=== PATIENT | male | born 1965 | race African-American/Black ===

== ENCOUNTER 2016-09-09 12:56 | Emergency (ER) | payer MEDICARE, MEDICAID ==
[~2016-09-09] VITALS: Ht 180.3 cm; Wt 82.0 kg
[2016-09-09 14:46] LABS: BASOPHILS % 0.5 % (0.0-2.0); EOSINOPHILS % 2.5 % (0.0-5.0); HEMATOCRIT. 27.9 % (42.0-52.0); LYMPHOCYTES % 29.6 % (20.0-50.0); MEAN CORPUSCULAR HEMOGLOBIN 29.5 pg (28.0-32.0); MEAN CORPUSCULAR HGB CONC 32.4 g/dL (31.0-37.0); MEAN CORPUSCULAR VOLUME 91.1 fL (80.0-94.0); MEAN PLATELET VOLUME 8.4 fl (7.4-10.4); MONOCYTES % 13.2 % (2.0-8.0); NEUTROPHILS % 54.2 % (40.0-76.0); PLATELET 292 x1000/uL (130-400); RED BLOOD CELL COUNT 3.06 mill/uL (4.7-6.1); RED CELL DISTRIBUTION WIDTH 17.6 % (11.6-14.6); WHITE BLOOD COUNT 5.7 x1000/uL (4.5-11.0)
[2016-09-09 14:51] LABS: INR 1.2; PROTHROMBIN TIME 12.3 sec
[2016-09-09 14:55] LABS: CALCIUM 7.6 mg/dL (8.5-10.1)
[2016-09-09 19:25] VITALS: BP 122/64
== END 2016-09-09 21:24 | disposition home or self-care (01) ==
LOC: ER 13:03
DX: D68.9 Coagulation defect, unspecified (principal); M96.830 Postprocedural hemorrhage of a musculoskeletal structure following a musculoskeletal system procedure; E11.9 Type 2 diabetes mellitus without complications; Z99.2 Dependence on renal dialysis
CPT/HCPCS: 36415; 80048; 85025; 85610; 99284

== ENCOUNTER 2016-09-27 10:13 | Inpatient (IN) | payer MEDICARE, MEDICAID ==
[~2016-09-27] VITALS: Ht 172.7 cm; Wt 79.4 kg
[2016-09-27 11:12] LABS: BASOPHILS % 0.6 % (0.0-2.0); EOSINOPHILS % 0.1 % (0.0-5.0); HEMATOCRIT. 31.5 % (42.0-52.0); HEMOGLOBIN. 10.1 g/dL (14.0-18.0); MEAN CORPUSCULAR HEMOGLOBIN 28.9 pg (28.0-32.0); MEAN CORPUSCULAR VOLUME 90.5 fL (80.0-94.0); MEAN PLATELET VOLUME 8.3 fl (7.4-10.4); NEUTROPHILS % 77.3 % (40.0-76.0); PLATELET 313 x1000/uL (130-400); RED BLOOD CELL COUNT 3.48 mill/uL (4.7-6.1); RED CELL DISTRIBUTION WIDTH 17.3 % (11.6-14.6)
[2016-09-27 11:20] LABS: INR 1.3
[2016-09-27 11:29] LABS: CARBON DIOXIDE 23 mEq/L (21-32); CHLORIDE 98 mEq/L (98-107); TROPONIN I 0.02 ng/mL (0.00-0.04)
[2016-09-27] MEDS ORDERED: AZITHROMYCIN 500 MG in DEXT 5% WATER 250 ML IV ONE (11:45)
[2016-09-27] MEDS ORDERED: CEFTRIAXONE 1 G PREMIX 50 ML IV ONE (11:45)
[2016-09-27] MEDS ORDERED: IPRATROPIUM/ALBUTEROL 0.5-3(2.5)MG/3ML NEB INH PRN (12:15)
[2016-09-27] MEDS ORDERED: ONDANSETRON HCL 4MG/2ML VIAL IV PRN (12:15)
[2016-09-27] MEDS ORDERED: DIPHENHYDRAMINE 50MG/ML VIAL IV PRN (12:15)
[2016-09-27] MEDS ORDERED: CLONIDINE 0.1MG TABLET PO PRN (12:15)
[2016-09-27] MEDS ORDERED: DOCUSATE SODIUM 100MG CAPSULE PO PRN (12:15)
[2016-09-27] MEDS ORDERED: LORAZEPAM 2MG/ML CPJ IV PRN (12:15)
[2016-09-27] MEDS ORDERED: MAGNESIUM/ALUMINUM HYDROXIDE/SIMETHICONE 30ML UDC PO PRN (12:15)
[2016-09-27] MEDS ORDERED: ACETAMINOPHEN 325MG TABLET PO PRN (12:15)
[2016-09-27] MEDS ORDERED: GUAIFENESIN 200MG/10ML SUGAR FREE UDC PO PRN (12:15)
[2016-09-27] MEDS ORDERED: ENOXAPARIN 40MG/0.4ML SYR SUBCUT SCH (12:15)
[2016-09-27] MEDS ORDERED: DEXTROSE 50% WATER 50ML SYRINGE IV ONE (14:00)
[2016-09-27] MEDS ORDERED: INSULIN REGULAR (HUMULIN R) 300UNITS/3ML IV ONE (14:00)
[2016-09-27] MEDS ORDERED: ALBUTEROL (0.083%) 2.5MG/3ML NEB HHN SCH (14:00)
[2016-09-27] MEDS ORDERED: HYDROMORPHONE HCL/PF 2MG/ML CPJ IV PRN (16:30)
[2016-09-27] MEDS ORDERED: NA PHOS,M-B/NA PHOS,DI-BA ENEMA 118ML PR PRN (16:30)
[2016-09-27 16:50] VITALS: BP 128/80
[2016-09-27] MEDS: BLOOD SUGAR DIAGNOSTIC STRIP TEST SCH ×2 (17:40→21:23)
[2016-09-27] MEDS ORDERED: DEXTROSE 50% WATER 50ML SYRINGE IV PRN (17:45)
[2016-09-27] MEDS: ENOXAPARIN 30MG/0.3ML SYR SUBCUT SCH (18:00)
[2016-09-27] MEDS ORDERED: LEVOFLOXACIN 500MG PREMIX 100 ML IV SCH (18:00)
[2016-09-27] MEDS: INSULIN LISPRO 100 UNITS/ML SUBCUT SCH ×2 (18:19→21:32)
[2016-09-27 20:00] VITALS: BP 119/72
[2016-09-27 20:37] VITALS: BP 119/72
[2016-09-27] MEDS: HYDROCODONE/ACETAMINOPHEN 10/325MG TABLET PO PRN (21:33)
[2016-09-28] VITALS: BP 117/74
[2016-09-28] MEDS: IPRATROPIUM/ALBUTEROL 0.5-3(2.5)MG/3ML NEB HHN SCH ×4 (00:12→20:50)
[2016-09-28] MEDS ORDERED: NEPVIT PO (01:47)
[2016-09-28] MEDS ORDERED: FAMO20TA8 PO (01:47)
[2016-09-28] MEDS ORDERED: GABA-529 PO (01:47)
[2016-09-28] MEDS ORDERED: SEVE800T8 PO (01:47)
[2016-09-28] MEDS ORDERED: LOPE2TAB26 PO (01:47)
[2016-09-28] MEDS ORDERED: DOCU-150 PO (01:47)
[2016-09-28] MEDS ORDERED: ACET-2178 PO (01:47)
[2016-09-28] MEDS ORDERED: ASPI-1035 PO (01:47)
[2016-09-28 04:00] VITALS: BP 105/69
[2016-09-28 06:29] LABS: BASOPHILS % 0.4 % (0.0-2.0); EOSINOPHILS % 0.3 % (0.0-5.0); HEMATOCRIT. 31.9 % (42.0-52.0); HEMOGLOBIN. 10.1 g/dL (14.0-18.0); LYMPHOCYTES % 13.3 % (20.0-50.0); MEAN CORPUSCULAR HEMOGLOBIN 28.6 pg (28.0-32.0); MEAN CORPUSCULAR VOLUME 90.7 fL (80.0-94.0); MEAN PLATELET VOLUME 8.7 fl (7.4-10.4); MONOCYTES % 12.6 % (2.0-8.0); NEUTROPHILS % 73.4 % (40.0-76.0); PLATELET 339 x1000/uL (130-400); RED BLOOD CELL COUNT 3.52 mill/uL (4.7-6.1); RED CELL DISTRIBUTION WIDTH 17.1 % (11.6-14.6)
[2016-09-28 07:07] LABS: CARBON DIOXIDE 26 mEq/L (21-32); CHLORIDE 96 mEq/L (98-107); HDL CHOLESTEROL 51 mg/dL (40-59); LDL CHOLESTEROL 38 mg/dL (5-100)
[2016-09-28 07:12] LABS: TROPONIN I < 0.02 ng/mL (0.00-0.04)
[2016-09-28] MEDS: INSULIN LISPRO 100 UNITS/ML SUBCUT SCH ×4 (07:42→21:37)
[2016-09-28] MEDS: BLOOD SUGAR DIAGNOSTIC STRIP TEST SCH ×4 (07:42→21:29)
[2016-09-28 08:00] VITALS: BP 107/69
[2016-09-28] MEDS: SEVELAMER CARBONATE 800 MG TABLET PO SCH ×3 (09:08→18:37)
[2016-09-28] MEDS: FAMOTIDINE 20MG TABLET PO SCH (09:08)
[2016-09-28] MEDS: ASPIRIN 81MG EC TABLET PO SCH (09:08)
[2016-09-28] MEDS: FOLIC ACID/VITAMIN B COMP W-C TABLET PO SCH (09:08)
[2016-09-28] MEDS: HYDROCODONE/ACETAMINOPHEN 10/325MG TABLET PO PRN ×2 (09:09→13:36)
[2016-09-28 12:00] VITALS: BP 106/70
[2016-09-28 16:00] VITALS: BP 110/68
[2016-09-28] MEDS: ENOXAPARIN 30MG/0.3ML SYR SUBCUT SCH (17:20)
[2016-09-28] MEDS: GABAPENTIN 100MG CAPSULE PO SCH (17:20)
[2016-09-28 20:00] VITALS: BP 113/78
[2016-09-28] MEDS: INSULIN DETEMIR UD 100 UNITS/ML SYR SUBCUT SCH (21:36)
[2016-09-29] VITALS: BP 133/75
[2016-09-29] MEDS: HYDROCODONE/ACETAMINOPHEN 10/325MG TABLET PO PRN ×4 (01:17→22:00)
[2016-09-29] MEDS: IPRATROPIUM/ALBUTEROL 0.5-3(2.5)MG/3ML NEB HHN SCH ×4 (03:05→20:26)
[2016-09-29 03:19] LABS: HEMATOCRIT. 29.6 % (42.0-52.0); HEMOGLOBIN. 9.7 g/dL (14.0-18.0); MEAN CORPUSCULAR HEMOGLOBIN 29.6 pg (28.0-32.0); MEAN CORPUSCULAR VOLUME 90.5 fL (80.0-94.0); MEAN PLATELET VOLUME 8.1 fl (7.4-10.4); PLATELET 304 x1000/uL (130-400); RED BLOOD CELL COUNT 3.27 mill/uL (4.7-6.1)
[2016-09-29 04:00] VITALS: BP 104/65
[2016-09-29] MEDS: BLOOD SUGAR DIAGNOSTIC STRIP TEST SCH ×4 (06:09→22:04)
[2016-09-29 08:30] VITALS: BP 126/85
[2016-09-29 09:50] LABS: PLATELET ESTIMATE NORMAL
[2016-09-29] MEDS: FOLIC ACID/VITAMIN B COMP W-C TABLET PO SCH (10:34)
[2016-09-29] MEDS: FAMOTIDINE 20MG TABLET PO SCH (10:34)
[2016-09-29] MEDS: SEVELAMER CARBONATE 800 MG TABLET PO SCH ×3 (10:34→17:30)
[2016-09-29] MEDS: ASPIRIN 81MG EC TABLET PO SCH (10:35)
[2016-09-29] MEDS: INSULIN LISPRO 100 UNITS/ML SUBCUT SCH ×4 (10:39→22:03)
[2016-09-29 12:00] VITALS: BP 122/81
[2016-09-29 16:51] VITALS: BP 115/74
[2016-09-29] MEDS: GABAPENTIN 100MG CAPSULE PO SCH (17:30)
[2016-09-29] MEDS ORDERED: LEVOFLOXACIN 250MG PREMIX 50 ML IV SCH (18:00)
[2016-09-29] MEDS: ENOXAPARIN 30MG/0.3ML SYR SUBCUT SCH (18:39)
[2016-09-29 20:00] VITALS: BP 121/74
[2016-09-29] MEDS: INSULIN DETEMIR UD 100 UNITS/ML SYR SUBCUT SCH (22:03)
[2016-09-30] VITALS: BP 121/84
[2016-09-30] MEDS: IPRATROPIUM/ALBUTEROL 0.5-3(2.5)MG/3ML NEB HHN SCH ×3 (01:06→14:29)
[2016-09-30] MEDS: HYDROCODONE/ACETAMINOPHEN 10/325MG TABLET PO PRN ×3 (01:50→14:10)
[2016-09-30 04:00] VITALS: BP 122/95
[2016-09-30 06:04] LABS: HEMATOCRIT. 28.8 % (42.0-52.0); HEMOGLOBIN. 9.3 g/dL (14.0-18.0); MEAN CORPUSCULAR HEMOGLOBIN 29.4 pg (28.0-32.0); MEAN CORPUSCULAR VOLUME 90.5 fL (80.0-94.0); MEAN PLATELET VOLUME 8.6 fl (7.4-10.4); PLATELET 285 x1000/uL (130-400); RED BLOOD CELL COUNT 3.18 mill/uL (4.7-6.1); RED CELL DISTRIBUTION WIDTH 17.1 % (11.6-14.6)
[2016-09-30] MEDS: BLOOD SUGAR DIAGNOSTIC STRIP TEST SCH ×2 (07:40→12:29)
[2016-09-30 08:00] VITALS: BP 136/84
[2016-09-30 08:36] LABS: PLATELET ESTIMATE NORMAL
[2016-09-30] MEDS: FOLIC ACID/VITAMIN B COMP W-C TABLET PO SCH (08:49)
[2016-09-30] MEDS: ASPIRIN 81MG EC TABLET PO SCH (08:49)
[2016-09-30] MEDS: SEVELAMER CARBONATE 800 MG TABLET PO SCH ×2 (08:49→14:08)
[2016-09-30] MEDS: INSULIN LISPRO 100 UNITS/ML SUBCUT SCH ×2 (08:50→14:07)
[2016-09-30 12:00] VITALS: BP 124/74
[2016-09-30] MEDS: FAMOTIDINE 20MG TABLET PO SCH (14:07)
[2016-09-30 16:00] VITALS: BP 126/76
[2016-09-30 16:24] VITALS: BP 124/74
[2016-10-01] MEDS ORDERED: LEVOFLOXACIN 250MG TABLET PO SCH (18:00)
== END 2016-09-30 17:25 | DRG 871 ==
LOC: ER 10:37 → 7WST 12:24
PROVIDERS: ADMIT Internal Medicine; ATTEND Internal Medicine
PROC: 5A1D60Z (ICD-10-PCS; principal; 2016-09-30)
DX: A41.9 Sepsis, unspecified organism (principal); J18.9 Pneumonia, unspecified organism; N18.6 End stage renal disease; E46 Unspecified protein-calorie malnutrition; E11.52 Type 2 diabetes mellitus with diabetic peripheral angiopathy with gangrene; I12.0 Hypertensive chronic kidney disease with stage 5 chronic kidney disease or end stage renal disease; I31.3 Pericardial effusion (noninflammatory); E11.69 Type 2 diabetes mellitus with other specified complication; E78.5 Hyperlipidemia, unspecified; E87.70 Fluid overload, unspecified; B19.20 Unspecified viral hepatitis C without hepatic coma; D64.9 Anemia, unspecified; E11.22 Type 2 diabetes mellitus with diabetic chronic kidney disease; E87.5 Hyperkalemia; Z99.2 Dependence on renal dialysis; Z82.49 Family history of ischemic heart disease and other diseases of the circulatory system; Z83.3 Family history of diabetes mellitus; Z89.429 Acquired absence of other toe(s), unspecified side; Z89.512 Acquired absence of left leg below knee; Z68.26 Body mass index [BMI] 26.0-26.9, adult
CPT/HCPCS: 36415; 71010; 80048; 80053; 80061; 82962; 83880; 84484; 85025; 85610; 87040; 93005; 93306; 93970; 94640; 96365; 96375; 97116; 97162; 99291; C1893; J0456; J0696; J1650; J1815; J1956; J7030; J7050; J7060; J7620

== ENCOUNTER 2017-04-14 14:28 | Inpatient (IN) | payer MEDICARE, MEDICAID ==
[~2017-04-14] VITALS: Ht 172.7 cm; Wt 69.9 kg
[~2017-04-14 14:28] MED LIST: ACET-2178 PO; ASPI-1159 PO; DOCU-150 PO; FAMO20TA8 PO; GABA-529 PO; LOPE2TAB26 PO; NEPVIT PO; SEVE800T8 PO
[2017-04-14 15:29] LABS: BASOPHILS % 0.6 % (0.0-2.0); EOSINOPHILS % 1.5 % (0.0-5.0); HEMATOCRIT. 23.1 % (42.0-52.0); HEMOGLOBIN. 7.8 g/dL (14.0-18.0); LYMPHOCYTES % 18.8 % (20.0-50.0); MEAN CORPUSCULAR HEMOGLOBIN 31.8 pg (28.0-32.0); MEAN CORPUSCULAR VOLUME 93.5 fL (80.0-94.0); MEAN PLATELET VOLUME 9.3 fl (7.4-10.4); MONOCYTES % 13.5 % (2.0-8.0); NEUTROPHILS % 65.6 % (40.0-76.0); PLATELET 245 x1000/uL (130-400); RED BLOOD CELL COUNT 2.47 mill/uL (4.7-6.1)
[2017-04-14 15:34] LABS: CHLORIDE 98 mEq/L (98-107)
[2017-04-14 15:35] LABS: INR 1.1; PARTIAL THROMBOPLASTIN TIME 26.9 sec (23.4-31.0); PROTHROMBIN TIME 11.8 sec (9.4-11.6)
[2017-04-14 15:39] LABS: CARBON DIOXIDE 23 mEq/L (21-32)
[2017-04-14 15:44] LABS: TROPONIN I 0.07 ng/mL (0.00-0.04)
[2017-04-14 17:46] LABS: AMMONIA < 25 uMol/L (<32)
[2017-04-14] MEDS ORDERED: POTASSIUM CHLORIDE 20MEQ TABLET SR PO ONE (18:00)
[2017-04-14] MEDS ORDERED: CLONIDINE 0.1MG TABLET PO PRN (18:00)
[2017-04-14] MEDS ORDERED: ONDANSETRON HCL 4MG/2ML VIAL IV PRN (18:00)
[2017-04-14] MEDS ORDERED: IPRATROPIUM/ALBUTEROL 0.5-3(2.5)MG/3ML NEB INH PRN (18:00)
[2017-04-14] MEDS ORDERED: DIPHENHYDRAMINE 50MG/ML VIAL IV PRN (18:00)
[2017-04-14] MEDS ORDERED: ACETAMINOPHEN 325MG TABLET PO PRN (18:00)
[2017-04-14 21:45] VITALS: BP 127/78
[2017-04-14] MEDS ORDERED: AMLO10TA80 PO (23:41)
[2017-04-14] MEDS ORDERED: HYDR-4001 PO (23:41)
[2017-04-14] MEDS ORDERED: CALC667T5 PO (23:41)
[2017-04-15] VITALS (10 sets, daily range): BP systolic 119–145; BP diastolic 71–84
[2017-04-15] MEDS: HYDROCODONE/ACETAMINOPHEN 5/325MG TABLET PO PRN ×3 (00:51→21:53)
[2017-04-15] MEDS ORDERED: DEXTROSE 50% WATER 50ML SYRINGE IV PRN (06:15)
[2017-04-15 06:29] LABS: BASOPHILS % 0.5 % (0.0-2.0); EOSINOPHILS % 1.6 % (0.0-5.0); HEMATOCRIT. 21.2 % (42.0-52.0); LYMPHOCYTES % 21.8 % (20.0-50.0); MEAN CORPUSCULAR HEMOGLOBIN 31.1 pg (28.0-32.0); MEAN PLATELET VOLUME 9.4 fl (7.4-10.4); MONOCYTES % 14.5 % (2.0-8.0); NEUTROPHILS % 61.6 % (40.0-76.0); PLATELET 262 x1000/uL (130-400); RED BLOOD CELL COUNT 2.26 mill/uL (4.7-6.1); RED CELL DISTRIBUTION WIDTH 13.5 % (11.6-14.6)
[2017-04-15] MEDS: BLOOD SUGAR DIAGNOSTIC STRIP TEST SCH ×4 (06:42→21:42)
[2017-04-15 07:12] LABS: CHLORIDE 100 mEq/L (98-107)
[2017-04-15 07:18] LABS: HEMOGLOBIN. 7.1 g/dL (14.0-18.0)
[2017-04-15] MEDS: INSULIN LISPRO 100 UNITS/ML SUBCUT SCH ×4 (07:29→21:54)
[2017-04-15 07:48] LABS: CARBON DIOXIDE 19 mEq/L (21-32); HDL CHOLESTEROL 39 mg/dL (40-59); LDL CHOLESTEROL 33 mg/dL (5-100); PHOSPHORUS 7.1 mg/dL (2.5-4.9); TROPONIN I 0.06 ng/mL (0.00-0.04)
[2017-04-15 10:30] LABS: HEPATITIS B SURFACE ANTIGEN NEGATIVE
[2017-04-15] MEDS ORDERED: LOPERAMIDE HCL 2MG CAPSULE PO PRN (12:45)
[2017-04-15] MEDS: SEVELAMER CARBONATE 800 MG TABLET PO SCH ×3 (13:57→21:43)
[2017-04-15] MEDS: GABAPENTIN 100MG CAPSULE PO SCH ×2 (13:57→21:43)
[2017-04-15] MEDS: CALCIUM ACETATE 667MG CAPSULE PO SCH ×2 (13:57→17:41)
[2017-04-15] MEDS: FAMOTIDINE 20MG TABLET PO SCH (14:01)
[2017-04-15 21:36] LABS: HEMATOCRIT 25.6 % (42.0-52.0); HEMOGLOBIN 8.7 g/dL (14.0-18.0)
[2017-04-16] VITALS: BP 150/84
[2017-04-16 04:00] VITALS: BP 133/75
[2017-04-16] MEDS: BLOOD SUGAR DIAGNOSTIC STRIP TEST SCH ×2 (05:28→11:44)
[2017-04-16] MEDS: GABAPENTIN 100MG CAPSULE PO SCH ×2 (05:30→13:29)
[2017-04-16] MEDS: HYDROCODONE/ACETAMINOPHEN 5/325MG TABLET PO PRN (05:36)
[2017-04-16 07:17] LABS: BASOPHILS % 0.5 % (0.0-2.0); EOSINOPHILS % 1.4 % (0.0-5.0); HEMATOCRIT. 23.8 % (42.0-52.0); HEMOGLOBIN. 7.9 g/dL (14.0-18.0); LYMPHOCYTES % 19.7 % (20.0-50.0); MEAN CORPUSCULAR HEMOGLOBIN 30.9 pg (28.0-32.0); MEAN PLATELET VOLUME 9.4 fl (7.4-10.4); MONOCYTES % 14.5 % (2.0-8.0); NEUTROPHILS % 63.9 % (40.0-76.0); PLATELET 270 x1000/uL (130-400); RED BLOOD CELL COUNT 2.56 mill/uL (4.7-6.1); RED CELL DISTRIBUTION WIDTH 14.3 % (11.6-14.6)
[2017-04-16 07:34] VITALS: BP 124/73
[2017-04-16] MEDS: INSULIN LISPRO 100 UNITS/ML SUBCUT SCH ×2 (08:10→12:54)
[2017-04-16] MEDS: CALCIUM ACETATE 667MG CAPSULE PO SCH ×2 (08:40→12:53)
[2017-04-16] MEDS: SEVELAMER CARBONATE 800 MG TABLET PO SCH ×2 (08:40→12:53)
[2017-04-16] MEDS: FAMOTIDINE 20MG TABLET PO SCH (08:45)
[2017-04-16] MEDS ORDERED: DOCUSATE SODIUM 100MG CAPSULE PO SCH (09:00)
[2017-04-16] MEDS ORDERED: ASPIRIN 81MG EC TABLET PO SCH (09:00)
[2017-04-16] MEDS ORDERED: AMLODIPINE 10MG TABLET PO SCH (09:00)
[2017-04-16] MEDS ORDERED: FOLIC ACID/VITAMIN B COMP W-C TABLET PO SCH (09:00)
[2017-04-16] MEDS ORDERED: POTASSIUM CHLORIDE 10MEQ TABLET SR PO NR (09:20)
[2017-04-16 10:05] LABS: PHOSPHORUS 4.5 mg/dL (2.5-4.9)
[2017-04-16 12:00] VITALS: BP 132/79
[2017-04-16 12:58] LABS: INR 1.1; PROTHROMBIN TIME 11.8 sec (9.4-11.6)
[2017-04-16 16:00] VITALS: BP 117/68
[2017-04-16 16:05] VITALS: BP 117/68
[2017-04-18] MEDS ORDERED: EPOETIN ALFA 10000UNITS/ML VIAL SUBCUT SCH (21:00)
== END 2017-04-16 16:32 | disposition home or self-care (01) | DRG 811 ==
LOC: ER 14:54 → 7WST 15:01 → EDBEDREQ 15:02 → ENRESERV 19:00
PROVIDERS: ADMIT Internal Medicine; ATTEND Internal Medicine
PROC: 30233N1 Transfusion of Nonautologous Red Blood Cells into Peripheral Vein, Percutaneous Approach (ICD-10-PCS; principal; 2017-04-15)
PROC: 5A1D70Z Performance of Urinary Filtration, Intermittent, Less than 6 Hours Per Day (ICD-10-PCS; 2017-04-16)
DX: D64.9 Anemia, unspecified (principal); N18.6 End stage renal disease; E46 Unspecified protein-calorie malnutrition; E72.3 Disorders of lysine and hydroxylysine metabolism; E11.22 Type 2 diabetes mellitus with diabetic chronic kidney disease; E11.51 Type 2 diabetes mellitus with diabetic peripheral angiopathy without gangrene; I12.0 Hypertensive chronic kidney disease with stage 5 chronic kidney disease or end stage renal disease; B19.20 Unspecified viral hepatitis C without hepatic coma; E78.5 Hyperlipidemia, unspecified; E87.6 Hypokalemia; Z79.82 Long term (current) use of aspirin; Z79.899 Other long term (current) drug therapy; Z89.512 Acquired absence of left leg below knee; Z99.2 Dependence on renal dialysis; Z68.23 Body mass index [BMI] 23.0-23.9, adult
CPT/HCPCS: 36415; 71010; 80048; 80053; 80061; 82140; 82270; 82962; 83690; 83735; 84100; 84484; 85014; 85018; 85025; 85044; 85384; 85610; 85730; 86803; 86850; 86900; 86920; 87340; 87493; 93005; 99285; J1815; J7030; J7040; P9016

== ENCOUNTER 2017-08-18 17:25 | Inpatient (IN) | payer MEDICARE, MEDICAID ==
[~2017-08-18] VITALS: Ht 172 cm; Wt 72.6 kg
[~2017-08-18 17:25] MED LIST changes: +AMLO10TA80 PO; +CALC667T5 PO; +HYDR-4001 PO
[2017-08-18 18:25] VITALS: BP 125/72
[2017-08-18] MEDS ORDERED: ONDANSETRON HCL 4MG/2ML VIAL IV PRN (19:00)
[2017-08-18] MEDS ORDERED: PARICALCITOL 5 MCG/ML 1ML IV PRN (19:00)
[2017-08-18] MEDS ORDERED: DEXTROSE 50% WATER 50ML SYRINGE IV PRN (19:00)
[2017-08-18 20:00] VITALS: BP 124/75
[2017-08-18] MEDS ORDERED: CLONIDINE 0.1MG TABLET PO PRN (20:00)
[2017-08-18] MEDS: BLOOD SUGAR DIAGNOSTIC STRIP TEST SCH (21:00)
[2017-08-18] MEDS: METRONIDAZOLE 500 MG PREMIX 100 ML IV SCH (22:33)
[2017-08-18] MEDS: ACETAMINOPHEN 325MG TABLET PO PRN (22:33)
[2017-08-18] MEDS: INSULIN GLARGINE UD 100 UNITS/ML SYR SUBCUT SCH (22:54)
[2017-08-19] MEDS: VANCOMYCIN HCL 1000 MG/20 ML ORAL PO SCH ×4 (01:36→17:26)
[2017-08-19] MEDS: BLOOD SUGAR DIAGNOSTIC STRIP TEST SCH ×4 (06:20→22:59)
[2017-08-19] MEDS: INSULIN LISPRO 100 UNITS/ML SUBCUT SCH ×3 (06:36→17:31)
[2017-08-19 06:52] LABS: BASOPHILS % 1.2 % (0.0-2.0); EOSINOPHILS % 4.2 % (0.0-5.0); HEMATOCRIT. 27.7 % (42.0-52.0); LYMPHOCYTES % 25.3 % (20.0-50.0); MEAN CORPUSCULAR HEMOGLOBIN 29.7 pg (28.0-32.0); MEAN CORPUSCULAR VOLUME 92.4 fL (80.0-94.0); MEAN PLATELET VOLUME 10.7 fl (7.4-10.4); MONOCYTES % 14.3 % (2.0-8.0); PLATELET 320 x1000/uL (130-400); RED CELL DISTRIBUTION WIDTH 16.2 % (11.6-14.6)
[2017-08-19 07:00] LABS: HEMOGLOBIN. 8.9 g/dL (14.0-18.0)
[2017-08-19 08:00] VITALS: BP 115/75
[2017-08-19] MEDS ORDERED: INSULIN LISPRO 100 UNITS/ML SUBCUT SCH (09:00)
[2017-08-19] MEDS: POTASSIUM CHLORIDE 20MEQ TABLET SR PO SCH ×2 (09:27→17:16)
[2017-08-19] MEDS: MIDODRINE HCL 5MG TABLET PO SCH ×3 (09:28→17:00)
[2017-08-19] MEDS: FLUDROCORTISONE ACETATE 0.1MG TABLET PO SCH (09:28)
[2017-08-19] MEDS: LACTOBACILLUS GG CAPSULE PO SCH (09:28)
[2017-08-19] MEDS: ENOXAPARIN 30MG/0.3ML SYR SUBCUT SCH (09:30)
[2017-08-19] MEDS: PSYLLIUM SEED PACKET PO SCH ×2 (09:40→17:00)
[2017-08-19] MEDS: METRONIDAZOLE 500 MG PREMIX 100 ML IV SCH ×2 (10:53→23:05)
[2017-08-19] MEDS ORDERED: BISACODYL 5MG TABLET PO PRN (19:00)
[2017-08-19 20:00] VITALS: BP 118/71
[2017-08-19] MEDS ORDERED: PARICALCITOL 5 MCG/ML 1ML IV SCH (21:00)
[2017-08-19] MEDS: INSULIN GLARGINE UD 100 UNITS/ML SYR SUBCUT SCH (22:00)
[2017-08-19] MEDS: EPOETIN ALFA 4000UNITS/ML VIAL SUBCUT SCH (23:05)
[2017-08-19] MEDS: ACETAMINOPHEN 325MG TABLET PO PRN (23:05)
[2017-08-20] MEDS: VANCOMYCIN HCL 1000 MG/20 ML ORAL PO SCH ×3 (00:01→13:11)
[2017-08-20] MEDS: BLOOD SUGAR DIAGNOSTIC STRIP TEST SCH ×4 (06:31→21:08)
[2017-08-20] MEDS: INSULIN LISPRO 100 UNITS/ML SUBCUT SCH ×3 (06:37→17:46)
[2017-08-20 08:08] VITALS: BP 113/69
[2017-08-20] MEDS ORDERED: DOCUSATE SODIUM 100MG CAPSULE PO SCH (09:00)
[2017-08-20 09:09] LABS: HEMATOCRIT. 29.8 % (42.0-52.0); HEMOGLOBIN. 9.4 g/dL (14.0-18.0); MEAN CORPUSCULAR HEMOGLOBIN 29.2 pg (28.0-32.0); MEAN CORPUSCULAR VOLUME 92.3 fL (80.0-94.0); MEAN PLATELET VOLUME 10.4 fl (7.4-10.4); PLATELET 338 x1000/uL (130-400); RED BLOOD CELL COUNT 3.23 mill/uL (4.7-6.1); RED CELL DISTRIBUTION WIDTH 16.2 % (11.6-14.6)
[2017-08-20] MEDS: LACTOBACILLUS GG CAPSULE PO SCH (09:12)
[2017-08-20] MEDS: POTASSIUM CHLORIDE 20MEQ TABLET SR PO SCH ×2 (09:12→17:42)
[2017-08-20] MEDS: PSYLLIUM SEED PACKET PO SCH ×2 (09:12→17:42)
[2017-08-20] MEDS: FLUDROCORTISONE ACETATE 0.1MG TABLET PO SCH (09:12)
[2017-08-20] MEDS: MIDODRINE HCL 5MG TABLET PO SCH ×3 (09:12→17:42)
[2017-08-20] MEDS: ENOXAPARIN 30MG/0.3ML SYR SUBCUT SCH (09:12)
[2017-08-20 14:19] LABS: PLATELET ESTIMATE NORMAL
[2017-08-20 20:00] VITALS: BP 128/80
[2017-08-20] MEDS: INSULIN GLARGINE UD 100 UNITS/ML SYR SUBCUT SCH (21:15)
[2017-08-21] MEDS: BLOOD SUGAR DIAGNOSTIC STRIP TEST SCH ×4 (06:18→21:26)
[2017-08-21] MEDS: INSULIN LISPRO 100 UNITS/ML SUBCUT SCH ×3 (06:43→17:44)
[2017-08-21 07:16] LABS: HEMATOCRIT. 29.7 % (42.0-52.0); HEMOGLOBIN. 9.5 g/dL (14.0-18.0); MEAN CORPUSCULAR HEMOGLOBIN 29.6 pg (28.0-32.0); MEAN CORPUSCULAR VOLUME 92.5 fL (80.0-94.0); MEAN PLATELET VOLUME 10.2 fl (7.4-10.4); PLATELET 371 x1000/uL (130-400); RED BLOOD CELL COUNT 3.21 mill/uL (4.7-6.1); RED CELL DISTRIBUTION WIDTH 16.1 % (11.6-14.6)
[2017-08-21 07:34] LABS: PHOSPHORUS 5.8 mg/dL (2.5-4.9)
[2017-08-21 07:59] VITALS: BP 97/61
[2017-08-21] MEDS: POTASSIUM CHLORIDE 20MEQ TABLET SR PO SCH ×2 (08:38→17:36)
[2017-08-21] MEDS: FLUDROCORTISONE ACETATE 0.1MG TABLET PO SCH (08:38)
[2017-08-21] MEDS: MIDODRINE HCL 5MG TABLET PO SCH ×3 (08:39→17:36)
[2017-08-21] MEDS: LACTOBACILLUS GG CAPSULE PO SCH (08:39)
[2017-08-21] MEDS: ENOXAPARIN 30MG/0.3ML SYR SUBCUT SCH (08:39)
[2017-08-21] MEDS: PSYLLIUM SEED PACKET PO SCH (08:40)
[2017-08-21] MEDS: ACETAMINOPHEN 325MG TABLET PO PRN (15:23)
[2017-08-21] MEDS ORDERED: PARICALCITOL 2 MCG/ML VIAL IV PRN (17:41)
[2017-08-21 20:00] VITALS: BP 118/74
[2017-08-21] MEDS: INSULIN GLARGINE UD 100 UNITS/ML SYR SUBCUT SCH (21:32)
[2017-08-21 23:28] LABS: PLATELET ESTIMATE NORMAL
[2017-08-21] MEDS ORDERED: HEPARIN SODIUM 1,000 UNIT/1ML VIAL IV SCH (23:45)
[2017-08-22] MEDS: POTASSIUM CHLORIDE 20MEQ TABLET SR PO SCH ×3 (03:21→17:17)
[2017-08-22] MEDS: EPOETIN ALFA 4000UNITS/ML VIAL SUBCUT SCH (03:21)
[2017-08-22] MEDS: BLOOD SUGAR DIAGNOSTIC STRIP TEST SCH ×4 (05:43→21:59)
[2017-08-22] MEDS: INSULIN LISPRO 100 UNITS/ML SUBCUT SCH ×3 (05:58→17:22)
[2017-08-22 08:00] VITALS: BP 110/73
[2017-08-22] MEDS: MIDODRINE HCL 5MG TABLET PO SCH ×3 (08:35→17:18)
[2017-08-22] MEDS: FLUDROCORTISONE ACETATE 0.1MG TABLET PO SCH (08:35)
[2017-08-22] MEDS: LACTOBACILLUS GG CAPSULE PO SCH (08:35)
[2017-08-22] MEDS: ENOXAPARIN 30MG/0.3ML SYR SUBCUT SCH (08:36)
[2017-08-22 12:18] VITALS: BP 109/70
[2017-08-22 16:50] VITALS: BP 116/78
[2017-08-22 20:00] VITALS: BP 119/75
[2017-08-22] MEDS: INSULIN GLARGINE UD 100 UNITS/ML SYR SUBCUT SCH (22:04)
[2017-08-23] MEDS: POTASSIUM CHLORIDE 20MEQ TABLET SR PO SCH ×3 (02:34→17:08)
[2017-08-23] MEDS: BLOOD SUGAR DIAGNOSTIC STRIP TEST SCH ×4 (06:11→21:24)
[2017-08-23] MEDS: INSULIN LISPRO 100 UNITS/ML SUBCUT SCH ×3 (06:12→17:13)
[2017-08-23 08:13] VITALS: BP 129/71
[2017-08-23] MEDS: LACTOBACILLUS GG CAPSULE PO SCH (08:23)
[2017-08-23] MEDS: FLUDROCORTISONE ACETATE 0.1MG TABLET PO SCH (08:23)
[2017-08-23] MEDS: ENOXAPARIN 30MG/0.3ML SYR SUBCUT SCH (08:23)
[2017-08-23] MEDS: MIDODRINE HCL 5MG TABLET PO SCH ×3 (08:24→17:08)
[2017-08-23 20:00] VITALS: BP 134/80
[2017-08-23] MEDS: INSULIN GLARGINE UD 100 UNITS/ML SYR SUBCUT SCH (21:48)
[2017-08-24] MEDS: POTASSIUM CHLORIDE 20MEQ TABLET SR PO SCH ×3 (02:17→17:09)
[2017-08-24] MEDS: BLOOD SUGAR DIAGNOSTIC STRIP TEST SCH ×4 (06:57→21:51)
[2017-08-24] MEDS: INSULIN LISPRO 100 UNITS/ML SUBCUT SCH ×4 (07:02→17:00)
[2017-08-24 08:00] VITALS: BP 125/79
[2017-08-24] MEDS: LACTOBACILLUS GG CAPSULE PO SCH (10:01)
[2017-08-24] MEDS: FLUDROCORTISONE ACETATE 0.1MG TABLET PO SCH (10:02)
[2017-08-24] MEDS: MIDODRINE HCL 5MG TABLET PO SCH ×3 (10:03→17:07)
[2017-08-24] MEDS: ENOXAPARIN 30MG/0.3ML SYR SUBCUT SCH (10:04)
[2017-08-24 17:00] VITALS: BP 129/80
[2017-08-24 20:00] VITALS: BP 130/75
[2017-08-24] MEDS: INSULIN GLARGINE UD 100 UNITS/ML SYR SUBCUT SCH (21:52)
[2017-08-24] MEDS: EPOETIN ALFA 4000UNITS/ML VIAL SUBCUT SCH (22:12)
[2017-08-25] MEDS: POTASSIUM CHLORIDE 20MEQ TABLET SR PO SCH ×2 (02:07→09:32)
[2017-08-25] MEDS: BLOOD SUGAR DIAGNOSTIC STRIP TEST SCH ×2 (06:57→11:41)
[2017-08-25] MEDS: INSULIN LISPRO 100 UNITS/ML SUBCUT SCH ×2 (07:05→12:39)
[2017-08-25 08:04] VITALS: BP 117/74
[2017-08-25] MEDS: ENOXAPARIN 30MG/0.3ML SYR SUBCUT SCH (09:31)
[2017-08-25] MEDS: LACTOBACILLUS GG CAPSULE PO SCH (09:32)
[2017-08-25] MEDS: MIDODRINE HCL 5MG TABLET PO SCH ×2 (09:32→12:40)
[2017-08-25] MEDS: FLUDROCORTISONE ACETATE 0.1MG TABLET PO SCH (09:33)
[2017-08-25 09:52] VITALS: BP 117/74
== END 2017-08-25 14:25 | disposition home health service (06) | DRG 91 ==
PROVIDERS: ADMIT Psychiatry & Neurology Neurology; ATTEND Internal Medicine Geriatric Medicine
PROC: 5A1D70Z Performance of Urinary Filtration, Intermittent, Less than 6 Hours Per Day (ICD-10-PCS; principal; 2017-08-19)
PROC: 5A1D70Z Performance of Urinary Filtration, Intermittent, Less than 6 Hours Per Day (ICD-10-PCS; 2017-08-21)
PROC: 5A1D70Z Performance of Urinary Filtration, Intermittent, Less than 6 Hours Per Day (ICD-10-PCS; 2017-08-23)
PROC: 5A1D70Z Performance of Urinary Filtration, Intermittent, Less than 6 Hours Per Day (ICD-10-PCS; 2017-08-24)
DX: G92 Toxic encephalopathy (principal); A41.9 Sepsis, unspecified organism; E43 Unspecified severe protein-calorie malnutrition; J18.9 Pneumonia, unspecified organism; E11.22 Type 2 diabetes mellitus with diabetic chronic kidney disease; A04.72 Enterocolitis due to Clostridium difficile, not specified as recurrent; E11.42 Type 2 diabetes mellitus with diabetic polyneuropathy; E87.2 Acidosis; M86.8X8 Other osteomyelitis, other site; N18.6 End stage renal disease; I12.0 Hypertensive chronic kidney disease with stage 5 chronic kidney disease or end stage renal disease; I13.11 Hypertensive heart and chronic kidney disease without heart failure, with stage 5 chronic kidney disease, or end stage renal disease; J44.0 Chronic obstructive pulmonary disease with (acute) lower respiratory infection; I48.91 Unspecified atrial fibrillation; E87.5 Hyperkalemia; E11.51 Type 2 diabetes mellitus with diabetic peripheral angiopathy without gangrene; E11.69 Type 2 diabetes mellitus with other specified complication; D72.829 Elevated white blood cell count, unspecified; B19.20 Unspecified viral hepatitis C without hepatic coma; E78.5 Hyperlipidemia, unspecified; D64.9 Anemia, unspecified; E87.6 Hypokalemia; Z68.24 Body mass index [BMI] 24.0-24.9, adult; F06.31 Mood disorder due to known physiological condition with depressive features; K59.00 Constipation, unspecified; D72.825 Bandemia; G62.9 Polyneuropathy, unspecified; R41.0 Disorientation, unspecified; Z89.512 Acquired absence of left leg below knee; Z99.2 Dependence on renal dialysis; Z22.322 Carrier or suspected carrier of Methicillin resistant Staphylococcus aureus; Z82.49 Family history of ischemic heart disease and other diseases of the circulatory system
CPT/HCPCS: 36415; 80048; 82962; 83735; 84100; 85025; 92523; 97110; 97116; 97162; 97166; 97530; 97535; G0515; J0885; J1644; J1650; J1815; J3370; J3490; J7030; J7050

== ENCOUNTER 2018-07-09 12:43 | Inpatient (IN) | payer MEDICARE, MEDICAID ==
[~2018-07-09] VITALS: Ht 172.7 cm; Wt 69.9 kg
[2018-07-09 14:19] LABS: CHLORIDE 94 mEq/L (98-107); INR 1.1; PROTHROMBIN TIME 11.1 sec (9.1-11.1)
[2018-07-09] MEDS ORDERED: SODIUM CHLORIDE 0.9% 500 ML IV ONE (14:24)
[2018-07-09 14:36] LABS: HEMATOCRIT. 39.2 % (42.0-52.0); HEMOGLOBIN. 12.9 g/dL (14.0-18.0); MEAN CORPUSCULAR HEMOGLOBIN 32.3 pg (28.0-32.0); MEAN PLATELET VOLUME 9.6 fl (7.4-10.4); PLATELET 236 x1000/uL (130-400); RED BLOOD CELL COUNT 3.99 mill/uL (4.7-6.1); RED CELL DISTRIBUTION WIDTH 13.8 % (11.6-14.6)
[2018-07-09] MEDS ORDERED: DEXTROSE 50% WATER 50ML SYRINGE IV ONE (14:45)
[2018-07-09] MEDS ORDERED: TRAMADOL 50MG TABLET PO PRN (15:15)
[2018-07-09] MEDS ORDERED: NITROGLYCERIN 0.4MG TABLET SL SL PRN (15:15)
[2018-07-09] MEDS ORDERED: IPRATROPIUM/ALBUTEROL 0.5-3(2.5)MG/3ML NEB INH PRN (15:30)
[2018-07-09] MEDS ORDERED: DEXTROSE 50% WATER 50ML SYRINGE IV PRN (15:30)
[2018-07-09] MEDS ORDERED: GUAIFENESIN 200MG/10ML SUGAR FREE UDC PO PRN (15:30)
[2018-07-09] MEDS ORDERED: MAGNESIUM/ALUMINUM HYDROXIDE/SIMETHICONE 30ML UDC PO PRN (15:30)
[2018-07-09] MEDS ORDERED: ONDANSETRON HCL 4MG/2ML INJ IV PRN (15:30)
[2018-07-09] MEDS ORDERED: ENOXAPARIN 40MG/0.4ML SYR SUBCUT SCH (15:30)
[2018-07-09] MEDS ORDERED: DOCUSATE SODIUM 100MG CAPSULE PO PRN (15:30)
[2018-07-09] MEDS ORDERED: DIPHENHYDRAMINE 50MG/ML VIAL IV PRN (15:30)
[2018-07-09] MEDS ORDERED: ACETAMINOPHEN 325MG TABLET PO PRN (15:30)
[2018-07-09] MEDS ORDERED: CLONIDINE 0.1MG TABLET PO PRN (15:30)
[2018-07-09] MEDS ORDERED: PIPERACILLIN/TAZ 3.375G PREMIX 50 ML IV SCH (15:45)
[2018-07-09 16:01] LABS: PLATELET ESTIMATE NORMAL
[2018-07-09] MEDS ORDERED: FAMOTIDINE 20MG TABLET PO SCH (21:00)
[2018-07-10 04:37] VITALS: BP 106/55
[2018-07-10] MEDS ORDERED: ZOLPIDEM TARTRATE 5MG TABLET PO PRN (04:54)
[2018-07-10] MEDS ORDERED: VANCOMYCIN 1 G PREMIX 200 ML IV SCH (06:00)
[2018-07-10] MEDS ORDERED: INSU3INS8 SUBCUT (06:05)
[2018-07-10] MEDS ORDERED: INSU100I24 SQ (06:05)
[2018-07-10] MEDS ORDERED: NEOM28.38 TP (06:05)
[2018-07-10] MEDS ORDERED: ATOR10TA69 MT (06:05)
[2018-07-10] MEDS ORDERED: SYSOS EACHEYE (06:05)
[2018-07-10] MEDS ORDERED: CICL90CR11 TP (06:05)
[2018-07-10] MEDS ORDERED: CINA30 MT (06:05)
[2018-07-10] MEDS: PIPERACILLIN/TAZ 2.25G PREMIX 50 ML IV SCH ×3 (06:44→21:22)
[2018-07-10] MEDS: BLOOD SUGAR DIAGNOSTIC STRIP TEST SCH ×4 (06:45→20:42)
[2018-07-10] MEDS: INSULIN LISPRO 100 UNITS/ML SUBCUT SCH ×4 (07:50→20:43)
[2018-07-10 08:00] VITALS: BP 96/57
[2018-07-10] MEDS: ENOXAPARIN 30MG/0.3ML SYR SUBCUT SCH ×2 (09:00→19:13)
[2018-07-10] MEDS ORDERED: MEDICATION NOT ON FORMULARY EA (Calcium Acetate 667 MG) PO SCH (09:15)
[2018-07-10] MEDS: FOLIC ACID/VITAMIN B COMP W-C TABLET PO SCH (10:15)
[2018-07-10] MEDS: ASPIRIN 325MG EC TABLET PO SCH (10:15)
[2018-07-10] MEDS: FAMOTIDINE 20MG TABLET PO SCH (10:16)
[2018-07-10] MEDS: SEVELAMER CARBONATE 800 MG TABLET PO SCH ×3 (10:18→19:12)
[2018-07-10] MEDS: CALCIUM ACETATE 667MG CAPSULE PO SCH ×3 (12:50→19:13)
[2018-07-10] MEDS ORDERED: CINACALCET HCL 30MG TABLET PO SCH (18:00)
[2018-07-10 20:00] VITALS: BP 104/67
[2018-07-10] MEDS ORDERED: VANCOMYCIN 750 MG PREMIX 150 ML IV SCH (21:00)
[2018-07-11] VITALS: BP 96/56
[2018-07-11 04:00] VITALS: BP 104/61
[2018-07-11] MEDS: PIPERACILLIN/TAZ 2.25G PREMIX 50 ML IV SCH ×2 (05:42→14:00)
[2018-07-11] MEDS: BLOOD SUGAR DIAGNOSTIC STRIP TEST SCH ×2 (06:34→12:20)
[2018-07-11] MEDS: INSULIN LISPRO 100 UNITS/ML SUBCUT SCH ×2 (07:50→12:50)
[2018-07-11] MEDS: SEVELAMER CARBONATE 800 MG TABLET PO SCH (10:04)
[2018-07-11] MEDS: FAMOTIDINE 20MG TABLET PO SCH (10:04)
[2018-07-11] MEDS: CALCIUM ACETATE 667MG CAPSULE PO SCH (10:05)
[2018-07-11] MEDS: FOLIC ACID/VITAMIN B COMP W-C TABLET PO SCH (10:05)
[2018-07-11] MEDS: ASPIRIN 325MG EC TABLET PO SCH (10:05)
[2018-07-11] MEDS: ENOXAPARIN 30MG/0.3ML SYR SUBCUT SCH (10:06)
[2018-07-11 16:32] VITALS: BP 142/74
== END 2018-07-11 17:19 | disposition home or self-care (01) | DRG 871 ==
LOC: ER 13:45 → 6WST 15:04 → SUPCPDRO 15:09 → ENRESERV 07-10 03:58
PROVIDERS: ADMIT Internal Medicine; ATTEND Internal Medicine
PROC: 5A1D70Z Performance of Urinary Filtration, Intermittent, Less than 6 Hours Per Day (ICD-10-PCS; principal; 2018-07-10)
DX: A41.9 Sepsis, unspecified organism (principal); N18.6 End stage renal disease; I12.0 Hypertensive chronic kidney disease with stage 5 chronic kidney disease or end stage renal disease; E87.1 Hypo-osmolality and hyponatremia; T38.3X1A Poisoning by insulin and oral hypoglycemic [antidiabetic] drugs, accidental (unintentional), initial encounter; E11.649 Type 2 diabetes mellitus with hypoglycemia without coma; I95.9 Hypotension, unspecified; D89.2 Hypergammaglobulinemia, unspecified; E11.22 Type 2 diabetes mellitus with diabetic chronic kidney disease; D63.1 Anemia in chronic kidney disease; R94.5 Abnormal results of liver function studies; R50.9 Fever, unspecified; E83.51 Hypocalcemia; Z79.4 Long term (current) use of insulin; Z83.3 Family history of diabetes mellitus; Z89.612 Acquired absence of left leg above knee; Z99.2 Dependence on renal dialysis; Z79.82 Long term (current) use of aspirin; Z79.899 Other long term (current) drug therapy; Y92.89 Other specified places as the place of occurrence of the external cause
CPT/HCPCS: 36415; 71045; 80061; 82962; 83036; 83605; 84484; 86850; 86900; 93005; 93970; 96374; 99285; J1650; J2543; J3370; J7040

== ENCOUNTER 2018-09-19 15:46 | Inpatient (IN) | payer MEDICARE, MEDICAID ==
[~2018-09-19] VITALS: Ht 172.7 cm; Wt 74.8 kg
[~2018-09-19 15:46] MED LIST changes: +ATOR10TA69 MT; +CICL90CR11 TP; +CINA30 MT; +INSU100I24 SQ; +INSU3INS8 SUBCUT; +NEOM28.38 TP; +SYSOS EACHEYE
[2018-09-19] MEDS ORDERED: VANCOMYCIN 1 G PREMIX 200 ML IV SCH (17:00)
[2018-09-19] MEDS ORDERED: PIPERACILLIN/TAZ 3.375G PREMIX 50 ML IV ONE (17:00)
[2018-09-19 17:37] LABS: HEMATOCRIT. 35.1 % (42.0-52.0); HEMOGLOBIN. 11.6 g/dL (14.0-18.0); MEAN CORPUSCULAR HEMOGLOBIN 31.6 pg (28.0-32.0); MEAN CORPUSCULAR VOLUME 95.2 fL (80.0-94.0); MEAN PLATELET VOLUME 9.3 fl (7.4-10.4); PLATELET 320 x1000/uL (130-400); RED BLOOD CELL COUNT 3.69 mill/uL (4.7-6.1); RED CELL DISTRIBUTION WIDTH 13.4 % (11.6-14.6)
[2018-09-19 17:43] LABS: CHLORIDE 95 mEq/L (98-107)
[2018-09-19 18:08] LABS: PLATELET ESTIMATE NORMAL
[2018-09-20] VITALS (7 sets, daily range): BP systolic 80–105; BP diastolic 44–61
[2018-09-20] MEDS ORDERED: LOPERAMIDE 2 MG/10 ML UDC PO PRN (02:00)
[2018-09-20] MEDS ORDERED: CHOL4PAC5 MT (02:03)
[2018-09-20] MEDS ORDERED: PIPERACILLIN/TAZ 2.25G PREMIX 50 ML IV SCH (02:30)
[2018-09-20] MEDS ORDERED: DEXTROSE 50% WATER 50ML SYRINGE IV PRN (02:30)
[2018-09-20] MEDS: PIPERACILLIN/TAZ 2.25G PREMIX 50 ML IV SCH ×2 (05:46→20:37)
[2018-09-20] MEDS: GABAPENTIN 100MG CAPSULE PO SCH ×3 (05:55→21:29)
[2018-09-20] MEDS: INSULIN LISPRO 100 UNITS/ML SUBCUT SCH ×4 (06:52→21:31)
[2018-09-20] MEDS: BLOOD SUGAR DIAGNOSTIC STRIP TEST SCH ×4 (06:52→21:00)
[2018-09-20] MEDS: FOLIC ACID/VITAMIN B COMP W-C TABLET PO SCH (08:33)
[2018-09-20] MEDS: DOCUSATE SODIUM 250MG CAPSULE PO SCH (08:34)
[2018-09-20] MEDS: CALCIUM ACETATE 667MG CAPSULE PO SCH ×3 (08:34→17:49)
[2018-09-20] MEDS: ASPIRIN 81MG TABLET PO SCH (08:34)
[2018-09-20] MEDS ORDERED: AMLODIPINE 10MG TABLET PO SCH (09:00)
[2018-09-20] MEDS ORDERED: SEVELAMER CARBONATE 800 MG TABLET PO SCH (09:00)
[2018-09-20] MEDS ORDERED: SODIUM CHLORIDE 0.9% 1,000 ML IV SCH (14:45)
[2018-09-20] MEDS: HEPARIN 5000 UNITS/ML VIAL SUBCUT SCH (16:00)
[2018-09-20] MEDS ORDERED: CINACALCET HCL 30MG TABLET PO SCH ×2 (18:00)
[2018-09-20 20:09] LABS: INR 1.1
[2018-09-20 20:21] LABS: T4 FREE 1.23 ng/dL (0.76-1.46)
[2018-09-20] MEDS: ATORVASTATIN CALCIUM 10MG TABLET PO SCH (20:38)
[2018-09-20] MEDS ORDERED: FAMOTIDINE 20MG TABLET PO SCH (21:00)
[2018-09-20] MEDS: HYDROCODONE/ACETAMINOPHEN 5/325MG TABLET PO PRN (21:29)
[2018-09-20] MEDS ORDERED: VANCOMYCIN 1 G PREMIX 200 ML IV NR (22:00)
[2018-09-21] VITALS (29 sets, daily range): BP systolic 80–145; BP diastolic 41–69
[2018-09-21] MEDS: PIPERACILLIN/TAZ 2.25G PREMIX 50 ML IV SCH (05:35)
[2018-09-21] MEDS: HEPARIN 5000 UNITS/ML VIAL SUBCUT SCH ×2 (05:36→17:53)
[2018-09-21] MEDS: GABAPENTIN 100MG CAPSULE PO SCH ×3 (05:36→21:23)
[2018-09-21] MEDS: BLOOD SUGAR DIAGNOSTIC STRIP TEST SCH ×3 (06:10→21:15)
[2018-09-21] MEDS: INSULIN LISPRO 100 UNITS/ML SUBCUT SCH ×4 (06:21→21:24)
[2018-09-21 06:40] LABS: HEMATOCRIT. 31.5 % (42.0-52.0); HEMOGLOBIN. 10.5 g/dL (14.0-18.0); MEAN CORPUSCULAR HEMOGLOBIN 32.1 pg (28.0-32.0); MEAN CORPUSCULAR VOLUME 96.2 fL (80.0-94.0); MEAN PLATELET VOLUME 8.5 fl (7.4-10.4); PLATELET 279 x1000/uL (130-400); RED BLOOD CELL COUNT 3.27 mill/uL (4.7-6.1); RED CELL DISTRIBUTION WIDTH 13.1 % (11.6-14.6)
[2018-09-21] MEDS: CALCIUM ACETATE 667MG CAPSULE PO SCH ×2 (07:40→12:24)
[2018-09-21] MEDS: FOLIC ACID/VITAMIN B COMP W-C TABLET PO SCH (09:00)
[2018-09-21] MEDS: AMLODIPINE 10MG TABLET PO SCH (09:00)
[2018-09-21 09:33] LABS: HEMATOCRIT 31.9 % (42.0-52.0); HEMOGLOBIN 10.6 g/dL (14.0-18.0); MEAN CORPUSCULAR HEMOGLOBIN 31.8 pg (28.0-32.0); MEAN CORPUSCULAR VOLUME 95.8 fL (80.0-94.0); PLATELET 317 x1000/uL (130-400); RED BLOOD CELL COUNT 3.33 mill/uL (4.7-6.1); RED CELL DISTRIBUTION WIDTH 12.9 % (11.6-14.6)
[2018-09-21 10:28] LABS: PLATELET ESTIMATE NORMAL
[2018-09-21] MEDS: DOCUSATE SODIUM 250MG CAPSULE PO SCH (11:00)
[2018-09-21] MEDS: ASPIRIN 81MG TABLET PO SCH (11:01)
[2018-09-21] MEDS: HYDROCODONE/ACETAMINOPHEN 5/325MG TABLET PO PRN (11:01)
[2018-09-21] MEDS ORDERED: VANCOMYCIN 1 G PREMIX 200 ML IV NR (13:00)
[2018-09-21] MEDS ORDERED: POTASSIUM CHLORIDE 20MEQ TABLET SR PO SCH (13:45)
[2018-09-21] MEDS ORDERED: SODIUM BICARBONATE 4% (2.4MEQ) 5ML VIAL IV ONE (14:58)
[2018-09-21] MEDS ORDERED: LIDOCAINE HCL 1% 20ML VIAL (Pyxis) INJ ONE (14:58)
[2018-09-21 19:23] LABS: HEMATOCRIT 25.5 % (42.0-52.0); HEMOGLOBIN 8.3 g/dL (14.0-18.0); MEAN CORPUSCULAR HEMOGLOBIN 31.2 pg (28.0-32.0); MEAN CORPUSCULAR VOLUME 96.1 fL (80.0-94.0); PLATELET 278 x1000/uL (130-400); RED BLOOD CELL COUNT 2.66 mill/uL (4.7-6.1); RED CELL DISTRIBUTION WIDTH 13.2 % (11.6-14.6)
[2018-09-21 20:33] LABS: INR 1.1; PROTHROMBIN TIME 11.7 sec (9.6-11.0)
[2018-09-21] MEDS ORDERED: ACETAMINOPHEN 325MG TABLET PO PRN (20:45)
[2018-09-21] MEDS: ATORVASTATIN CALCIUM 10MG TABLET PO SCH (21:23)
[2018-09-21] MEDS: FAMOTIDINE 20MG/2ML VIAL IV SCH (23:50)
[2018-09-22] VITALS (108 sets, daily range): BP systolic 86–183; BP diastolic 44–112
[2018-09-22] MEDS: PIPERACILLIN/TAZ 2.25G PREMIX 50 ML IV SCH ×2 (00:10→06:33)
[2018-09-22] MEDS ORDERED: SODIUM CHLORIDE 0.9% 1,000 ML IV NR (03:00)
[2018-09-22] MEDS: GABAPENTIN 100MG CAPSULE PO SCH ×3 (06:00→21:31)
[2018-09-22 06:05] LABS: HEMATOCRIT 25.8 % (42.0-52.0); HEMOGLOBIN 8.4 g/dL (14.0-18.0); MEAN CORPUSCULAR HEMOGLOBIN 30.9 pg (28.0-32.0); MEAN CORPUSCULAR VOLUME 94.9 fL (80.0-94.0); PLATELET 228 x1000/uL (130-400); RED BLOOD CELL COUNT 2.72 mill/uL (4.7-6.1)
[2018-09-22] MEDS: BLOOD SUGAR DIAGNOSTIC STRIP TEST SCH ×3 (07:50→17:29)
[2018-09-22] MEDS: CALCIUM ACETATE 667MG CAPSULE PO SCH ×4 (08:20→17:20)
[2018-09-22] MEDS ORDERED: DEXT 5%/0.45% NACL 500ML 1,000 ML IV ONE (08:45)
[2018-09-22] MEDS ORDERED: DEXT 5%/0.45% NACL 1000ML 1,000 ML IV SCH (09:00)
[2018-09-22] MEDS: AMLODIPINE 10MG TABLET PO SCH (09:00)
[2018-09-22 09:36] LABS: HEMATOCRIT 24.4 % (42.0-52.0); HEMOGLOBIN 8.2 g/dL (14.0-18.0)
[2018-09-22] MEDS: DOCUSATE SODIUM 250MG CAPSULE PO SCH (10:13)
[2018-09-22] MEDS: FAMOTIDINE 20MG/2ML VIAL IV SCH (10:14)
[2018-09-22] MEDS: FOLIC ACID/VITAMIN B COMP W-C TABLET PO SCH (10:14)
[2018-09-22] MEDS: INSULIN LISPRO 100 UNITS/ML SUBCUT SCH ×3 (10:15→17:30)
[2018-09-22 11:59] LABS: HEMOGLOBIN 7.3 g/dL (14.0-18.0)
[2018-09-22] MEDS ORDERED: VANCOMYCIN 750 MG PREMIX 150 ML IV SCH (14:00)
[2018-09-22] MEDS: MEROPENEM 500 MG in SODIUM CHLORIDE 0.9% 50 ML IV SCH (17:21)
[2018-09-22 20:26] LABS: HEMATOCRIT 26.9 % (42.0-52.0); HEMOGLOBIN 9.1 g/dL (14.0-18.0)
[2018-09-22] MEDS: HYDRALAZINE 20MG/ML VIAL IV PRN (20:28)
[2018-09-22] MEDS: ATORVASTATIN CALCIUM 10MG TABLET PO SCH (21:31)
[2018-09-22 23:36] LABS: HEMATOCRIT 26.2 % (42.0-52.0); HEMOGLOBIN 8.9 g/dL (14.0-18.0)
[2018-09-23] VITALS (34 sets, daily range): BP systolic 105–190; BP diastolic 29–84
[2018-09-23] MEDS: BLOOD SUGAR DIAGNOSTIC STRIP TEST SCH ×4 (00:02→18:00)
[2018-09-23] MEDS: INSULIN LISPRO 100 UNITS/ML SUBCUT SCH ×4 (00:07→17:12)
[2018-09-23 02:50] LABS: HEMATOCRIT 24.5 % (42.0-52.0); HEMOGLOBIN 8.5 g/dL (14.0-18.0)
[2018-09-23] MEDS: HYDRALAZINE 20MG/ML VIAL IV PRN (06:29)
[2018-09-23] MEDS: GABAPENTIN 100MG CAPSULE PO SCH ×3 (06:29→21:09)
[2018-09-23 06:42] LABS: HEMATOCRIT 26.3 % (42.0-52.0); HEMOGLOBIN 8.9 g/dL (14.0-18.0)
[2018-09-23 06:48] LABS: HEMATOCRIT 26.7 % (42.0-52.0); HEMOGLOBIN 8.8 g/dL (14.0-18.0); MEAN CORPUSCULAR HEMOGLOBIN 30.8 pg (28.0-32.0); MEAN CORPUSCULAR VOLUME 93.1 fL (80.0-94.0); PLATELET 231 x1000/uL (130-400); RED BLOOD CELL COUNT 2.87 mill/uL (4.7-6.1); RED CELL DISTRIBUTION WIDTH 15.3 % (11.6-14.6)
[2018-09-23] MEDS: CALCIUM ACETATE 667MG CAPSULE PO SCH ×3 (09:10→19:48)
[2018-09-23] MEDS: FOLIC ACID/VITAMIN B COMP W-C TABLET PO SCH (09:10)
[2018-09-23] MEDS: DOCUSATE SODIUM 250MG CAPSULE PO SCH (09:10)
[2018-09-23] MEDS: AMLODIPINE 5MG TABLET PO SCH (09:10)
[2018-09-23] MEDS: FAMOTIDINE 20MG/2ML VIAL IV SCH (09:11)
[2018-09-23] MEDS: HYDROCODONE/ACETAMINOPHEN 5/325MG TABLET PO PRN ×2 (09:13→19:56)
[2018-09-23 11:38] LABS: HEMATOCRIT 25.8 % (42.0-52.0); HEMOGLOBIN 8.6 g/dL (14.0-18.0)
[2018-09-23 14:55] LABS: HEMATOCRIT 25.3 % (42.0-52.0); HEMOGLOBIN 8.6 g/dL (14.0-18.0)
[2018-09-23] MEDS: MEROPENEM 500 MG in SODIUM CHLORIDE 0.9% 50 ML IV SCH (16:53)
[2018-09-23 19:03] LABS: HEMATOCRIT 26.3 % (42.0-52.0); HEMOGLOBIN 8.8 g/dL (14.0-18.0)
[2018-09-23] MEDS: CLONIDINE 0.1MG TABLET PO PRN (19:10)
[2018-09-23] MEDS: ATORVASTATIN CALCIUM 10MG TABLET PO SCH (21:09)
[2018-09-23 22:56] LABS: HEMATOCRIT 23.6 % (42.0-52.0)
[2018-09-24] VITALS (65 sets, daily range): BP systolic 41–167; BP diastolic 20–103
[2018-09-24] MEDS: BLOOD SUGAR DIAGNOSTIC STRIP TEST SCH ×4 (00:07→17:44)
[2018-09-24 03:56] LABS: HEMATOCRIT 24.2 % (42.0-52.0); HEMOGLOBIN 8.2 g/dL (14.0-18.0)
[2018-09-24 04:11] LABS: PHOSPHORUS 8.2 mg/dL (2.5-4.9)
[2018-09-24] MEDS: GABAPENTIN 100MG CAPSULE PO SCH ×3 (05:14→22:00)
[2018-09-24] MEDS: CLONIDINE 0.1MG TABLET PO PRN (05:15)
[2018-09-24] MEDS: INSULIN LISPRO 100 UNITS/ML SUBCUT SCH ×4 (05:29→18:00)
[2018-09-24] MEDS: CALCIUM ACETATE 667MG CAPSULE PO SCH ×3 (08:44→17:20)
[2018-09-24] MEDS: FOLIC ACID/VITAMIN B COMP W-C TABLET PO SCH (08:44)
[2018-09-24] MEDS: FAMOTIDINE 20MG/2ML VIAL IV SCH (08:44)
[2018-09-24] MEDS: AMLODIPINE 5MG TABLET PO SCH (08:45)
[2018-09-24] MEDS: SEVELAMER CARBONATE 800 MG TABLET PO SCH ×3 (08:46→17:50)
[2018-09-24] MEDS: DOCUSATE SODIUM 250MG CAPSULE PO SCH (08:46)
[2018-09-24 12:09] LABS: HEMATOCRIT 25.6 % (42.0-52.0); HEMOGLOBIN 8.4 g/dL (14.0-18.0)
[2018-09-24] MEDS: HYDROCODONE/ACETAMINOPHEN 5/325MG TABLET PO PRN (14:21)
[2018-09-24] MEDS: MIDODRINE HCL 5MG TABLET PO SCH ×2 (16:05→16:26)
[2018-09-24] MEDS: MEROPENEM 500 MG in SODIUM CHLORIDE 0.9% 50 ML IV SCH (16:05)
[2018-09-24] MEDS ORDERED: SODIUM CHLORIDE 0.9% 500 ML IV ONE (17:30)
[2018-09-24] MEDS: ONDANSETRON HCL 4MG/2ML INJ IV PRN (18:25)
[2018-09-24] MEDS ORDERED: DEXT 5%/0.45% NACL 1000ML 1,000 ML IV SCH (18:45)
[2018-09-24 19:01] LABS: HEMATOCRIT 22.2 % (42.0-52.0); HEMOGLOBIN 7.4 g/dL (14.0-18.0)
[2018-09-24 19:02] LABS: BASOPHILS % 0.5 % (0.0-2.0); EOSINOPHILS % 0.9 % (0.0-5.0); HEMATOCRIT. 22.4 % (42.0-52.0); HEMOGLOBIN. 7.5 g/dL (14.0-18.0); LYMPHOCYTES % 11.3 % (20.0-50.0); MEAN CORPUSCULAR HEMOGLOBIN 31.4 pg (28.0-32.0); MEAN CORPUSCULAR VOLUME 93.9 fL (80.0-94.0); MEAN PLATELET VOLUME 8.6 fl (7.4-10.4); MONOCYTES % 6.5 % (2.0-8.0); NEUTROPHILS % 80.8 % (40.0-76.0); PLATELET 201 x1000/uL (130-400); RED BLOOD CELL COUNT 2.38 mill/uL (4.7-6.1); RED CELL DISTRIBUTION WIDTH 14.5 % (11.6-14.6)
[2018-09-24 19:07] LABS: D-DIMER 1.17 mg/L FEU (<0.50); INR 1.2; PARTIAL THROMBOPLASTIN TIME 30.3 sec (23.4-31.0); PROTHROMBIN TIME 11.9 sec (9.6-11.0)
[2018-09-24] MEDS: NOREPINEPHRINE 16 MG in DEXT 5% WATER 234 ML IV PRN (20:31)
[2018-09-24] MEDS: ATORVASTATIN CALCIUM 10MG TABLET PO SCH (21:00)
[2018-09-25] VITALS (134 sets, daily range): BP systolic 47–165; BP diastolic 28–127
[2018-09-25] MEDS ORDERED: SODIUM CHLORIDE 0.9% 250 ML IV ONE
[2018-09-25] MEDS: BLOOD SUGAR DIAGNOSTIC STRIP TEST SCH ×4 (00:41→17:50)
[2018-09-25] MEDS: METOCLOPRAMIDE HCL 10MG/2ML VIAL IV SCH ×4 (00:51→17:52)
[2018-09-25] MEDS: INSULIN LISPRO 100 UNITS/ML SUBCUT SCH ×4 (00:52→17:50)
[2018-09-25] MEDS ORDERED: PANTOPRAZOLE 80 MG in SODIUM CHLORIDE 0.9% 100 ML IV SCH (02:00)
[2018-09-25] MEDS ORDERED: SODIUM CHLORIDE 0.9% 200 ML IV ONE ×2 (02:15→06:30)
[2018-09-25] MEDS: GABAPENTIN 100MG CAPSULE PO SCH ×3 (05:23→21:51)
[2018-09-25 05:41] LABS: HEMATOCRIT. 25.2 % (42.0-52.0); MEAN CORPUSCULAR HEMOGLOBIN 30.8 pg (28.0-32.0); MEAN CORPUSCULAR VOLUME 96.6 fL (80.0-94.0); MEAN PLATELET VOLUME 9.2 fl (7.4-10.4); PLATELET 197 x1000/uL (130-400); RED BLOOD CELL COUNT 2.61 mill/uL (4.7-6.1); RED CELL DISTRIBUTION WIDTH 14.5 % (11.6-14.6)
[2018-09-25 05:54] LABS: INR 1.2; PROTHROMBIN TIME 12.6 sec (9.6-11.0)
[2018-09-25] MEDS ORDERED: PANTOPRAZOLE SODIUM 40 MG/VIAL IV SCH (06:00)
[2018-09-25] MEDS: CALCIUM ACETATE 667MG CAPSULE PO SCH ×3 (08:20→17:52)
[2018-09-25] MEDS: SEVELAMER CARBONATE 800 MG TABLET PO SCH ×3 (08:50→17:52)
[2018-09-25] MEDS ORDERED: FAMOTIDINE 20MG/2ML VIAL IV SCH (09:00)
[2018-09-25] MEDS: FOLIC ACID/VITAMIN B COMP W-C TABLET PO SCH (09:00)
[2018-09-25] MEDS: DOCUSATE SODIUM 250MG CAPSULE PO SCH (09:00)
[2018-09-25] MEDS: MIDODRINE HCL 5MG TABLET PO SCH ×3 (09:13→19:53)
[2018-09-25] MEDS ORDERED: SODIUM CHLORIDE 0.9% 250 ML IV NR (11:13)
[2018-09-25 12:16] LABS: BG BASE EXCESS -7.7 mmol/L (-2.0-2.0); BG CARBOXYHEMOGLOBIN 0.3 % (0.5-1.5); BG HCO3 ACT 16.8 mmol/L (22.0-26.0); BG METHEMOGLOBIN 0.3 % (0.0-1.5); BG OXYHEMOGLOBIN 96.4 % (94.0-97.0); BG PCO2 30.1 mmHg (35.0-45.0); BG PH 7.365 (7.350-7.450); BG PO2 102.1 mmHg (75.0-100.0); BG SAMPLE SITE LEFT RADIAL; BG TOTAL HEMOGLOBIN 7.5 g/dL (12.0-18.0); BG VENT MODE ROOM AIR
[2018-09-25 12:42] LABS: HEMATOCRIT 20.4 % (42.0-52.0); HEMOGLOBIN 6.7 g/dL (14.0-18.0)
[2018-09-25] MEDS ORDERED: BUPIVACAINE HCL/PF 0.5% (5MG/ML) 10ML ONE ×2 (12:59→13:00)
[2018-09-25 13:02] LABS: NUCLEATED RED BLOOD CELLS 1 /100 WBC; PLATELET ESTIMATE NORMAL
[2018-09-25] MEDS ORDERED: SODIUM CHLORIDE 0.9% 10ML VIAL ONE (13:38)
[2018-09-25] MEDS ORDERED: LIDOCAINE HCL/PF 1% 10 MG/ML 5ML VIAL ONE (13:38)
[2018-09-25] MEDS ORDERED: ROCURONIUM BROMIDE 10MG/ML VIAL 5ML IV ONE ×2 (13:38→14:46)
[2018-09-25] MEDS ORDERED: FENTANYL CITRATE/PF 50MCG/ML 2ML VIAL ONE ×2 (13:38→14:41)
[2018-09-25] MEDS ORDERED: PROPOFOL 200MG/20ML VIAL IV ONE (13:38)
[2018-09-25] MEDS ORDERED: MIDAZOLAM HCL 2 MG/2 ML VIAL ONE (13:38)
[2018-09-25] MEDS ORDERED: GLYCOPYRROLATE 0.2 MG/ML 2ML VIAL ONE (13:38)
[2018-09-25] MEDS ORDERED: NEOSTIGMINE METHYLSULFATE 1MG/ML 10 ML VIAL ONE (13:38)
[2018-09-25] MEDS ORDERED: PHENYLEPHRINE HCL 10 MG/ML 1ML (IV VIAL) IV ONE (13:39)
[2018-09-25] MEDS ORDERED: SUCCINYLCHOLINE CHLORIDE 200MG/10ML IV ONE (13:39)
[2018-09-25] MEDS ORDERED: METOCLOPRAMIDE HCL 10MG/2ML VIAL ONE (13:39)
[2018-09-25] MEDS ORDERED: ONDANSETRON HCL 4MG/2ML INJ ONE (13:39)
[2018-09-25] MEDS ORDERED: EPHEDRINE SULFATE 50MG/ML VIAL ONE (13:39)
[2018-09-25] MEDS ORDERED: BUPIVACAINE HCL 0.5% (5MG/ML) 50ML ONE (14:02)
[2018-09-25] MEDS ORDERED: METRONIDAZOLE 500 MG PREMIX 100 ML IV ONE (14:21)
[2018-09-25] MEDS ORDERED: LEVOFLOXACIN 500MG PREMIX 100 ML IV ONE (14:21)
[2018-09-25 14:34] LABS: HEMATOCRIT 22.9 % (42.0-52.0); HEMOGLOBIN 7.7 g/dL (14.0-18.0); MEAN CORPUSCULAR HEMOGLOBIN 30.6 pg (28.0-32.0); PLATELET 154 x1000/uL (130-400); RED BLOOD CELL COUNT 2.52 mill/uL (4.7-6.1); RED CELL DISTRIBUTION WIDTH 14.2 % (11.6-14.6)
[2018-09-25 14:49] LABS: INR 1.3; PARTIAL THROMBOPLASTIN TIME 35.9 sec (23.4-31.0); PROTHROMBIN TIME 13.1 sec (9.6-11.0)
[2018-09-25] MEDS ORDERED: ONDANSETRON HCL 4MG/2ML INJ IV PRN ×2 (15:15)
[2018-09-25] MEDS ORDERED: MEPERIDINE HCL/PF 25MG/ML CPJ IV PRN (15:15)
[2018-09-25] MEDS ORDERED: HYDROMORPHONE HCL/PF 2MG/ML CPJ IV PRN (15:15)
[2018-09-25] MEDS ORDERED: LEVOFLOXACIN 500MG PREMIX 100 ML IV SCH (15:15)
[2018-09-25] MEDS ORDERED: ACETAMINOPHEN 650MG SUPP PR PRN (15:15)
[2018-09-25] MEDS ORDERED: LABETALOL 5MG/ML SYR 20 MG/4 ML SYRINGE IV PRN (16:00)
[2018-09-25 16:46] LABS: INR 1.3; PROTHROMBIN TIME 12.9 sec (9.6-11.0)
[2018-09-25 16:47] LABS: BASOPHILS % 0.4 % (0.0-2.0); EOSINOPHILS % 0.5 % (0.0-5.0); HEMOGLOBIN. 8.8 g/dL (14.0-18.0); LYMPHOCYTES % 12.5 % (20.0-50.0); MEAN CORPUSCULAR HEMOGLOBIN 30.3 pg (28.0-32.0); MEAN CORPUSCULAR VOLUME 89.2 fL (80.0-94.0); MEAN PLATELET VOLUME 8.8 fl (7.4-10.4); NEUTROPHILS % 78.6 % (40.0-76.0); PLATELET 161 x1000/uL (130-400); RED BLOOD CELL COUNT 2.91 mill/uL (4.7-6.1); RED CELL DISTRIBUTION WIDTH 14.8 % (11.6-14.6)
[2018-09-25] MEDS ORDERED: DEXT 5%/0.45% NACL KCL 20MEQ/L 1,000 ML IV SCH (17:00)
[2018-09-25 17:01] LABS: BG BASE EXCESS -4.2 mmol/L (-2.0-2.0); BG CARBOXYHEMOGLOBIN 0.3 % (0.5-1.5); BG DEOXYHEMOGLOBIN 0.8 % (0.0-5.0); BG HCO3 ACT 19.8 mmol/L (22.0-26.0); BG METHEMOGLOBIN 0.3 % (0.0-1.5); BG OXYGEN SATURATION 99.2 % (92.0-98.5); BG OXYHEMOGLOBIN 98.6 % (94.0-97.0); BG PCO2 31.9 mmHg (35.0-45.0); BG PO2 554.8 mmHg (75.0-100.0); BG SAMPLE SITE LEFT RADIAL; BG TIDAL VOLUME(mL) 500 mL; BG TOTAL HEMOGLOBIN 9.1 g/dL (12.0-18.0); BG VENT MODE VENT - A/C; BG VENT RATE 10 set
[2018-09-25] MEDS ORDERED: NALOXONE INJ IV PRN (17:30)
[2018-09-25] MEDS ORDERED: HYDROMORPHONE PCA 10MG/50ML IV PRN (17:30)
[2018-09-25] MEDS ORDERED: ONDANSETRON INJ IV PRN (17:30)
[2018-09-25] MEDS ORDERED: LORAZEPAM 2MG/ML CPJ IV PRN (17:45)
[2018-09-25] MEDS ORDERED: SODIUM CHLORIDE 0.9% 1000ML BAG (SEPSIS BOLUS) IV ONE (18:00)
[2018-09-25] MEDS ORDERED: ALBUMIN HUMAN 25GM/500ML (5%) IV NR (19:00)
[2018-09-25 19:44] LABS: HEMATOCRIT 28.1 % (42.0-52.0); HEMOGLOBIN 9.3 g/dL (14.0-18.0); MEAN CORPUSCULAR HEMOGLOBIN 28.9 pg (28.0-32.0); MEAN CORPUSCULAR VOLUME 86.9 fL (80.0-94.0); PLATELET 126 x1000/uL (130-400); RED BLOOD CELL COUNT 3.24 mill/uL (4.7-6.1)
[2018-09-25] MEDS: MEROPENEM 500 MG in SODIUM CHLORIDE 0.9% 50 ML IV SCH (19:44)
[2018-09-25] MEDS: SODIUM CHLORIDE 0.9% 1,000 ML IV SCH (21:17)
[2018-09-25] MEDS: ATORVASTATIN CALCIUM 10MG TABLET PO SCH (21:50)
[2018-09-25] MEDS: METRONIDAZOLE 500 MG PREMIX 100 ML IV SCH (21:51)
[2018-09-25] MEDS: FAMOTIDINE 20MG/2ML VIAL IV SCH (21:51)
[2018-09-25] MEDS: NOREPINEPHRINE 16 MG in DEXT 5% WATER 234 ML IV PRN (22:54)
[2018-09-25] MEDS ORDERED: WATER IV PRN (23:45)
[2018-09-25] MEDS ORDERED: DEXT 5% IV PRN (23:45)
[2018-09-25] MEDS ORDERED: PHENYLEPHRINE IV PRN (23:45)
[2018-09-26] VITALS (90 sets, daily range): BP systolic 71–181; BP diastolic 24–142
[2018-09-26] MEDS: METOCLOPRAMIDE HCL 10MG/2ML VIAL IV SCH ×4 (00:10→17:41)
[2018-09-26] MEDS: BLOOD SUGAR DIAGNOSTIC STRIP TEST SCH ×4 (00:11→17:37)
[2018-09-26] MEDS: INSULIN LISPRO 100 UNITS/ML SUBCUT SCH ×4 (00:11→17:38)
[2018-09-26] MEDS ORDERED: PHENYLEPHRINE 40 MG in DEXTROSE 5% WATER 250 ML IV PRN (01:00)
[2018-09-26 06:02] LABS: CHLORIDE 108 mEq/L (98-107); HEMATOCRIT. 24.7 % (42.0-52.0); HEMOGLOBIN. 8.4 g/dL (14.0-18.0); MEAN CORPUSCULAR HEMOGLOBIN 29.2 pg (28.0-32.0); MEAN CORPUSCULAR VOLUME 86.4 fL (80.0-94.0); MEAN PLATELET VOLUME 8.7 fl (7.4-10.4); PLATELET 110 x1000/uL (130-400); RED BLOOD CELL COUNT 2.86 mill/uL (4.7-6.1)
[2018-09-26] MEDS: METRONIDAZOLE 500 MG PREMIX 100 ML IV SCH ×2 (06:13→14:05)
[2018-09-26] MEDS: GABAPENTIN 100MG CAPSULE PO SCH ×3 (06:17→21:25)
[2018-09-26] MEDS: SODIUM CHLORIDE 0.9% 1,000 ML IV SCH (06:44)
[2018-09-26 07:37] LABS: NUCLEATED RED BLOOD CELLS 1 /100 WBC
[2018-09-26 07:38] LABS: PLATELET ESTIMATE DECREASED
[2018-09-26 08:11] LABS: BG BASE EXCESS -5.3 mmol/L (-2.0-2.0); BG CARBOXYHEMOGLOBIN 0.2 % (0.5-1.5); BG DEOXYHEMOGLOBIN 1.4 % (0.0-5.0); BG FRACTION INSPIRED OXYGEN 40; BG HCO3 ACT 20.2 mmol/L (22.0-26.0); BG METHEMOGLOBIN 0.6 % (0.0-1.5); BG OXYGEN SATURATION 98.6 % (92.0-98.5); BG OXYHEMOGLOBIN 97.8 % (94.0-97.0); BG PCO2 39.3 mmHg (35.0-45.0); BG PH 7.328 (7.350-7.450); BG PO2 180.1 mmHg (75.0-100.0); BG SAMPLE SITE LEFT BRACHIAL; BG TIDAL VOLUME(mL) 500 mL; BG TOTAL HEMOGLOBIN 8.4 g/dL (12.0-18.0); BG VENT MODE VENT - A/C; BG VENT RATE 10 set
[2018-09-26] MEDS: CALCIUM ACETATE 667MG CAPSULE PO SCH ×3 (08:20→17:37)
[2018-09-26] MEDS: SEVELAMER CARBONATE 800 MG TABLET PO SCH ×3 (08:50→17:53)
[2018-09-26] MEDS: MIDODRINE HCL 5MG TABLET PO SCH ×4 (09:00→16:31)
[2018-09-26] MEDS: DOCUSATE SODIUM 250MG CAPSULE PO SCH (09:00)
[2018-09-26] MEDS: FOLIC ACID/VITAMIN B COMP W-C TABLET PO SCH ×2 (09:00→09:06)
[2018-09-26] MEDS: MORPHINE SULFATE 2 MG/ML CPJ (NOT FOR IM USE) IV PRN ×2 (10:23→16:54)
[2018-09-26] MEDS ORDERED: LEVOFLOXACIN 500MG PREMIX 100 ML IV NR (14:00)
[2018-09-26 15:05] LABS: HEMATOCRIT 22.4 % (42.0-52.0); HEMOGLOBIN 7.5 g/dL (14.0-18.0)
[2018-09-26] MEDS: HYDRALAZINE 20MG/ML VIAL IV PRN (15:12)
[2018-09-26 15:45] LABS: BG BASE EXCESS -7.1 mmol/L (-2.0-2.0); BG CARBOXYHEMOGLOBIN 0.9 % (0.5-1.5); BG DEOXYHEMOGLOBIN 2.1 % (0.0-5.0); BG FRACTION INSPIRED OXYGEN 30; BG HCO3 ACT 18.1 mmol/L (22.0-26.0); BG METHEMOGLOBIN 0.6 % (0.0-1.5); BG OXYGEN SATURATION 97.9 % (92.0-98.5); BG OXYHEMOGLOBIN 96.4 % (94.0-97.0); BG PCO2 35.2 mmHg (35.0-45.0); BG PO2 119.9 mmHg (75.0-100.0); BG PRESSURE SUPPORT 10; BG SAMPLE SITE LEFT BRACHIAL; BG TOTAL HEMOGLOBIN 7.9 g/dL (12.0-18.0); BG VENT MODE VENT - CPAP
[2018-09-26] MEDS: MEROPENEM 500 MG in SODIUM CHLORIDE 0.9% 50 ML IV SCH (17:41)
[2018-09-26 20:34] LABS: HEMATOCRIT 23.6 % (42.0-52.0); HEMOGLOBIN 8.1 g/dL (14.0-18.0)
[2018-09-26 20:39] LABS: BG BASE EXCESS -7.3 mmol/L (-2.0-2.0); BG CARBOXYHEMOGLOBIN 0.7 % (0.5-1.5); BG DEOXYHEMOGLOBIN 2.1 % (0.0-5.0); BG FRACTION INSPIRED OXYGEN 40; BG HCO3 ACT 17.6 mmol/L (22.0-26.0); BG METHEMOGLOBIN 0.5 % (0.0-1.5); BG OXYGEN SATURATION 97.9 % (92.0-98.5); BG OXYHEMOGLOBIN 96.7 % (94.0-97.0); BG PCO2 32.6 mmHg (35.0-45.0); BG PH 7.349 (7.350-7.450); BG PO2 116.6 mmHg (75.0-100.0); BG SAMPLE SITE LEFT BRACHIAL; BG TOTAL HEMOGLOBIN 8.6 g/dL (12.0-18.0); BG VENT MODE MASK - AEROSOL
[2018-09-26] MEDS: ATORVASTATIN CALCIUM 10MG TABLET PO SCH (21:00)
[2018-09-26] MEDS: FAMOTIDINE 20MG/2ML VIAL IV SCH (21:25)
[2018-09-27] VITALS (32 sets, daily range): BP systolic 102–191; BP diastolic 31–138
[2018-09-27] MEDS: BLOOD SUGAR DIAGNOSTIC STRIP TEST SCH ×5 (00:34→23:41)
[2018-09-27] MEDS: METOCLOPRAMIDE HCL 10MG/2ML VIAL IV SCH ×5 (00:38→23:40)
[2018-09-27] MEDS: SODIUM CHLORIDE 0.9% 1,000 ML IV SCH (00:39)
[2018-09-27] MEDS: MORPHINE SULFATE 2 MG/ML CPJ (NOT FOR IM USE) IV PRN ×3 (03:35→15:39)
[2018-09-27 05:42] LABS: HEMOGLOBIN 7.7 g/dL (14.0-18.0); MEAN CORPUSCULAR HEMOGLOBIN 29.1 pg (28.0-32.0); MEAN CORPUSCULAR VOLUME 86.4 fL (80.0-94.0); PLATELET 131 x1000/uL (130-400); RED BLOOD CELL COUNT 2.66 mill/uL (4.7-6.1); RED CELL DISTRIBUTION WIDTH 15.1 % (11.6-14.6)
[2018-09-27] MEDS: GABAPENTIN 100MG CAPSULE PO SCH ×2 (06:00→13:36)
[2018-09-27] MEDS: INSULIN LISPRO 100 UNITS/ML SUBCUT SCH ×5 (06:00→23:42)
[2018-09-27] MEDS: CALCIUM ACETATE 667MG CAPSULE PO SCH ×3 (08:20→17:47)
[2018-09-27 08:26] LABS: BG BASE EXCESS -8.9 mmol/L (-2.0-2.0); BG CARBOXYHEMOGLOBIN 0.8 % (0.5-1.5); BG DEOXYHEMOGLOBIN 5.6 % (0.0-5.0); BG FRACTION INSPIRED OXYGEN 24; BG HCO3 ACT 16.3 mmol/L (22.0-26.0); BG METHEMOGLOBIN 0.2 % (0.0-1.5); BG OXYGEN SATURATION 94.3 % (92.0-98.5); BG OXYHEMOGLOBIN 93.4 % (94.0-97.0); BG PCO2 32.6 mmHg (35.0-45.0); BG PH 7.318 (7.350-7.450); BG PO2 75.9 mmHg (75.0-100.0); BG SAMPLE SITE LEFT BRACHIAL; BG TOTAL HEMOGLOBIN 8.6 g/dL (12.0-18.0); BG VENT MODE NASAL CANNULA
[2018-09-27] MEDS: SEVELAMER CARBONATE 800 MG TABLET PO SCH ×3 (08:50→17:57)
[2018-09-27] MEDS: FOLIC ACID/VITAMIN B COMP W-C TABLET PO SCH (09:00)
[2018-09-27] MEDS: MIDODRINE HCL 5MG TABLET PO SCH ×2 (09:00→12:08)
[2018-09-27] MEDS: DOCUSATE SODIUM 250MG CAPSULE PO SCH (09:00)
[2018-09-27] MEDS ORDERED: METOPROLOL TARTRATE 5MG/5ML VIAL IV NR (10:45)
[2018-09-27 12:21] LABS: HEMATOCRIT 28.1 % (42.0-52.0); HEMOGLOBIN 9.7 g/dL (14.0-18.0); MEAN CORPUSCULAR HEMOGLOBIN 29.6 pg (28.0-32.0); PLATELET 154 x1000/uL (130-400); RED BLOOD CELL COUNT 3.27 mill/uL (4.7-6.1); RED CELL DISTRIBUTION WIDTH 14.9 % (11.6-14.6)
[2018-09-27] MEDS: HYDRALAZINE 20MG/ML VIAL IV PRN (13:36)
[2018-09-27] MEDS ORDERED: SODIUM BICARBONATE 50 MEQ in SODIUM CHLORIDE 0.45% 950 ML IV SCH (16:00)
[2018-09-27] MEDS: MEROPENEM 500 MG in SODIUM CHLORIDE 0.9% 50 ML IV SCH (16:19)
[2018-09-27] MEDS ORDERED: LORAZEPAM 2MG/ML CPJ IV PRN (17:45)
[2018-09-27] MEDS ORDERED: VANCOMYCIN 750 MG PREMIX 150 ML IV NR (18:00)
[2018-09-27 18:42] LABS: HEMOGLOBIN 9.4 g/dL (14.0-18.0); MEAN CORPUSCULAR HEMOGLOBIN 29.9 pg (28.0-32.0); MEAN CORPUSCULAR VOLUME 86.1 fL (80.0-94.0); PLATELET 155 x1000/uL (130-400); RED BLOOD CELL COUNT 3.14 mill/uL (4.7-6.1); RED CELL DISTRIBUTION WIDTH 15.3 % (11.6-14.6)
[2018-09-27] MEDS: FAMOTIDINE 20MG/2ML VIAL IV SCH (20:32)
[2018-09-28] VITALS (14 sets, daily range): BP systolic 90–125; BP diastolic 26–68
[2018-09-28 00:27] LABS: HEMATOCRIT 26.8 % (42.0-52.0); HEMOGLOBIN 9.2 g/dL (14.0-18.0)
[2018-09-28] MEDS: MORPHINE SULFATE 2 MG/ML CPJ (NOT FOR IM USE) IV PRN ×3 (04:22→16:51)
[2018-09-28] MEDS: METOCLOPRAMIDE HCL 10MG/2ML VIAL IV SCH ×3 (05:06→18:44)
[2018-09-28] MEDS: INSULIN LISPRO 100 UNITS/ML SUBCUT SCH ×3 (05:08→18:44)
[2018-09-28] MEDS: BLOOD SUGAR DIAGNOSTIC STRIP TEST SCH ×3 (05:08→18:38)
[2018-09-28 05:49] LABS: HEMATOCRIT 27.1 % (42.0-52.0); HEMOGLOBIN 9.3 g/dL (14.0-18.0); MEAN CORPUSCULAR HEMOGLOBIN 29.8 pg (28.0-32.0); MEAN CORPUSCULAR VOLUME 87.3 fL (80.0-94.0); PLATELET 185 x1000/uL (130-400); RED BLOOD CELL COUNT 3.11 mill/uL (4.7-6.1); RED CELL DISTRIBUTION WIDTH 15.3 % (11.6-14.6)
[2018-09-28 08:55] LABS: BG BASE EXCESS -4.2 mmol/L (-2.0-2.0); BG CARBOXYHEMOGLOBIN 0.4 % (0.5-1.5); BG DEOXYHEMOGLOBIN 4.7 % (0.0-5.0); BG FRACTION INSPIRED OXYGEN 24; BG HCO3 ACT 20.9 mmol/L (22.0-26.0); BG METHEMOGLOBIN 0.2 % (0.0-1.5); BG OXYGEN SATURATION 95.3 % (92.0-98.5); BG OXYHEMOGLOBIN 94.7 % (94.0-97.0); BG PCO2 38.4 mmHg (35.0-45.0); BG PH 7.354 (7.350-7.450); BG PO2 77.1 mmHg (75.0-100.0); BG SAMPLE SITE LEFT RADIAL; BG TOTAL HEMOGLOBIN 9.9 g/dL (12.0-18.0); BG VENT MODE NASAL CANNULA
[2018-09-28] MEDS ORDERED: POTASSIUM CHLORIDE INJ 40 MEQ in DEXT 5% WATER 250 ML IV NR (12:00)
[2018-09-28] MEDS ORDERED: SODIUM CHLORIDE 0.45% 1,000 ML IV SCH (16:00)
[2018-09-28] MEDS: MEROPENEM 500 MG in SODIUM CHLORIDE 0.9% 50 ML IV SCH (16:49)
[2018-09-28 17:18] LABS: HEMATOCRIT 24.9 % (42.0-52.0); HEMOGLOBIN 8.4 g/dL (14.0-18.0)
[2018-09-28] MEDS ORDERED: LORAZEPAM 2MG/ML CPJ IV PRN (17:45)
[2018-09-28] MEDS: ONDANSETRON HCL 4MG/2ML INJ IV PRN (21:22)
[2018-09-28] MEDS: FAMOTIDINE 20MG/2ML VIAL IV SCH (21:22)
[2018-09-29] VITALS (17 sets, daily range): BP systolic 84–133; BP diastolic 29–103
[2018-09-29] MEDS: BLOOD SUGAR DIAGNOSTIC STRIP TEST SCH ×4 (00:52→18:00)
[2018-09-29] MEDS: INSULIN LISPRO 100 UNITS/ML SUBCUT SCH ×4 (00:59→18:06)
[2018-09-29] MEDS: METOCLOPRAMIDE HCL 10MG/2ML VIAL IV SCH ×2 (01:00→05:33)
[2018-09-29] MEDS: MORPHINE SULFATE 2 MG/ML CPJ (NOT FOR IM USE) IV PRN (05:43)
[2018-09-29 07:55] LABS: CHLORIDE 104 mEq/L (98-107)
[2018-09-29 08:08] LABS: HEMATOCRIT. 28.3 % (42.0-52.0); HEMOGLOBIN. 9.5 g/dL (14.0-18.0); MEAN CORPUSCULAR HEMOGLOBIN 29.7 pg (28.0-32.0); MEAN CORPUSCULAR VOLUME 88.6 fL (80.0-94.0); MEAN PLATELET VOLUME 8.1 fl (7.4-10.4); PLATELET 238 x1000/uL (130-400); RED CELL DISTRIBUTION WIDTH 15.4 % (11.6-14.6)
[2018-09-29 08:38] LABS: PLATELET ESTIMATE NORMAL
[2018-09-29] MEDS ORDERED: LORAZEPAM 2MG/ML CPJ IV PRN (09:45)
[2018-09-29] MEDS ORDERED: POTASSIUM CHLORIDE INJ 40 MEQ in DEXT 5% WATER 250 ML IV NR (10:30)
[2018-09-29] MEDS: MEROPENEM 500 MG in SODIUM CHLORIDE 0.9% 50 ML IV SCH (18:06)
[2018-09-29] MEDS ORDERED: VANCOMYCIN 1 G PREMIX 200 ML IV NR (21:00)
[2018-09-29] MEDS: ONDANSETRON HCL 4MG/2ML INJ IV PRN (21:38)
[2018-09-29] MEDS: FAMOTIDINE 20MG/2ML VIAL IV SCH (21:38)
[2018-09-30] VITALS (13 sets, daily range): BP systolic 94–129; BP diastolic 30–79
[2018-09-30] MEDS: BLOOD SUGAR DIAGNOSTIC STRIP TEST SCH ×4 (00:47→17:42)
[2018-09-30] MEDS: INSULIN LISPRO 100 UNITS/ML SUBCUT SCH ×5 (00:59→22:20)
[2018-09-30 07:30] LABS: HEMATOCRIT 26.4 % (42.0-52.0); MEAN CORPUSCULAR HEMOGLOBIN 30.2 pg (28.0-32.0); MEAN CORPUSCULAR VOLUME 88.3 fL (80.0-94.0); PLATELET 239 x1000/uL (130-400); RED BLOOD CELL COUNT 2.99 mill/uL (4.7-6.1); RED CELL DISTRIBUTION WIDTH 15.4 % (11.6-14.6)
[2018-09-30] MEDS: MORPHINE SULFATE 2 MG/ML CPJ (NOT FOR IM USE) IV PRN ×3 (11:00→22:11)
[2018-09-30] MEDS ORDERED: POTASSIUM CHLORIDE INJ 40 MEQ in DEXT 5% WATER 250 ML IV NR (12:00)
[2018-09-30] MEDS: MEROPENEM 500 MG in SODIUM CHLORIDE 0.9% 50 ML IV SCH (17:42)
[2018-09-30] MEDS: FAMOTIDINE 20MG/2ML VIAL IV SCH (22:07)
[2018-10-01] VITALS (7 sets, daily range): BP systolic 105–123; BP diastolic 16–71
[2018-10-01] MEDS: BLOOD SUGAR DIAGNOSTIC STRIP TEST SCH ×3 (00:53→12:19)
[2018-10-01] MEDS: INSULIN LISPRO 100 UNITS/ML SUBCUT SCH ×2 (07:26→12:00)
[2018-10-01 07:34] LABS: HEMATOCRIT. 29.1 % (42.0-52.0); HEMOGLOBIN. 9.7 g/dL (14.0-18.0); MEAN CORPUSCULAR HEMOGLOBIN 30.2 pg (28.0-32.0); MEAN CORPUSCULAR VOLUME 90.2 fL (80.0-94.0); MEAN PLATELET VOLUME 8.3 fl (7.4-10.4); PLATELET 263 x1000/uL (130-400); RED BLOOD CELL COUNT 3.22 mill/uL (4.7-6.1); RED CELL DISTRIBUTION WIDTH 16.1 % (11.6-14.6)
[2018-10-02 13:36] LABS: PLATELET ESTIMATE NORMAL
== END 2018-10-01 11:50 | DRG 329 ==
LOC: ER 15:46 → 8WST 17:39 → EDBEDREQTM 18:00 → EDBEDREQ 18:00 → ENRESERV 22:11 → CVICU 09-21 18:29 → 3WST 09-24 11:00 → CVICU 09-24 18:55 → 5EST 09-27 19:02
PROVIDERS: ADMIT Internal Medicine; ATTEND Internal Medicine
PROC: 0JBQ0ZZ Excision of Right Foot Subcutaneous Tissue and Fascia, Open Approach (ICD-10-PCS; 2018-09-21)
PROC: 30233K1 Transfusion of Nonautologous Frozen Plasma into Peripheral Vein, Percutaneous Approach (ICD-10-PCS; 2018-09-21)
PROC: 30233N1 Transfusion of Nonautologous Red Blood Cells into Peripheral Vein, Percutaneous Approach (ICD-10-PCS; 2018-09-21)
PROC: 02HV33Z Insertion of Infusion Device into Superior Vena Cava, Percutaneous Approach (ICD-10-PCS; 2018-09-21)
PROC: B5181ZA Fluoroscopy of Superior Vena Cava using Low Osmolar Contrast, Guidance (ICD-10-PCS; 2018-09-21)
PROC: B548ZZA Ultrasonography of Superior Vena Cava, Guidance (ICD-10-PCS; 2018-09-21)
PROC: 0DTF0ZZ Resection of Right Large Intestine, Open Approach (ICD-10-PCS; 2018-09-25)
PROC: 5A1D70Z Performance of Urinary Filtration, Intermittent, Less than 6 Hours Per Day (ICD-10-PCS; 2018-09-25)
PROC: 0W9G3ZZ Drainage of Peritoneal Cavity, Percutaneous Approach (ICD-10-PCS; 2018-09-25)
PROC: 0QBQ0ZZ Excision of Right Toe Phalanx, Open Approach (ICD-10-PCS; principal; 2018-10-01)
PROC: 5A1D70Z Performance of Urinary Filtration, Intermittent, Less than 6 Hours Per Day (ICD-10-PCS; 2018-10-01)
DX: K63.3 Ulcer of intestine (principal); I50.23 Acute on chronic systolic (congestive) heart failure; J95.821 Acute postprocedural respiratory failure; E43 Unspecified severe protein-calorie malnutrition; N18.6 End stage renal disease; L02.611 Cutaneous abscess of right foot; E10.52 Type 1 diabetes mellitus with diabetic peripheral angiopathy with gangrene; M86.171 Other acute osteomyelitis, right ankle and foot; E87.1 Hypo-osmolality and hyponatremia; I13.2 Hypertensive heart and chronic kidney disease with heart failure and with stage 5 chronic kidney disease, or end stage renal disease; D62 Acute posthemorrhagic anemia; K52.1 Toxic gastroenteritis and colitis; K55.9 Vascular disorder of intestine, unspecified; K92.2 Gastrointestinal hemorrhage, unspecified; E10.69 Type 1 diabetes mellitus with other specified complication; E10.621 Type 1 diabetes mellitus with foot ulcer; E10.622 Type 1 diabetes mellitus with other skin ulcer; L97.519 Non-pressure chronic ulcer of other part of right foot with unspecified severity; B95.2 Enterococcus as the cause of diseases classified elsewhere; D63.1 Anemia in chronic kidney disease; E10.22 Type 1 diabetes mellitus with diabetic chronic kidney disease; E10.40 Type 1 diabetes mellitus with diabetic neuropathy, unspecified; E10.65 Type 1 diabetes mellitus with hyperglycemia; E83.39 Other disorders of phosphorus metabolism; F17.210 Nicotine dependence, cigarettes, uncomplicated; I45.81 Long QT syndrome; T45.0X5A Adverse effect of antiallergic and antiemetic drugs, initial encounter; Z89.512 Acquired absence of left leg below knee; Z91.19 Patient's noncompliance with other medical treatment and regimen; Z99.2 Dependence on renal dialysis; Z79.4 Long term (current) use of insulin; Z82.49 Family history of ischemic heart disease and other diseases of the circulatory system; Z79.899 Other long term (current) drug therapy; Y92.89 Other specified places as the place of occurrence of the external cause
CPT/HCPCS: 36415; 36569; 36573; 36600; 71045; 73630; 73721; 74018; 78278; 80048; 80061; 80202; 80307; 82270; 82375; 82533; 82805; 82962; 83036; 83880; 84100; 84439; 84443; 84484; 85014; 85018; 85027; 85379; 85384; 86850; 86900; 86920; 86927; 87070; 87077; 87186; 88309; 88329; 93005; 93306; 93922; 93970; 94002; 94003; 97162; 99285; A6261; A9560; C1725; C1769; C9113; J0330; J0360; J1644; J1815; J1956; J2060; J2185; J2250; J2270; J2370; J2405; J2543; J2704; J2710; J2765; J3010; J3370; J3480; J3490; J7030; J7040; J7050; J7060; P9016; P9017; P9041

== ENCOUNTER 2021-10-24 16:39 | Inpatient (IN) | payer MEDICARE, MEDICAID ==
[~2021-10-24] VITALS: Ht 172.7 cm; Wt 59.5 kg
[2021-10-24] MEDS ORDERED: ACETAMINOPHEN 325MG TABLET PO ONE (17:30)
[2021-10-24 17:48] LABS: BASOPHILS % 0.4 % (0.0-2.0); EOSINOPHILS % 2.3 % (0.0-5.0); HEMATOCRIT. 30.5 % (42.0-52.0); LYMPHOCYTES % 21.8 % (20.0-50.0); MEAN CORPUSCULAR HEMOGLOBIN 32.8 pg (28.0-32.0); MEAN CORPUSCULAR VOLUME 99.8 fL (80.0-94.0); MEAN PLATELET VOLUME 7.9 fl (7.4-10.4); MONOCYTES % 13.2 % (2.0-8.0); NEUTROPHILS % 62.3 % (40.0-76.0); PLATELET 355 x1000/uL (130-400); RED BLOOD CELL COUNT 3.06 mill/uL (4.7-6.1)
[2021-10-24 17:55] LABS: CHLORIDE 95 mEq/L (98-107)
[2021-10-24 23:21] VITALS: BP 118/68
[2021-10-25] MEDS ORDERED: DEXTROSE 50% WATER 50ML SYRINGE IV PRN (00:45)
[2021-10-25] MEDS ORDERED: KETOROLAC 30MG/ML VIAL IV PRN (00:45)
[2021-10-25] MEDS: HYDROCODONE/ACETAMINOPHEN 5/325MG TABLET PO PRN ×3 (01:21→19:18)
[2021-10-25 04:00] VITALS: BP 107/63
[2021-10-25] MEDS: GABAPENTIN 100MG CAPSULE PO SCH ×3 (06:13→21:14)
[2021-10-25 07:11] LABS: BASOPHILS % 0.5 % (0.0-2.0); EOSINOPHILS % 2.3 % (0.0-5.0); HEMATOCRIT. 31.5 % (42.0-52.0); HEMOGLOBIN. 10.3 g/dL (14.0-18.0); LYMPHOCYTES % 20.7 % (20.0-50.0); MEAN CORPUSCULAR HEMOGLOBIN 32.5 pg (28.0-32.0); MEAN CORPUSCULAR VOLUME 99.1 fL (80.0-94.0); MONOCYTES % 14.4 % (2.0-8.0); NEUTROPHILS % 62.1 % (40.0-76.0); PLATELET 366 x1000/uL (130-400); RED BLOOD CELL COUNT 3.18 mill/uL (4.7-6.1); RED CELL DISTRIBUTION WIDTH 13.8 % (11.6-14.6)
[2021-10-25] MEDS: BLOOD SUGAR DIAGNOSTIC STRIP TEST SCH ×4 (07:43→21:09)
[2021-10-25] MEDS: INSULIN LISPRO 100 UNITS/ML SUBCUT SCH ×3 (07:43→21:00)
[2021-10-25] MEDS: HEPARIN 5000 UNITS/ML VIAL SUBCUT SCH ×2 (08:51→21:14)
[2021-10-25] MEDS ORDERED: NALOXONE HCL 0.4MG/ML VIAL IV PRN (10:00)
[2021-10-25 11:54] LABS: HEPATITIS B SURFACE ANTIGEN NEGATIVE
[2021-10-25] MEDS: SEVELAMER CARBONATE 800 MG TABLET PO SCH ×2 (14:11→19:16)
[2021-10-25] MEDS: LOSARTAN POTASSIUM 50 MG TABLET PO SCH ×2 (14:11→17:35)
[2021-10-25] MEDS: FLUCONAZOLE 200 MG/100ML BAG 100 MG in CONTAINER,EMPTY 0 BAG IV SCH (17:35)
[2021-10-26] VITALS: BP 103/58
[2021-10-26 04:00] VITALS: BP 101/64
[2021-10-26] MEDS: HYDROCODONE/ACETAMINOPHEN 5/325MG TABLET PO PRN ×2 (04:38→13:31)
[2021-10-26] MEDS: BLOOD SUGAR DIAGNOSTIC STRIP TEST SCH ×4 (05:48→21:00)
[2021-10-26] MEDS: GABAPENTIN 100MG CAPSULE PO SCH ×3 (05:48→23:03)
[2021-10-26 08:00] VITALS: BP 93/53
[2021-10-26] MEDS: SEVELAMER CARBONATE 800 MG TABLET PO SCH ×3 (09:18→18:26)
[2021-10-26] MEDS: HEPARIN 5000 UNITS/ML VIAL SUBCUT SCH ×2 (09:18→23:05)
[2021-10-26] MEDS: LOSARTAN POTASSIUM 50 MG TABLET PO SCH ×2 (09:19→18:27)
[2021-10-26] MEDS: ACETAMINOPHEN 325MG TABLET PO PRN (09:38)
[2021-10-26] MEDS: INSULIN LISPRO 100 UNITS/ML SUBCUT SCH ×4 (09:47→23:06)
[2021-10-26 12:00] VITALS: BP 102/62
[2021-10-26] MEDS: FLUCONAZOLE 200 MG/100ML BAG 100 MG in CONTAINER,EMPTY 0 BAG IV SCH (13:53)
[2021-10-26 16:00] VITALS: BP 93/56
[2021-10-26 20:00] VITALS: BP 101/56
[2021-10-27] VITALS: BP 117/65
[2021-10-27 04:00] VITALS: BP 109/59
[2021-10-27] MEDS: HYDROCODONE/ACETAMINOPHEN 5/325MG TABLET PO PRN (04:52)
[2021-10-27] MEDS: GABAPENTIN 100MG CAPSULE PO SCH ×3 (06:39→21:53)
[2021-10-27] MEDS: INSULIN LISPRO 100 UNITS/ML SUBCUT SCH ×4 (07:50→21:00)
[2021-10-27 08:00] VITALS: BP 91/52
[2021-10-27] MEDS: BLOOD SUGAR DIAGNOSTIC STRIP TEST SCH ×4 (08:04→21:53)
[2021-10-27] MEDS: HEPARIN 5000 UNITS/ML VIAL SUBCUT SCH ×2 (09:07→21:52)
[2021-10-27] MEDS: SEVELAMER CARBONATE 800 MG TABLET PO SCH ×3 (09:07→18:27)
[2021-10-27] MEDS: LOSARTAN POTASSIUM 50 MG TABLET PO SCH ×2 (09:07→18:27)
[2021-10-27 12:00] VITALS: BP 96/57
[2021-10-27 16:00] VITALS: BP 114/52
[2021-10-27] MEDS: FLUCONAZOLE 200 MG/100ML BAG 100 MG in CONTAINER,EMPTY 0 BAG IV SCH (16:18)
[2021-10-27 20:00] VITALS: BP 111/66
[2021-10-27] MEDS: EPOETIN ALFA-EPBX 4,000 UNIT/ML VIAL SUBCUT SCH (21:00)
[2021-10-28] VITALS: BP 115/70
[2021-10-28 04:00] VITALS: BP 118/74
[2021-10-28] MEDS: GABAPENTIN 100MG CAPSULE PO SCH ×3 (05:47→21:48)
[2021-10-28] MEDS: BLOOD SUGAR DIAGNOSTIC STRIP TEST SCH ×4 (05:47→21:00)
[2021-10-28] MEDS: EPOETIN ALFA-EPBX 4,000 UNIT/ML VIAL SUBCUT SCH (05:47)
[2021-10-28] MEDS: INSULIN LISPRO 100 UNITS/ML SUBCUT SCH ×3 (05:52→17:50)
[2021-10-28 08:00] VITALS: BP 107/60
[2021-10-28] MEDS: HEPARIN 5000 UNITS/ML VIAL SUBCUT SCH ×2 (08:57→21:48)
[2021-10-28] MEDS: LOSARTAN POTASSIUM 50 MG TABLET PO SCH ×2 (08:57→18:25)
[2021-10-28] MEDS: HYDROCODONE/ACETAMINOPHEN 5/325MG TABLET PO PRN (08:57)
[2021-10-28] MEDS: SEVELAMER CARBONATE 800 MG TABLET PO SCH ×3 (08:58→18:25)
[2021-10-28 12:00] VITALS: BP 93/55
[2021-10-28] MEDS: FLUCONAZOLE 100MG TABLET PO SCH (15:15)
[2021-10-28 16:00] VITALS: BP 123/72
[2021-10-28 20:00] VITALS: BP 121/67
[2021-10-29] VITALS: BP 124/60
[2021-10-29] MEDS: HYDROCODONE/ACETAMINOPHEN 5/325MG TABLET PO PRN ×2 (02:29→09:30)
[2021-10-29] MEDS: INSULIN LISPRO 100 UNITS/ML SUBCUT SCH ×5 (02:33→21:00)
[2021-10-29 04:00] VITALS: BP 126/62
[2021-10-29] MEDS: GABAPENTIN 100MG CAPSULE PO SCH ×3 (06:00→21:25)
[2021-10-29 08:00] VITALS: BP 113/64
[2021-10-29] MEDS: BLOOD SUGAR DIAGNOSTIC STRIP TEST SCH ×4 (08:13→21:16)
[2021-10-29] MEDS: SEVELAMER CARBONATE 800 MG TABLET PO SCH ×3 (09:28→18:03)
[2021-10-29] MEDS: LOSARTAN POTASSIUM 50 MG TABLET PO SCH ×2 (09:28→17:00)
[2021-10-29] MEDS: HEPARIN 5000 UNITS/ML VIAL SUBCUT SCH ×2 (09:29→21:15)
[2021-10-29 12:00] VITALS: BP 130/65
[2021-10-29] MEDS: FLUCONAZOLE 100MG TABLET PO SCH (13:21)
[2021-10-29 16:00] VITALS: BP 107/51
[2021-10-29 20:00] VITALS: BP 103/56
[2021-10-29] MEDS: EPOETIN ALFA-EPBX 4,000 UNIT/ML VIAL SUBCUT SCH (21:16)
[2021-10-30] VITALS: BP 105/67
[2021-10-30 04:00] VITALS: BP 124/64
[2021-10-30] MEDS: GABAPENTIN 100MG CAPSULE PO SCH ×3 (06:14→21:09)
[2021-10-30] MEDS: ACETAMINOPHEN 325MG TABLET PO PRN ×2 (06:18→16:32)
[2021-10-30] MEDS: BLOOD SUGAR DIAGNOSTIC STRIP TEST SCH ×4 (07:20→21:18)
[2021-10-30] MEDS: INSULIN LISPRO 100 UNITS/ML SUBCUT SCH ×4 (07:50→21:21)
[2021-10-30 08:00] VITALS: BP 105/52
[2021-10-30] MEDS: LOSARTAN POTASSIUM 50 MG TABLET PO SCH ×2 (09:00→18:57)
[2021-10-30] MEDS: HEPARIN 5000 UNITS/ML VIAL SUBCUT SCH ×2 (09:52→21:11)
[2021-10-30] MEDS: SEVELAMER CARBONATE 800 MG TABLET PO SCH ×3 (09:52→18:56)
[2021-10-30] MEDS: HYDROCODONE/ACETAMINOPHEN 5/325MG TABLET PO PRN (10:07)
[2021-10-30 10:46] LABS: HEMATOCRIT. 26.9 % (42.0-52.0); HEMOGLOBIN. 8.6 g/dL (14.0-18.0); MEAN CORPUSCULAR HEMOGLOBIN 31.9 pg (28.0-32.0); MEAN CORPUSCULAR VOLUME 100.4 fL (80.0-94.0); MEAN PLATELET VOLUME 8.1 fl (7.4-10.4); PLATELET 291 x1000/uL (130-400); RED BLOOD CELL COUNT 2.68 mill/uL (4.7-6.1); RED CELL DISTRIBUTION WIDTH 13.5 % (11.6-14.6)
[2021-10-30 12:00] VITALS: BP 109/59
[2021-10-30] MEDS: FLUCONAZOLE 100MG TABLET PO SCH (13:42)
[2021-10-30 13:56] LABS: PLATELET ESTIMATE NORMAL
[2021-10-30 16:00] VITALS: BP 119/76
[2021-10-30] MEDS: VANCOMYCIN 1000MG/20ML ORAL SOLN PO SCH ×2 (18:57→23:45)
[2021-10-30 20:00] VITALS: BP 109/63
[2021-10-31] VITALS: BP 116/65
[2021-10-31 04:00] VITALS: BP 120/62
[2021-10-31] MEDS: HYDROCODONE/ACETAMINOPHEN 5/325MG TABLET PO PRN ×2 (04:23→18:31)
[2021-10-31] MEDS: ACETAMINOPHEN 325MG TABLET PO PRN (04:24)
[2021-10-31] MEDS: GABAPENTIN 100MG CAPSULE PO SCH ×3 (05:12→20:49)
[2021-10-31] MEDS: VANCOMYCIN 1000MG/20ML ORAL SOLN PO SCH ×4 (05:13→23:23)
[2021-10-31 06:46] LABS: HEMATOCRIT. 26.7 % (42.0-52.0); HEMOGLOBIN. 8.6 g/dL (14.0-18.0); MEAN CORPUSCULAR HEMOGLOBIN 32.2 pg (28.0-32.0); MEAN PLATELET VOLUME 8.1 fl (7.4-10.4); PLATELET 293 x1000/uL (130-400); RED BLOOD CELL COUNT 2.67 mill/uL (4.7-6.1)
[2021-10-31] MEDS: INSULIN LISPRO 100 UNITS/ML SUBCUT SCH ×4 (07:39→21:50)
[2021-10-31] MEDS: BLOOD SUGAR DIAGNOSTIC STRIP TEST SCH ×4 (07:39→21:40)
[2021-10-31 08:00] VITALS: BP 104/58
[2021-10-31] MEDS: LOSARTAN POTASSIUM 50 MG TABLET PO SCH ×2 (08:43→17:00)
[2021-10-31] MEDS: SEVELAMER CARBONATE 800 MG TABLET PO SCH ×3 (08:51→18:32)
[2021-10-31] MEDS: HEPARIN 5000 UNITS/ML VIAL SUBCUT SCH ×2 (08:52→20:49)
[2021-10-31 12:00] VITALS: BP 114/62
[2021-10-31 14:18] LABS: PLATELET ESTIMATE NORMAL
[2021-10-31 16:00] VITALS: BP 107/60
[2021-10-31 20:00] VITALS: BP 112/62
[2021-10-31] MEDS ORDERED: NALOXONE HCL 0.4MG/ML VIAL IV PRN (20:45)
[2021-11-01] VITALS: BP_SYST 112; BP_SYST 118; BP_DIAS 62; BP_DIAS 69
[2021-11-01 04:00] VITALS: BP 118/69
[2021-11-01] MEDS: ACETAMINOPHEN 325MG TABLET PO PRN ×2 (05:12→14:32)
[2021-11-01] MEDS: GABAPENTIN 100MG CAPSULE PO SCH ×3 (05:12→21:01)
[2021-11-01] MEDS: VANCOMYCIN 1000MG/20ML ORAL SOLN PO SCH ×4 (05:13→23:59)
[2021-11-01 07:12] LABS: BASOPHILS % 0.4 % (0.0-2.0); EOSINOPHILS % 0.8 % (0.0-5.0); HEMATOCRIT. 26.6 % (42.0-52.0); HEMOGLOBIN. 8.6 g/dL (14.0-18.0); LYMPHOCYTES % 18.7 % (20.0-50.0); MEAN CORPUSCULAR HEMOGLOBIN 32.2 pg (28.0-32.0); MEAN CORPUSCULAR VOLUME 99.5 fL (80.0-94.0); MEAN PLATELET VOLUME 8.6 fl (7.4-10.4); MONOCYTES % 13.7 % (2.0-8.0); NEUTROPHILS % 66.4 % (40.0-76.0); PLATELET 298 x1000/uL (130-400); RED BLOOD CELL COUNT 2.67 mill/uL (4.7-6.1); RED CELL DISTRIBUTION WIDTH 13.2 % (11.6-14.6)
[2021-11-01] MEDS: INSULIN LISPRO 100 UNITS/ML SUBCUT SCH ×4 (07:44→21:00)
[2021-11-01] MEDS: BLOOD SUGAR DIAGNOSTIC STRIP TEST SCH ×4 (07:44→21:12)
[2021-11-01] MEDS: SEVELAMER CARBONATE 800 MG TABLET PO SCH ×3 (08:54→17:36)
[2021-11-01] MEDS: HYDROCODONE/ACETAMINOPHEN 5/325MG TABLET PO PRN ×2 (08:54→21:11)
[2021-11-01] MEDS: HEPARIN 5000 UNITS/ML VIAL SUBCUT SCH ×2 (08:55→20:57)
[2021-11-01] MEDS: LOSARTAN POTASSIUM 50 MG TABLET PO SCH ×2 (08:55→17:00)
[2021-11-01] MEDS ORDERED: ACETAMINOPHEN 325MG TABLET PO NR (16:45)
[2021-11-01 20:00] VITALS: BP 121/65
[2021-11-01] MEDS: METRONIDAZOLE 500MG TABLET PO SCH (20:56)
[2021-11-01] MEDS: EPOETIN ALFA-EPBX 4,000 UNIT/ML VIAL SUBCUT SCH (20:57)
[2021-11-02] MEDS: GABAPENTIN 100MG CAPSULE PO SCH ×3 (05:53→21:02)
[2021-11-02] MEDS: VANCOMYCIN 1000MG/20ML ORAL SOLN PO SCH ×3 (05:54→17:17)
[2021-11-02] MEDS: BLOOD SUGAR DIAGNOSTIC STRIP TEST SCH ×4 (07:20→21:01)
[2021-11-02] MEDS: INSULIN LISPRO 100 UNITS/ML SUBCUT SCH ×4 (07:50→20:55)
[2021-11-02 08:00] VITALS: BP 116/64
[2021-11-02] MEDS: SEVELAMER CARBONATE 800 MG TABLET PO SCH ×3 (08:45→17:20)
[2021-11-02] MEDS: HEPARIN 5000 UNITS/ML VIAL SUBCUT SCH ×2 (08:46→20:54)
[2021-11-02] MEDS: METRONIDAZOLE 500MG TABLET PO SCH ×2 (08:46→20:55)
[2021-11-02] MEDS: ACETAMINOPHEN 325MG TABLET PO PRN (08:52)
[2021-11-02] MEDS: LOSARTAN POTASSIUM 50 MG TABLET PO SCH ×2 (08:53→17:00)
[2021-11-02 12:00] VITALS: BP 107/59
[2021-11-02 16:00] VITALS: BP 127/71
[2021-11-02 20:00] VITALS: BP 123/76
[2021-11-03] VITALS: BP 117/66
[2021-11-03] MEDS: VANCOMYCIN 1000MG/20ML ORAL SOLN PO SCH ×4 (00:09→20:48)
[2021-11-03] MEDS: GABAPENTIN 100MG CAPSULE PO SCH ×3 (05:41→21:13)
[2021-11-03] MEDS: INSULIN LISPRO 100 UNITS/ML SUBCUT SCH ×4 (07:50→21:24)
[2021-11-03 08:00] VITALS: BP 119/65
[2021-11-03] MEDS: BLOOD SUGAR DIAGNOSTIC STRIP TEST SCH ×4 (08:05→21:11)
[2021-11-03] MEDS: SEVELAMER CARBONATE 800 MG TABLET PO SCH ×3 (08:20→20:47)
[2021-11-03] MEDS: LOSARTAN POTASSIUM 50 MG TABLET PO SCH ×2 (09:32→17:00)
[2021-11-03] MEDS: METRONIDAZOLE 500MG TABLET PO SCH ×2 (09:32→21:02)
[2021-11-03] MEDS: HEPARIN 5000 UNITS/ML VIAL SUBCUT SCH ×2 (09:32→21:02)
[2021-11-03 12:00] VITALS: BP 134/73
[2021-11-03] MEDS: ACETAMINOPHEN 325MG TABLET PO PRN (13:09)
[2021-11-03] MEDS: HYDROCODONE/ACETAMINOPHEN 5/325MG TABLET PO PRN ×4 (13:18→21:25)
[2021-11-03 16:00] VITALS: BP 128/69
[2021-11-03] MEDS: EPOETIN ALFA-EPBX 10,000 UNIT/ML VIAL SUBCUT SCH (21:12)
[2021-11-04] MEDS: CLONIDINE 0.2MG TABLET PO SCH ×2 (00:30→00:40)
[2021-11-04] MEDS ORDERED: CLONIDINE 0.2MG TABLET PO PRN (00:30)
[2021-11-04] MEDS: ACETAMINOPHEN 325MG TABLET PO PRN ×3 (00:39→18:55)
[2021-11-04] MEDS: VANCOMYCIN 1000MG/20ML ORAL SOLN PO SCH ×4 (00:40→18:50)
[2021-11-04 03:21] VITALS: BP 106/58
[2021-11-04 03:23] VITALS: BP 108/69
[2021-11-04] MEDS: GABAPENTIN 100MG CAPSULE PO SCH ×3 (05:06→22:28)
[2021-11-04] MEDS: HYDROCODONE/ACETAMINOPHEN 5/325MG TABLET PO PRN (05:07)
[2021-11-04] MEDS: BLOOD SUGAR DIAGNOSTIC STRIP TEST SCH ×4 (05:56→21:00)
[2021-11-04] MEDS: INSULIN LISPRO 100 UNITS/ML SUBCUT SCH ×4 (05:57→22:45)
[2021-11-04 08:00] VITALS: BP 115/57
[2021-11-04] MEDS: SEVELAMER CARBONATE 800 MG TABLET PO SCH ×3 (10:19→18:51)
[2021-11-04] MEDS: LOSARTAN POTASSIUM 50 MG TABLET PO SCH ×2 (10:19→18:51)
[2021-11-04] MEDS: METRONIDAZOLE 500MG TABLET PO SCH ×2 (10:19→22:28)
[2021-11-04] MEDS: HEPARIN 5000 UNITS/ML VIAL SUBCUT SCH ×2 (10:20→22:28)
[2021-11-04 10:56] LABS: BASOPHILS % 0.5 % (0.0-2.0); HEMOGLOBIN. 7.8 g/dL (14.0-18.0); LYMPHOCYTES % 12.8 % (20.0-50.0); MEAN CORPUSCULAR HEMOGLOBIN 32.8 pg (28.0-32.0); MEAN CORPUSCULAR VOLUME 100.8 fL (80.0-94.0); MEAN PLATELET VOLUME 8.2 fl (7.4-10.4); MONOCYTES % 14.2 % (2.0-8.0); NEUTROPHILS % 71.5 % (40.0-76.0); PLATELET 345 x1000/uL (130-400); RED BLOOD CELL COUNT 2.38 mill/uL (4.7-6.1); RED CELL DISTRIBUTION WIDTH 13.4 % (11.6-14.6)
[2021-11-04 12:00] VITALS: BP 115/63
[2021-11-04 15:15] LABS: INR 1.2; PROTHROMBIN TIME 12.3 sec (9.6-11.0)
[2021-11-04 15:43] LABS: TOTAL IRON BINDING CAPACITY 113 ug/dL (250-450)
[2021-11-04 16:00] VITALS: BP 121/66
[2021-11-04 16:07] LABS: FOLIC ACID (FOLATE) SERUM 15.7 ng/mL (>5.38)
[2021-11-04] MEDS ORDERED: CEFTRIAXONE 1 G PREMIX 50 ML IV SCH (16:15)
[2021-11-04] MEDS: CEFTRIAXONE 1,000 MG in DEXTROSE 5% WATER 50 ML IV SCH (18:50)
[2021-11-04 20:00] VITALS: BP 116/56
[2021-11-05] VITALS: BP 133/74
[2021-11-05 04:00] VITALS: BP 121/67
[2021-11-05] MEDS: GABAPENTIN 100MG CAPSULE PO SCH ×3 (06:10→21:44)
[2021-11-05] MEDS: BLOOD SUGAR DIAGNOSTIC STRIP TEST SCH ×4 (06:28→21:44)
[2021-11-05 06:42] LABS: BASOPHILS % 0.5 % (0.0-2.0); EOSINOPHILS % 1.6 % (0.0-5.0); HEMATOCRIT. 23.7 % (42.0-52.0); HEMOGLOBIN. 7.6 g/dL (14.0-18.0); LYMPHOCYTES % 15.8 % (20.0-50.0); MEAN CORPUSCULAR HEMOGLOBIN 32.3 pg (28.0-32.0); MEAN CORPUSCULAR VOLUME 100.4 fL (80.0-94.0); MEAN PLATELET VOLUME 8.4 fl (7.4-10.4); MONOCYTES % 14.8 % (2.0-8.0); NEUTROPHILS % 67.3 % (40.0-76.0); PLATELET 371 x1000/uL (130-400); RED BLOOD CELL COUNT 2.36 mill/uL (4.7-6.1); RED CELL DISTRIBUTION WIDTH 13.3 % (11.6-14.6)
[2021-11-05] MEDS: INSULIN LISPRO 100 UNITS/ML SUBCUT SCH ×4 (06:54→21:45)
[2021-11-05 08:00] VITALS: BP 119/63
[2021-11-05] MEDS: SEVELAMER CARBONATE 800 MG TABLET PO SCH ×3 (09:17→18:30)
[2021-11-05] MEDS: LOSARTAN POTASSIUM 50 MG TABLET PO SCH ×2 (09:18→18:04)
[2021-11-05] MEDS: METRONIDAZOLE 500MG TABLET PO SCH ×2 (09:18→21:43)
[2021-11-05] MEDS: HEPARIN 5000 UNITS/ML VIAL SUBCUT SCH ×2 (09:18→21:43)
[2021-11-05 12:00] VITALS: BP 117/69
[2021-11-05] MEDS: VANCOMYCIN 1000MG/20ML ORAL SOLN PO SCH ×3 (12:08→23:21)
[2021-11-05 16:00] VITALS: BP 113/62
[2021-11-05] MEDS: CEFTRIAXONE 1,000 MG in DEXTROSE 5% WATER 50 ML IV SCH (18:04)
[2021-11-05 20:00] VITALS: BP 120/64
[2021-11-05] MEDS: EPOETIN ALFA-EPBX 10,000 UNIT/ML VIAL SUBCUT SCH (21:44)
[2021-11-06] VITALS: BP 110/59
[2021-11-06 04:00] VITALS: BP 106/58
[2021-11-06] MEDS: VANCOMYCIN 1000MG/20ML ORAL SOLN PO SCH ×4 (06:01→23:14)
[2021-11-06] MEDS: GABAPENTIN 100MG CAPSULE PO SCH ×3 (06:02→20:56)
[2021-11-06] MEDS: BLOOD SUGAR DIAGNOSTIC STRIP TEST SCH ×4 (06:38→20:57)
[2021-11-06] MEDS: INSULIN LISPRO 100 UNITS/ML SUBCUT SCH ×4 (06:51→20:51)
[2021-11-06 08:00] VITALS: BP 105/60
[2021-11-06 08:00] LABS: HEMOGLOBIN. 7.7 g/dL (14.0-18.0); MEAN CORPUSCULAR HEMOGLOBIN 32.1 pg (28.0-32.0); MEAN CORPUSCULAR VOLUME 99.9 fL (80.0-94.0); MEAN PLATELET VOLUME 8.6 fl (7.4-10.4); PLATELET 404 x1000/uL (130-400)
[2021-11-06] MEDS: METRONIDAZOLE 500MG TABLET PO SCH ×2 (09:49→20:56)
[2021-11-06] MEDS: LOSARTAN POTASSIUM 50 MG TABLET PO SCH ×2 (09:49→16:59)
[2021-11-06] MEDS: HEPARIN 5000 UNITS/ML VIAL SUBCUT SCH ×2 (09:49→20:55)
[2021-11-06] MEDS: SEVELAMER CARBONATE 800 MG TABLET PO SCH ×3 (09:53→16:59)
[2021-11-06 12:00] VITALS: BP 116/68
[2021-11-06 14:51] LABS: PLATELET ESTIMATE SLIGHTLY INCREASED
[2021-11-06 16:00] VITALS: BP 114/64
[2021-11-06] MEDS: CEFTRIAXONE 1,000 MG in DEXTROSE 5% WATER 50 ML IV SCH (16:58)
[2021-11-06 20:00] VITALS: BP 98/52
[2021-11-06] MEDS: ACETAMINOPHEN 325MG TABLET PO PRN (21:11)
[2021-11-07] VITALS: BP 114/63
[2021-11-07 04:00] VITALS: BP 88/45
[2021-11-07] MEDS: GABAPENTIN 100MG CAPSULE PO SCH (05:23)
[2021-11-07] MEDS: VANCOMYCIN 1000MG/20ML ORAL SOLN PO SCH ×2 (05:24→11:26)
[2021-11-07 06:38] LABS: BASOPHILS % 0.5 % (0.0-2.0); EOSINOPHILS % 1.7 % (0.0-5.0); HEMOGLOBIN. 8.4 g/dL (14.0-18.0); LYMPHOCYTES % 18.9 % (20.0-50.0); MEAN CORPUSCULAR HEMOGLOBIN 32.4 pg (28.0-32.0); MEAN CORPUSCULAR VOLUME 100.6 fL (80.0-94.0); MONOCYTES % 14.2 % (2.0-8.0); NEUTROPHILS % 64.7 % (40.0-76.0); PLATELET 397 x1000/uL (130-400); RED BLOOD CELL COUNT 2.58 mill/uL (4.7-6.1); RED CELL DISTRIBUTION WIDTH 13.3 % (11.6-14.6)
[2021-11-07] MEDS: BLOOD SUGAR DIAGNOSTIC STRIP TEST SCH ×2 (07:16→11:27)
[2021-11-07 08:00] VITALS: BP 111/65
[2021-11-07] MEDS: SEVELAMER CARBONATE 800 MG TABLET PO SCH (08:32)
[2021-11-07] MEDS: ACETAMINOPHEN 325MG TABLET PO PRN (08:32)
[2021-11-07] MEDS: HEPARIN 5000 UNITS/ML VIAL SUBCUT SCH (08:33)
[2021-11-07] MEDS: METRONIDAZOLE 500MG TABLET PO SCH (08:33)
[2021-11-07] MEDS: LOSARTAN POTASSIUM 50 MG TABLET PO SCH (08:33)
[2021-11-07] MEDS: INSULIN LISPRO 100 UNITS/ML SUBCUT SCH ×2 (08:35→11:27)
[2021-11-07 08:37] VITALS: BP 105/60
== END 2021-11-07 13:52 | disposition left against medical advice (07) | DRG 535 ==
LOC: ER 16:39 → 6EST 19:04 → ENRESERV 22:44
PROVIDERS: ADMIT Internal Medicine; ATTEND Internal Medicine
PROC: 5A1D70Z Performance of Urinary Filtration, Intermittent, Less than 6 Hours Per Day (ICD-10-PCS; principal; 2021-11-01)
PROC: 5A1D70Z Performance of Urinary Filtration, Intermittent, Less than 6 Hours Per Day (ICD-10-PCS; 2021-11-05)
DX: S72.112A Displaced fracture of greater trochanter of left femur, initial encounter for closed fracture (principal); A41.9 Sepsis, unspecified organism; K25.4 Chronic or unspecified gastric ulcer with hemorrhage; N18.6 End stage renal disease; K29.71 Gastritis, unspecified, with bleeding; K57.91 Diverticulosis of intestine, part unspecified, without perforation or abscess with bleeding; E87.1 Hypo-osmolality and hyponatremia; I12.0 Hypertensive chronic kidney disease with stage 5 chronic kidney disease or end stage renal disease; C18.9 Malignant neoplasm of colon, unspecified; G95.20 Unspecified cord compression; N39.0 Urinary tract infection, site not specified; E11.22 Type 2 diabetes mellitus with diabetic chronic kidney disease; E11.51 Type 2 diabetes mellitus with diabetic peripheral angiopathy without gangrene; D64.9 Anemia, unspecified; K52.9 Noninfective gastroenteritis and colitis, unspecified; W18.39XA Other fall on same level, initial encounter; F03.90 Unspecified dementia, unspecified severity, without behavioral disturbance, psychotic disturbance, mood disturbance, and anxiety; Z20.822 Contact with and (suspected) exposure to COVID-19; Z53.29 Procedure and treatment not carried out because of patient's decision for other reasons; Z89.612 Acquired absence of left leg above knee; Z91.19 Patient's noncompliance with other medical treatment and regimen; Z79.4 Long term (current) use of insulin; Z99.2 Dependence on renal dialysis; Z79.82 Long term (current) use of aspirin; Z87.891 Personal history of nicotine dependence; Y93.89 Activity, other specified; Y92.89 Other specified places as the place of occurrence of the external cause; Y99.8 Other external cause status; Z82.49 Family history of ischemic heart disease and other diseases of the circulatory system; Z90.49 Acquired absence of other specified parts of digestive tract
CPT/HCPCS: 36415; 71045; 72192; 73502; 73700; 74176; 80048; 80053; 82270; 82607; 82728; 82746; 82962; 83036; 83540; 83550; 84145; 85018; 85025; 85044; 86705; 86709; 86803; 87340; 87426; 93922; 97162; 97166; 97530; 99285; J0696; J0885; J1450; J1644; J1815; J3370; J7060

== ENCOUNTER 2021-11-09 19:07 | Inpatient (IN) | payer MEDICARE, MEDICAID ==
[~2021-11-09] VITALS: Ht 167.6 cm; Wt 69.9 kg
[2021-11-09] MEDS ORDERED: KETOROLAC 60MG/2ML VIAL IM ONE (19:45)
[2021-11-09] MEDS ORDERED: MORPHINE SULFATE 10 MG/ML CPJ IM ONE (19:45)
[2021-11-09 20:57] LABS: BASOPHILS % 0.6 % (0.0-2.0); EOSINOPHILS % 1.6 % (0.0-5.0); HEMATOCRIT. 25.1 % (42.0-52.0); HEMOGLOBIN. 7.9 g/dL (14.0-18.0); INR 1.2; LYMPHOCYTES % 15.6 % (20.0-50.0); MEAN CORPUSCULAR HEMOGLOBIN 32.1 pg (28.0-32.0); MEAN CORPUSCULAR VOLUME 101.3 fL (80.0-94.0); MONOCYTES % 9.1 % (2.0-8.0); NEUTROPHILS % 73.1 % (40.0-76.0); PLATELET 593 x1000/uL (130-400); PROTHROMBIN TIME 12.4 sec (9.6-11.0); RED BLOOD CELL COUNT 2.48 mill/uL (4.7-6.1); RED CELL DISTRIBUTION WIDTH 13.4 % (11.6-14.6)
[2021-11-09 21:00] LABS: CHLORIDE 110 mEq/L (98-107)
[2021-11-09] MEDS ORDERED: DEXTROSE 50% WATER 50ML SYRINGE IV ONE (21:30)
[2021-11-09] MEDS ORDERED: MORPHINE SULFATE 4 MG/ML CPJ (NOT FOR IM USE) IV ONE (21:30)
[2021-11-09] MEDS ORDERED: INSULIN REGULAR (HUMULIN R) 300UNITS/3ML VIAL IV ONE (21:30)
[2021-11-09] MEDS ORDERED: KETOROLAC 30MG/ML VIAL IM SCH (21:30)
[2021-11-09] MEDS ORDERED: MORPHINE SULFATE 10 MG/ML CPJ IM SCH (21:30)
[2021-11-09] MEDS ORDERED: CALCIUM GLUCONATE 100MG/ML 10ML VIAL IV ONE (21:30)
[2021-11-09] MEDS ORDERED: KETOROLAC 30MG/ML VIAL IV ONE (21:30)
[2021-11-09] MEDS: LIDOCAINE 5% PATCH TOP SCH (21:47)
[2021-11-10] MEDS ORDERED: SODIUM CHLORIDE 0.9% 250 ML IV SCH (02:15)
[2021-11-10] MEDS ORDERED: SODIUM CHLORIDE 0.9% 1,000 ML IV SCH (02:15)
[2021-11-10] MEDS ORDERED: CEFEPIME 1,000 MG in DEXTROSE 5% WATER 50 ML IV SCH (03:00)
[2021-11-10] MEDS: LIDOCAINE 5% PATCH TOP SCH (09:34)
[2021-11-10 09:35] LABS: CHLORIDE 112 mEq/L (98-107)
[2021-11-10 10:30] VITALS: BP 125/68
[2021-11-10 12:00] VITALS: BP 125/68
[2021-11-10] MEDS ORDERED: VANCOMYCIN 1G PREMIX 200 ML IV NR (18:00)
[2021-11-10 20:00] VITALS: BP 98/57
[2021-11-10] MEDS: PIPERACILLIN/TAZOBACTAM 3.375 G in DEXTROSE 5% WATER 50 ML IV SCH (20:31)
[2021-11-10] MEDS ORDERED: NALOXONE HCL 0.4MG/ML VIAL IV PRN (22:45)
[2021-11-10] MEDS: HYDROCODONE/ACETAMINOPHEN 5/325MG TABLET PO PRN (23:21)
[2021-11-11] VITALS: BP 101/61
[2021-11-11 04:00] VITALS: BP 112/59
[2021-11-11 06:41] LABS: HEMATOCRIT. 23.6 % (42.0-52.0); MEAN CORPUSCULAR HEMOGLOBIN 33.1 pg (28.0-32.0); MEAN PLATELET VOLUME 8.1 fl (7.4-10.4); PLATELET 515 x1000/uL (130-400); RED BLOOD CELL COUNT 2.41 mill/uL (4.7-6.1)
[2021-11-11 08:00] VITALS: BP 121/62
[2021-11-11] MEDS ORDERED: CEFEPIME 500 MG in DEXTROSE 5% WATER 50 ML IV SCH (09:00)
[2021-11-11] MEDS ORDERED: DEXTROSE 50% WATER 50ML SYRINGE IV PRN (09:15)
[2021-11-11] MEDS: PIPERACILLIN/TAZOBACTAM 3.375 G in DEXTROSE 5% WATER 50 ML IV SCH ×2 (09:38→21:15)
[2021-11-11] MEDS: PANTOPRAZOLE SODIUM 40 MG/VIAL IV SCH (09:38)
[2021-11-11] MEDS: LIDOCAINE 5% PATCH TOP SCH (09:39)
[2021-11-11] MEDS: HYDROCODONE/ACETAMINOPHEN 5/325MG TABLET PO PRN ×3 (09:40→21:16)
[2021-11-11 12:00] VITALS: BP 102/59
[2021-11-11] MEDS: BLOOD SUGAR DIAGNOSTIC STRIP TEST SCH ×3 (12:12→21:13)
[2021-11-11] MEDS: INSULIN LISPRO 100 UNITS/ML SUBCUT SCH ×3 (12:34→21:00)
[2021-11-11 14:50] LABS: PLATELET ESTIMATE INCREASED
[2021-11-11 15:33] VITALS: BP 100/52
[2021-11-11 20:00] VITALS: BP 84/44
[2021-11-12] VITALS: BP 95/53
[2021-11-12 04:00] VITALS: BP 104/50
[2021-11-12] MEDS: HYDROCODONE/ACETAMINOPHEN 5/325MG TABLET PO PRN ×2 (04:52→16:40)
[2021-11-12] MEDS: BLOOD SUGAR DIAGNOSTIC STRIP TEST SCH ×4 (06:18→20:40)
[2021-11-12] MEDS: INSULIN LISPRO 100 UNITS/ML SUBCUT SCH ×4 (06:18→20:40)
[2021-11-12 06:21] LABS: BASOPHILS % 0.4 % (0.0-2.0); EOSINOPHILS % 1.6 % (0.0-5.0); HEMATOCRIT. 24.9 % (42.0-52.0); HEMOGLOBIN. 8.2 g/dL (14.0-18.0); MEAN CORPUSCULAR HEMOGLOBIN 32.6 pg (28.0-32.0); MEAN CORPUSCULAR VOLUME 98.6 fL (80.0-94.0); MEAN PLATELET VOLUME 8.1 fl (7.4-10.4); MONOCYTES % 13.8 % (2.0-8.0); NEUTROPHILS % 62.2 % (40.0-76.0); PLATELET 539 x1000/uL (130-400); RED BLOOD CELL COUNT 2.53 mill/uL (4.7-6.1); RED CELL DISTRIBUTION WIDTH 13.1 % (11.6-14.6)
[2021-11-12 08:00] VITALS: BP 105/62
[2021-11-12] MEDS: PIPERACILLIN/TAZOBACTAM 3.375 G in DEXTROSE 5% WATER 50 ML IV SCH ×2 (09:06→20:40)
[2021-11-12] MEDS: LIDOCAINE 5% PATCH TOP SCH (09:07)
[2021-11-12 12:00] VITALS: BP 123/60
[2021-11-12] MEDS: PANTOPRAZOLE SODIUM 40 MG/VIAL IV SCH (14:35)
[2021-11-12 16:00] VITALS: BP 100/65
[2021-11-12] MEDS ORDERED: VANCOMYCIN 1G PREMIX 200 ML IV NR (18:00)
[2021-11-12 20:00] VITALS: BP 108/58
[2021-11-13] VITALS: BP 101/59
[2021-11-13 04:00] VITALS: BP 102/58
[2021-11-13] MEDS: INSULIN LISPRO 100 UNITS/ML SUBCUT SCH ×4 (06:29→21:01)
[2021-11-13] MEDS: BLOOD SUGAR DIAGNOSTIC STRIP TEST SCH ×4 (06:29→20:07)
[2021-11-13 08:00] VITALS: BP 119/68
[2021-11-13] MEDS: LIDOCAINE 5% PATCH TOP SCH (09:29)
[2021-11-13] MEDS: PANTOPRAZOLE SODIUM 40 MG/VIAL IV SCH (09:29)
[2021-11-13] MEDS: PIPERACILLIN/TAZOBACTAM 3.375 G in DEXTROSE 5% WATER 50 ML IV SCH ×2 (09:30→20:07)
[2021-11-13 11:54] LABS: BASOPHILS % 0.7 % (0.0-2.0); EOSINOPHILS % 1.4 % (0.0-5.0); HEMATOCRIT. 25.6 % (42.0-52.0); HEMOGLOBIN. 8.5 g/dL (14.0-18.0); LYMPHOCYTES % 15.4 % (20.0-50.0); MEAN CORPUSCULAR HEMOGLOBIN 32.6 pg (28.0-32.0); MEAN CORPUSCULAR VOLUME 98.5 fL (80.0-94.0); MEAN PLATELET VOLUME 8.1 fl (7.4-10.4); NEUTROPHILS % 71.5 % (40.0-76.0); PLATELET 568 x1000/uL (130-400); RED CELL DISTRIBUTION WIDTH 13.3 % (11.6-14.6)
[2021-11-13 12:00] VITALS: BP 132/70
[2021-11-13] MEDS: HYDROCODONE/ACETAMINOPHEN 5/325MG TABLET PO PRN ×2 (15:23→21:02)
[2021-11-13 16:00] VITALS: BP 113/66
[2021-11-13 18:20] LABS: BASOPHILS % 0.5 % (0.0-2.0); EOSINOPHILS % 1.1 % (0.0-5.0); HEMATOCRIT. 25.1 % (42.0-52.0); HEMOGLOBIN. 8.2 g/dL (14.0-18.0); MEAN CORPUSCULAR HEMOGLOBIN 32.6 pg (28.0-32.0); MEAN CORPUSCULAR VOLUME 99.3 fL (80.0-94.0); MONOCYTES % 13.4 % (2.0-8.0); PLATELET 540 x1000/uL (130-400); RED BLOOD CELL COUNT 2.53 mill/uL (4.7-6.1)
[2021-11-13 20:00] VITALS: BP 115/61
[2021-11-14] VITALS: BP 98/57
[2021-11-14 04:00] VITALS: BP 116/68
[2021-11-14] MEDS: INSULIN LISPRO 100 UNITS/ML SUBCUT SCH ×4 (05:35→21:00)
[2021-11-14] MEDS: BLOOD SUGAR DIAGNOSTIC STRIP TEST SCH ×4 (05:35→21:09)
[2021-11-14 07:49] VITALS: BP 108/61
[2021-11-14] MEDS: LIDOCAINE 5% PATCH TOP SCH (08:11)
[2021-11-14] MEDS: PANTOPRAZOLE SODIUM 40 MG/VIAL IV SCH (08:11)
[2021-11-14] MEDS: PIPERACILLIN/TAZOBACTAM 3.375 G in DEXTROSE 5% WATER 50 ML IV SCH ×2 (08:11→21:10)
[2021-11-14] MEDS: HYDROCODONE/ACETAMINOPHEN 5/325MG TABLET PO PRN (08:43)
[2021-11-14 11:25] VITALS: BP 113/65
[2021-11-14 16:32] VITALS: BP 119/67
[2021-11-14 20:00] VITALS: BP 102/60
[2021-11-15] VITALS (8 sets, daily range): BP systolic 96–115; BP diastolic 47–65
[2021-11-15] MEDS: INSULIN LISPRO 100 UNITS/ML SUBCUT SCH ×4 (06:35→21:51)
[2021-11-15] MEDS: BLOOD SUGAR DIAGNOSTIC STRIP TEST SCH ×4 (06:35→21:48)
[2021-11-15] MEDS: PANTOPRAZOLE SODIUM 40 MG/VIAL IV SCH (09:07)
[2021-11-15] MEDS: PIPERACILLIN/TAZOBACTAM 3.375 G in DEXTROSE 5% WATER 50 ML IV SCH ×2 (09:09→21:48)
[2021-11-15] MEDS: LIDOCAINE 5% PATCH TOP SCH (09:09)
[2021-11-15] MEDS: HYDROCODONE/ACETAMINOPHEN 5/325MG TABLET PO PRN (09:22)
[2021-11-15] MEDS: EPOETIN ALFA-EPBX 10,000 UNIT/ML VIAL SUBCUT SCH (21:48)
[2021-11-16] VITALS: BP 127/75
[2021-11-16 04:00] VITALS: BP 108/60
[2021-11-16] MEDS: BLOOD SUGAR DIAGNOSTIC STRIP TEST SCH ×4 (05:56→21:03)
[2021-11-16] MEDS: INSULIN LISPRO 100 UNITS/ML SUBCUT SCH ×4 (05:57→21:27)
[2021-11-16 07:30] LABS: HEMOGLOBIN 8.5 g/dL (14.0-18.0); MEAN CORPUSCULAR HEMOGLOBIN 32.3 pg (28.0-32.0); MEAN CORPUSCULAR VOLUME 99.2 fL (80.0-94.0); PLATELET 428 x1000/uL (130-400); RED BLOOD CELL COUNT 2.62 mill/uL (4.7-6.1); RED CELL DISTRIBUTION WIDTH 13.6 % (11.6-14.6)
[2021-11-16 08:00] VITALS: BP 125/69
[2021-11-16] MEDS: PIPERACILLIN/TAZOBACTAM 3.375 G in DEXTROSE 5% WATER 50 ML IV SCH ×2 (09:18→20:57)
[2021-11-16] MEDS: PANTOPRAZOLE SODIUM 40 MG/VIAL IV SCH (09:18)
[2021-11-16] MEDS ORDERED: LIDOCAINE HCL 1% 50ML VIAL (10MG/ML) ONE ×2 (09:39→13:00)
[2021-11-16] MEDS ORDERED: POLYMYXIN B SULFATE 500000 UNITS/VIAL ONE (09:39)
[2021-11-16] MEDS ORDERED: THROMBIN (BOVINE) 5000 UNITS/VIAL TOP ONE (09:39)
[2021-11-16] MEDS ORDERED: BUPIVACAINE HCL/PF 0.5% (5MG/ML) 10ML ONE (09:40)
[2021-11-16] MEDS ORDERED: BACITRACIN 15GM TUBE TOP ONE (09:40)
[2021-11-16] MEDS ORDERED: METHADONE HCL 5MG TABLET PO PRN (10:00)
[2021-11-16 12:00] VITALS: BP 113/68
[2021-11-16] MEDS ORDERED: HEPARIN SODIUM 1,000 UNIT/1ML VIAL IV ONE (12:32)
[2021-11-16] MEDS ORDERED: MORPHINE SULFATE 4 MG/ML CPJ (NOT FOR IM USE) IV PRN (12:45)
[2021-11-16] MEDS ORDERED: FENTANYL CITRATE/PF 50MCG/ML 2ML VIAL ONE (12:59)
[2021-11-16] MEDS ORDERED: MIDAZOLAM HCL 2 MG/2 ML VIAL ONE (12:59)
[2021-11-16] MEDS ORDERED: NALOXONE HCL 0.4MG/ML VIAL IV PRN (13:00)
[2021-11-16] MEDS ORDERED: PROPOFOL 200MG/20ML VIAL IV ONE (13:02)
[2021-11-16] MEDS ORDERED: HEPARIN 1000 UNITS/ML 10ML ONE (13:42)
[2021-11-16] MEDS ORDERED: PHENYLEPHRINE HCL 10 MG/ML 1ML (IV VIAL) IV ONE (13:52)
[2021-11-16] MEDS ORDERED: PROTAMINE SULFATE 10MG/ML VIAL 5ML IV ONE (14:23)
[2021-11-16] MEDS ORDERED: DESMOPRESSIN ACETATE 4MCG/ML AMP ONE (14:29)
[2021-11-16 17:00] VITALS: BP 119/6
[2021-11-16 19:58] VITALS: BP 97/55
[2021-11-16] MEDS: ACETAMINOPHEN 325MG TABLET PO PRN (20:57)
[2021-11-17] VITALS: BP 110/61
[2021-11-17 04:00] VITALS: BP 123/69
[2021-11-17] MEDS: BLOOD SUGAR DIAGNOSTIC STRIP TEST SCH ×4 (06:08→21:00)
[2021-11-17] MEDS: MORPHINE SULFATE 2 MG/ML CPJ (NOT FOR IM USE) IV PRN (06:18)
[2021-11-17] MEDS: INSULIN LISPRO 100 UNITS/ML SUBCUT SCH ×4 (06:41→21:00)
[2021-11-17 08:00] VITALS: BP 125/70
[2021-11-17] MEDS: PIPERACILLIN/TAZOBACTAM 3.375 G in DEXTROSE 5% WATER 50 ML IV SCH ×2 (08:59→21:42)
[2021-11-17] MEDS: PANTOPRAZOLE SODIUM 40 MG/VIAL IV SCH (08:59)
[2021-11-17 12:00] VITALS: BP 116/64
[2021-11-17 16:00] VITALS: BP 121/68
[2021-11-17] MEDS: ACETAMINOPHEN 325MG TABLET PO PRN (18:10)
[2021-11-17] MEDS: EPOETIN ALFA-EPBX 10,000 UNIT/ML VIAL SUBCUT SCH (21:43)
[2021-11-17] MEDS: ZOLPIDEM TARTRATE 5MG TABLET PO PRN (21:43)
[2021-11-17 22:32] LABS: TOTAL IRON BINDING CAPACITY 172 ug/dL (250-450)
[2021-11-17 22:45] LABS: FERRITIN 580 ng/mL (22-322)
[2021-11-17 22:54] LABS: VITAMIN B12 SERUM > 2000.0 pg/mL (211-911)
[2021-11-18 07:02] LABS: BASOPHILS % 0.5 % (0.0-2.0); EOSINOPHILS % 0.8 % (0.0-5.0); HEMATOCRIT. 23.6 % (42.0-52.0); HEMOGLOBIN. 7.7 g/dL (14.0-18.0); LYMPHOCYTES % 16.6 % (20.0-50.0); MEAN CORPUSCULAR HEMOGLOBIN 32.5 pg (28.0-32.0); MEAN CORPUSCULAR VOLUME 98.9 fL (80.0-94.0); MONOCYTES % 13.5 % (2.0-8.0); NEUTROPHILS % 68.6 % (40.0-76.0); PLATELET 344 x1000/uL (130-400); RED BLOOD CELL COUNT 2.38 mill/uL (4.7-6.1); RED CELL DISTRIBUTION WIDTH 13.3 % (11.6-14.6)
[2021-11-18] MEDS: BLOOD SUGAR DIAGNOSTIC STRIP TEST SCH ×4 (07:10→20:52)
[2021-11-18] MEDS: INSULIN LISPRO 100 UNITS/ML SUBCUT SCH ×4 (07:23→20:52)
[2021-11-18 08:00] VITALS: BP 108/51
[2021-11-18 12:00] VITALS: BP 143/74
[2021-11-18] MEDS: PANTOPRAZOLE SODIUM 40 MG/VIAL IV SCH (12:11)
[2021-11-18] MEDS: MORPHINE SULFATE 2 MG/ML CPJ (NOT FOR IM USE) IV PRN (12:25)
[2021-11-18 16:00] VITALS: BP 130/72
[2021-11-18 18:26] LABS: HEMATOCRIT 24.2 % (42.0-52.0); HEMOGLOBIN 7.7 g/dL (14.0-18.0)
[2021-11-18 20:00] VITALS: BP 132/70
[2021-11-19] VITALS: BP 118/64
[2021-11-19 03:09] LABS: BASOPHILS % 0.6 % (0.0-2.0); EOSINOPHILS % 0.8 % (0.0-5.0); HEMATOCRIT. 24.4 % (42.0-52.0); HEMOGLOBIN. 7.7 g/dL (14.0-18.0); LYMPHOCYTES % 17.4 % (20.0-50.0); MEAN CORPUSCULAR HEMOGLOBIN 31.2 pg (28.0-32.0); MEAN CORPUSCULAR VOLUME 99.1 fL (80.0-94.0); MEAN PLATELET VOLUME 8.2 fl (7.4-10.4); NEUTROPHILS % 69.2 % (40.0-76.0); PLATELET 340 x1000/uL (130-400); RED BLOOD CELL COUNT 2.46 mill/uL (4.7-6.1); RED CELL DISTRIBUTION WIDTH 13.4 % (11.6-14.6)
[2021-11-19 03:13] LABS: INR 1.1; PROTHROMBIN TIME 11.9 sec (9.6-11.0)
[2021-11-19 04:00] VITALS: BP 108/54
[2021-11-19 08:00] VITALS: BP 121/64
[2021-11-19] MEDS: PANTOPRAZOLE SODIUM 40 MG/VIAL IV SCH (09:00)
[2021-11-19 12:00] VITALS: BP_SYST 138; BP_SYST 144; BP_DIAS 68; BP_DIAS 79
[2021-11-19] MEDS: INSULIN LISPRO 100 UNITS/ML SUBCUT SCH ×3 (12:40→21:31)
[2021-11-19] MEDS: BLOOD SUGAR DIAGNOSTIC STRIP TEST SCH ×3 (12:57→21:32)
[2021-11-19] MEDS ORDERED: MIDAZOLAM HCL 5 MG/5 ML VIAL ONE (13:34)
[2021-11-19] MEDS ORDERED: PROPOFOL 200MG/20ML VIAL IV ONE (13:35)
[2021-11-19] MEDS ORDERED: DIATR MEGLU/DIATRIZOATE SOLN 30ML PO NR (16:45)
[2021-11-19 17:12] LABS: HEMOGLOBIN 7.8 g/dL (14.0-18.0)
[2021-11-19 20:00] VITALS: BP 123/69
[2021-11-19] MEDS: EPOETIN ALFA-EPBX 10,000 UNIT/ML VIAL SUBCUT SCH (21:30)
[2021-11-19] MEDS: ACETAMINOPHEN 325MG TABLET PO PRN (21:38)
[2021-11-19] MEDS: ZOLPIDEM TARTRATE 5MG TABLET PO PRN (23:33)
[2021-11-20] VITALS: BP 119/67
[2021-11-20 04:00] VITALS: BP 127/59
[2021-11-20] MEDS: BLOOD SUGAR DIAGNOSTIC STRIP TEST SCH ×4 (06:39→21:48)
[2021-11-20] MEDS: INSULIN LISPRO 100 UNITS/ML SUBCUT SCH ×4 (06:40→21:00)
[2021-11-20 08:00] VITALS: BP 124/64
[2021-11-20] MEDS ORDERED: DIATR MEGLU/DIATRIZOATE SOLN 30ML PO NR (08:15)
[2021-11-20] MEDS: PANTOPRAZOLE SODIUM 40 MG/VIAL IV SCH (09:23)
[2021-11-20 12:00] VITALS: BP 127/74
[2021-11-20] MEDS: MORPHINE SULFATE 2 MG/ML CPJ (NOT FOR IM USE) IV PRN (14:09)
[2021-11-20 16:00] VITALS: BP 138/82
[2021-11-20 16:02] LABS: BASOPHILS % 0.9 % (0.0-2.0); EOSINOPHILS % 1.2 % (0.0-5.0); HEMATOCRIT. 24.5 % (42.0-52.0); HEMOGLOBIN. 7.9 g/dL (14.0-18.0); LYMPHOCYTES % 18.3 % (20.0-50.0); MEAN CORPUSCULAR HEMOGLOBIN 31.8 pg (28.0-32.0); MEAN CORPUSCULAR VOLUME 98.3 fL (80.0-94.0); MEAN PLATELET VOLUME 8.4 fl (7.4-10.4); MONOCYTES % 13.2 % (2.0-8.0); NEUTROPHILS % 66.4 % (40.0-76.0); PLATELET 346 x1000/uL (130-400); RED BLOOD CELL COUNT 2.49 mill/uL (4.7-6.1); RED CELL DISTRIBUTION WIDTH 13.2 % (11.6-14.6)
[2021-11-20] MEDS ORDERED: SODIUM POLYSTYRENE SULFONATE 15 G/60 ML BOT PO NR (16:30)
[2021-11-20] MEDS ORDERED: ALBUTEROL (0.083%) 2.5MG/3ML NEB HHN NR (16:30)
[2021-11-20 20:00] VITALS: BP 127/71
[2021-11-20] MEDS: ACETAMINOPHEN 325MG TABLET PO PRN (22:22)
[2021-11-21] VITALS: BP 118/59
[2021-11-21 04:00] VITALS: BP 118/67
[2021-11-21] MEDS: BLOOD SUGAR DIAGNOSTIC STRIP TEST SCH ×4 (06:20→19:57)
[2021-11-21] MEDS: INSULIN LISPRO 100 UNITS/ML SUBCUT SCH ×4 (06:42→19:56)
[2021-11-21 07:45] VITALS: BP 126/64
[2021-11-21 08:06] LABS: HEMATOCRIT. 23.9 % (42.0-52.0); HEMOGLOBIN. 7.7 g/dL (14.0-18.0); MEAN CORPUSCULAR HEMOGLOBIN 31.7 pg (28.0-32.0); MEAN CORPUSCULAR VOLUME 98.5 fL (80.0-94.0); MEAN PLATELET VOLUME 8.5 fl (7.4-10.4); PLATELET 326 x1000/uL (130-400); RED BLOOD CELL COUNT 2.42 mill/uL (4.7-6.1)
[2021-11-21] MEDS: PANTOPRAZOLE SODIUM 40 MG/VIAL IV SCH (08:49)
[2021-11-21 11:27] VITALS: BP 137/72
[2021-11-21 15:20] VITALS: BP 111/62
[2021-11-21] MEDS: ACETAMINOPHEN 325MG TABLET PO PRN (19:34)
[2021-11-21 20:00] VITALS: BP 108/64
[2021-11-22] VITALS: BP 128/71
[2021-11-22 04:00] VITALS: BP 137/74
[2021-11-22] MEDS: BLOOD SUGAR DIAGNOSTIC STRIP TEST SCH ×4 (06:30→21:49)
[2021-11-22] MEDS: INSULIN LISPRO 100 UNITS/ML SUBCUT SCH ×4 (06:31→21:00)
[2021-11-22] MEDS: ACETAMINOPHEN 325MG TABLET PO PRN (06:32)
[2021-11-22 07:16] LABS: PLATELET ESTIMATE NORMAL
[2021-11-22 07:28] LABS: HEMATOCRIT. 22.7 % (42.0-52.0); HEMOGLOBIN. 7.5 g/dL (14.0-18.0); MEAN CORPUSCULAR HEMOGLOBIN 32.3 pg (28.0-32.0); MEAN CORPUSCULAR VOLUME 97.6 fL (80.0-94.0); MEAN PLATELET VOLUME 8.3 fl (7.4-10.4); PLATELET 313 x1000/uL (130-400); RED BLOOD CELL COUNT 2.32 mill/uL (4.7-6.1); RED CELL DISTRIBUTION WIDTH 12.8 % (11.6-14.6)
[2021-11-22 08:00] VITALS: BP 121/66
[2021-11-22] MEDS: PANTOPRAZOLE SODIUM 40 MG/VIAL IV SCH (10:50)
[2021-11-22 12:00] VITALS: BP 123/73
[2021-11-22 12:34] LABS: PLATELET ESTIMATE NORMAL
[2021-11-22 16:00] VITALS: BP 117/68
[2021-11-22 20:00] VITALS: BP 134/81
[2021-11-23] VITALS: BP 133/76
[2021-11-23 04:00] VITALS: BP 139/77
[2021-11-23] MEDS: BLOOD SUGAR DIAGNOSTIC STRIP TEST SCH ×4 (05:31→20:28)
[2021-11-23] MEDS: INSULIN LISPRO 100 UNITS/ML SUBCUT SCH ×4 (05:31→22:14)
[2021-11-23 06:34] LABS: HEMATOCRIT. 23.5 % (42.0-52.0); HEMOGLOBIN. 7.7 g/dL (14.0-18.0); MEAN CORPUSCULAR HEMOGLOBIN 32.1 pg (28.0-32.0); MEAN CORPUSCULAR VOLUME 98.1 fL (80.0-94.0); MEAN PLATELET VOLUME 8.5 fl (7.4-10.4); PLATELET 352 x1000/uL (130-400); RED BLOOD CELL COUNT 2.39 mill/uL (4.7-6.1); RED CELL DISTRIBUTION WIDTH 13.1 % (11.6-14.6)
[2021-11-23 08:00] VITALS: BP 135/72
[2021-11-23] MEDS: PANTOPRAZOLE SODIUM 40 MG/VIAL IV SCH (09:27)
[2021-11-23] MEDS: ACETAMINOPHEN 325MG TABLET PO PRN ×2 (09:28→15:00)
[2021-11-23] MEDS: LACTOBACILLUS GG CAPSULE PO SCH ×2 (09:28→09:41)
[2021-11-23 12:00] VITALS: BP 128/75
[2021-11-23 15:05] LABS: PLATELET ESTIMATE NORMAL
[2021-11-23 16:00] VITALS: BP 126/72
[2021-11-23 20:00] VITALS: BP 128/74
[2021-11-23] MEDS: EPOETIN ALFA 10000UNITS/ML VIAL SUBCUT SCH (21:57)
[2021-11-24] VITALS: BP 129/76
[2021-11-24 04:00] VITALS: BP 137/74
[2021-11-24] MEDS: BLOOD SUGAR DIAGNOSTIC STRIP TEST SCH ×4 (07:10→21:01)
[2021-11-24 07:19] LABS: BASOPHILS % 0.6 % (0.0-2.0); EOSINOPHILS % 1.4 % (0.0-5.0); HEMATOCRIT. 25.2 % (42.0-52.0); LYMPHOCYTES % 23.3 % (20.0-50.0); MEAN CORPUSCULAR HEMOGLOBIN 31.6 pg (28.0-32.0); MEAN CORPUSCULAR VOLUME 98.9 fL (80.0-94.0); MEAN PLATELET VOLUME 8.2 fl (7.4-10.4); MONOCYTES % 14.4 % (2.0-8.0); NEUTROPHILS % 60.3 % (40.0-76.0); PLATELET 374 x1000/uL (130-400); RED BLOOD CELL COUNT 2.55 mill/uL (4.7-6.1); RED CELL DISTRIBUTION WIDTH 13.4 % (11.6-14.6)
[2021-11-24] MEDS: INSULIN LISPRO 100 UNITS/ML SUBCUT SCH ×4 (07:40→21:00)
[2021-11-24 08:00] VITALS: BP 123/74
[2021-11-24] MEDS: ACETAMINOPHEN 325MG TABLET PO PRN (09:00)
[2021-11-24] MEDS: PANTOPRAZOLE SODIUM 40 MG/VIAL IV SCH (09:00)
[2021-11-24] MEDS: LACTOBACILLUS GG CAPSULE PO SCH (09:00)
[2021-11-24 12:00] VITALS: BP 101/64
[2021-11-24 16:00] VITALS: BP 131/72
[2021-11-24 20:56] VITALS: BP 127/50
[2021-11-25 00:48] VITALS: BP 132/60
[2021-11-25 04:50] VITALS: BP 90/50
[2021-11-25 07:22] LABS: BASOPHILS % 0.5 % (0.0-2.0); EOSINOPHILS % 1.7 % (0.0-5.0); HEMATOCRIT. 25.5 % (42.0-52.0); HEMOGLOBIN. 8.4 g/dL (14.0-18.0); LYMPHOCYTES % 25.1 % (20.0-50.0); MEAN CORPUSCULAR VOLUME 97.3 fL (80.0-94.0); MEAN PLATELET VOLUME 8.4 fl (7.4-10.4); MONOCYTES % 14.7 % (2.0-8.0); PLATELET 343 x1000/uL (130-400); RED BLOOD CELL COUNT 2.62 mill/uL (4.7-6.1); RED CELL DISTRIBUTION WIDTH 13.4 % (11.6-14.6)
[2021-11-25] MEDS: INSULIN LISPRO 100 UNITS/ML SUBCUT SCH ×4 (07:50→21:31)
[2021-11-25] MEDS: BLOOD SUGAR DIAGNOSTIC STRIP TEST SCH ×4 (08:07→21:09)
[2021-11-25] MEDS: ACETAMINOPHEN 325MG TABLET PO PRN ×2 (11:01→18:25)
[2021-11-25] MEDS: LACTOBACILLUS GG CAPSULE PO SCH (11:01)
[2021-11-25] MEDS: PANTOPRAZOLE SODIUM 40 MG/VIAL IV SCH (11:02)
[2021-11-25 20:00] VITALS: BP 117/63
[2021-11-25] MEDS: EPOETIN ALFA 10000UNITS/ML VIAL SUBCUT SCH (21:27)
[2021-11-26] VITALS: BP 115/65
[2021-11-26] MEDS: ACETAMINOPHEN 325MG TABLET PO PRN ×3 (00:36→18:16)
[2021-11-26 04:00] VITALS: BP 127/68
[2021-11-26 06:32] LABS: BASOPHILS % 0.8 % (0.0-2.0); EOSINOPHILS % 2.6 % (0.0-5.0); HEMATOCRIT. 26.7 % (42.0-52.0); HEMOGLOBIN. 8.6 g/dL (14.0-18.0); LYMPHOCYTES % 23.9 % (20.0-50.0); MEAN CORPUSCULAR HEMOGLOBIN 31.6 pg (28.0-32.0); MEAN CORPUSCULAR VOLUME 97.7 fL (80.0-94.0); MEAN PLATELET VOLUME 8.2 fl (7.4-10.4); MONOCYTES % 14.6 % (2.0-8.0); NEUTROPHILS % 58.1 % (40.0-76.0); PLATELET 360 x1000/uL (130-400); RED BLOOD CELL COUNT 2.73 mill/uL (4.7-6.1); RED CELL DISTRIBUTION WIDTH 13.2 % (11.6-14.6)
[2021-11-26] MEDS: BLOOD SUGAR DIAGNOSTIC STRIP TEST SCH ×4 (07:20→21:00)
[2021-11-26 08:00] VITALS: BP 128/72
[2021-11-26] MEDS: LACTOBACILLUS GG CAPSULE PO SCH (08:47)
[2021-11-26] MEDS: PANTOPRAZOLE SODIUM 40 MG/VIAL IV SCH (08:47)
[2021-11-26] MEDS: INSULIN LISPRO 100 UNITS/ML SUBCUT SCH ×4 (08:54→21:00)
[2021-11-26 12:00] VITALS: BP 135/76
[2021-11-26 14:15] LABS: HEPATITIS B SURFACE ANTIGEN NEGATIVE
[2021-11-26 16:00] VITALS: BP 130/73
[2021-11-26 20:00] VITALS: BP 134/72
[2021-11-27] VITALS: BP 120/62
[2021-11-27 04:00] VITALS: BP 122/64
[2021-11-27] MEDS: ACETAMINOPHEN 325MG TABLET PO PRN ×3 (04:05→21:08)
[2021-11-27] MEDS: BLOOD SUGAR DIAGNOSTIC STRIP TEST SCH ×4 (07:20→21:00)
[2021-11-27] MEDS: INSULIN LISPRO 100 UNITS/ML SUBCUT SCH ×4 (07:50→21:00)
[2021-11-27 08:00] VITALS: BP 125/65
[2021-11-27] MEDS: PANTOPRAZOLE SODIUM 40 MG/VIAL IV SCH (09:17)
[2021-11-27] MEDS: LACTOBACILLUS GG CAPSULE PO SCH (09:17)
[2021-11-27 12:00] VITALS: BP 134/72
[2021-11-27 16:00] VITALS: BP 132/74
[2021-11-27 20:00] VITALS: BP 124/75
[2021-11-27] MEDS: EPOETIN ALFA 10000UNITS/ML VIAL SUBCUT SCH (21:38)
[2021-11-28] VITALS: BP 127/72
[2021-11-28] MEDS: ACETAMINOPHEN 325MG TABLET PO PRN ×3 (02:27→18:00)
[2021-11-28 04:00] VITALS: BP 128/73
[2021-11-28] MEDS: BLOOD SUGAR DIAGNOSTIC STRIP TEST SCH ×4 (06:07→21:00)
[2021-11-28] MEDS: INSULIN LISPRO 100 UNITS/ML SUBCUT SCH ×4 (07:50→21:00)
[2021-11-28 08:00] VITALS: BP 125/72
[2021-11-28] MEDS: PANTOPRAZOLE SODIUM 40 MG/VIAL IV SCH (08:12)
[2021-11-28] MEDS: LACTOBACILLUS GG CAPSULE PO SCH (08:13)
[2021-11-28 12:00] VITALS: BP 128/69
[2021-11-28 15:58] LABS: BASOPHILS % 0.4 % (0.0-2.0); EOSINOPHILS % 3.1 % (0.0-5.0); HEMATOCRIT. 28.6 % (42.0-52.0); HEMOGLOBIN. 9.2 g/dL (14.0-18.0); MEAN CORPUSCULAR HEMOGLOBIN 31.7 pg (28.0-32.0); MEAN CORPUSCULAR VOLUME 98.2 fL (80.0-94.0); MEAN PLATELET VOLUME 8.2 fl (7.4-10.4); MONOCYTES % 11.2 % (2.0-8.0); NEUTROPHILS % 58.3 % (40.0-76.0); PLATELET 392 x1000/uL (130-400); RED BLOOD CELL COUNT 2.91 mill/uL (4.7-6.1); RED CELL DISTRIBUTION WIDTH 13.2 % (11.6-14.6)
[2021-11-28 16:00] VITALS: BP 130/69
[2021-11-28 20:00] VITALS: BP 122/74
[2021-11-29] VITALS: BP 113/65
[2021-11-29 04:00] VITALS: BP 124/67
[2021-11-29] MEDS: BLOOD SUGAR DIAGNOSTIC STRIP TEST SCH ×4 (06:17→21:00)
[2021-11-29] MEDS: INSULIN LISPRO 100 UNITS/ML SUBCUT SCH ×4 (07:50→23:05)
[2021-11-29 08:00] VITALS: BP 133/74
[2021-11-29] MEDS: ACETAMINOPHEN 325MG TABLET PO PRN ×3 (10:12→23:04)
[2021-11-29] MEDS: PANTOPRAZOLE SODIUM 40 MG/VIAL IV SCH (10:12)
[2021-11-29] MEDS: LACTOBACILLUS GG CAPSULE PO SCH (10:12)
[2021-11-29 12:00] VITALS: BP 127/70
[2021-11-29 16:00] VITALS: BP 132/70
[2021-11-29 20:00] VITALS: BP 127/56
[2021-11-30] VITALS: BP 122/70
[2021-11-30 04:00] VITALS: BP 124/84
[2021-11-30] MEDS: BLOOD SUGAR DIAGNOSTIC STRIP TEST SCH ×4 (07:16→21:00)
[2021-11-30] MEDS: INSULIN LISPRO 100 UNITS/ML SUBCUT SCH ×4 (07:16→21:00)
[2021-11-30 08:00] VITALS: BP 134/70
[2021-11-30] MEDS: ACETAMINOPHEN 325MG TABLET PO PRN ×2 (08:59→23:25)
[2021-11-30] MEDS: PANTOPRAZOLE SODIUM 40 MG/VIAL IV SCH (09:00)
[2021-11-30] MEDS: LACTOBACILLUS GG CAPSULE PO SCH (09:00)
[2021-11-30 12:00] VITALS: BP 144/78
[2021-11-30 16:00] VITALS: BP 142/88
[2021-11-30 20:00] VITALS: BP 142/83
[2021-12-01] VITALS: BP 130/74
[2021-12-01 04:00] VITALS: BP 116/60
[2021-12-01] MEDS: EPOETIN ALFA-EPBX 4,000 UNIT/ML VIAL SUBCUT SCH (06:49)
[2021-12-01 07:35] LABS: BASOPHILS % 0.5 % (0.0-2.0); EOSINOPHILS % 2.1 % (0.0-5.0); HEMATOCRIT. 29.1 % (42.0-52.0); HEMOGLOBIN. 9.6 g/dL (14.0-18.0); LYMPHOCYTES % 16.4 % (20.0-50.0); MEAN CORPUSCULAR VOLUME 96.5 fL (80.0-94.0); MEAN PLATELET VOLUME 8.5 fl (7.4-10.4); MONOCYTES % 11.1 % (2.0-8.0); NEUTROPHILS % 69.9 % (40.0-76.0); PLATELET 348 x1000/uL (130-400); RED BLOOD CELL COUNT 3.01 mill/uL (4.7-6.1); RED CELL DISTRIBUTION WIDTH 13.6 % (11.6-14.6)
[2021-12-01] MEDS: BLOOD SUGAR DIAGNOSTIC STRIP TEST SCH ×4 (07:53→21:00)
[2021-12-01 08:00] VITALS: BP 128/76
[2021-12-01] MEDS: INSULIN LISPRO 100 UNITS/ML SUBCUT SCH ×4 (08:13→22:34)
[2021-12-01] MEDS: LOPERAMIDE HCL 2MG CAPSULE PO PRN (10:04)
[2021-12-01] MEDS: LACTOBACILLUS GG CAPSULE PO SCH (10:04)
[2021-12-01] MEDS: PANTOPRAZOLE SODIUM 40 MG/VIAL IV SCH (10:04)
[2021-12-01] MEDS: HYDROCODONE/ACETAMINOPHEN 5/325MG TABLET PO PRN (10:10)
[2021-12-01 12:00] VITALS: BP 119/64
[2021-12-01 16:00] VITALS: BP 118/70
[2021-12-01] MEDS ORDERED: NALOXONE HCL 0.4MG/ML VIAL IV PRN (17:00)
[2021-12-01] MEDS: LACTAID PO SCH (18:29)
[2021-12-01 20:13] VITALS: BP 133/61
[2021-12-02] MEDS: HYDROCODONE/ACETAMINOPHEN 5/325MG TABLET PO PRN ×3 (01:57→16:45)
[2021-12-02 04:48] VITALS: BP 138/73
[2021-12-02] MEDS: BLOOD SUGAR DIAGNOSTIC STRIP TEST SCH ×4 (06:41→21:00)
[2021-12-02] MEDS: LACTAID PO SCH ×3 (07:01→18:35)
[2021-12-02] MEDS: INSULIN LISPRO 100 UNITS/ML SUBCUT SCH ×3 (07:50→17:50)
[2021-12-02 08:00] VITALS: BP 127/73
[2021-12-02 08:10] LABS: BASOPHILS % 0.5 % (0.0-2.0); EOSINOPHILS % 1.8 % (0.0-5.0); HEMATOCRIT. 27.5 % (42.0-52.0); HEMOGLOBIN. 8.9 g/dL (14.0-18.0); LYMPHOCYTES % 25.1 % (20.0-50.0); MEAN CORPUSCULAR HEMOGLOBIN 31.6 pg (28.0-32.0); MEAN CORPUSCULAR VOLUME 97.2 fL (80.0-94.0); MEAN PLATELET VOLUME 8.3 fl (7.4-10.4); MONOCYTES % 13.1 % (2.0-8.0); NEUTROPHILS % 59.5 % (40.0-76.0); PLATELET 319 x1000/uL (130-400); RED BLOOD CELL COUNT 2.83 mill/uL (4.7-6.1); RED CELL DISTRIBUTION WIDTH 13.6 % (11.6-14.6)
[2021-12-02] MEDS: LACTOBACILLUS GG CAPSULE PO SCH (09:31)
[2021-12-02] MEDS: PANTOPRAZOLE 40MG DR TABLET PO SCH (09:31)
[2021-12-02] MEDS: LOPERAMIDE HCL 2MG CAPSULE PO PRN (09:31)
[2021-12-02 12:00] VITALS: BP 138/77
[2021-12-02] MEDS ORDERED: HEPARIN SODIUM 1,000 UNIT/1ML VIAL IV ONE (14:15)
[2021-12-02 16:00] VITALS: BP 130/78
[2021-12-02 20:36] VITALS: BP 113/71
[2021-12-02] MEDS: EPOETIN ALFA-EPBX 4,000 UNIT/ML VIAL SUBCUT SCH (21:00)
[2021-12-03 01:12] VITALS: BP 138/67
[2021-12-03 05:37] VITALS: BP 118/66
[2021-12-03] MEDS: HYDROCODONE/ACETAMINOPHEN 5/325MG TABLET PO PRN ×2 (06:50→21:50)
[2021-12-03] MEDS: INSULIN LISPRO 100 UNITS/ML SUBCUT SCH ×5 (06:51→21:51)
[2021-12-03] MEDS: BLOOD SUGAR DIAGNOSTIC STRIP TEST SCH ×4 (07:20→21:51)
[2021-12-03 08:00] VITALS: BP 119/69
[2021-12-03] MEDS: LACTOBACILLUS GG CAPSULE PO SCH (09:01)
[2021-12-03] MEDS: PANTOPRAZOLE 40MG DR TABLET PO SCH (09:01)
[2021-12-03] MEDS: LACTAID PO SCH ×3 (09:02→18:14)
[2021-12-03] MEDS: LOPERAMIDE HCL 2MG CAPSULE PO PRN (09:02)
[2021-12-03 12:00] VITALS: BP 115/72
[2021-12-03 16:00] VITALS: BP 126/69
[2021-12-03] MEDS ORDERED: ONDANSETRON HCL 4MG/2ML INJ IV PRN (18:15)
[2021-12-03 20:00] VITALS: BP 133/73
[2021-12-04] VITALS: BP 129/73
[2021-12-04 04:00] VITALS: BP 125/73
[2021-12-04] MEDS: LACTAID PO SCH ×3 (07:20→18:19)
[2021-12-04] MEDS: BLOOD SUGAR DIAGNOSTIC STRIP TEST SCH ×4 (07:54→21:10)
[2021-12-04] MEDS: HYDROCODONE/ACETAMINOPHEN 5/325MG TABLET PO PRN ×2 (07:55→22:55)
[2021-12-04 08:00] VITALS: BP 135/79
[2021-12-04] MEDS: INSULIN LISPRO 100 UNITS/ML SUBCUT SCH ×4 (08:02→21:00)
[2021-12-04] MEDS ORDERED: LANSOPRAZOLE 30MG DR CAPSULE PO SCH (09:00)
[2021-12-04] MEDS: LOPERAMIDE HCL 2MG CAPSULE PO PRN (09:07)
[2021-12-04] MEDS: LACTOBACILLUS GG CAPSULE PO SCH (09:07)
[2021-12-04] MEDS: PANTOPRAZOLE 40MG DR TABLET PO SCH (09:07)
[2021-12-04 12:00] VITALS: BP 143/80
[2021-12-04 16:00] VITALS: BP 128/73
[2021-12-04 20:00] VITALS: BP 138/74
[2021-12-04] MEDS: SODIUM POLYSTYRENE SULFONATE 15 G/60 ML BOT PO NR ×2 (21:08→21:10)
[2021-12-04] MEDS: EPOETIN ALFA-EPBX 4,000 UNIT/ML VIAL SUBCUT SCH (21:10)
[2021-12-05] VITALS: BP 134/67
[2021-12-05 04:00] VITALS: BP 121/67
[2021-12-05] MEDS: HYDROCODONE/ACETAMINOPHEN 5/325MG TABLET PO PRN (04:22)
[2021-12-05] MEDS: BLOOD SUGAR DIAGNOSTIC STRIP TEST SCH ×4 (06:54→21:00)
[2021-12-05 08:00] VITALS: BP 121/67
[2021-12-05] MEDS: LACTOBACILLUS GG CAPSULE PO SCH (09:41)
[2021-12-05] MEDS: PANTOPRAZOLE 40MG DR TABLET PO SCH (09:41)
[2021-12-05] MEDS: LOPERAMIDE HCL 2MG CAPSULE PO PRN (09:41)
[2021-12-05] MEDS: LACTAID PO SCH ×3 (09:43→18:14)
[2021-12-05] MEDS: INSULIN LISPRO 100 UNITS/ML SUBCUT SCH ×4 (10:00→21:00)
[2021-12-05 12:00] VITALS: BP 129/76
[2021-12-05 16:00] VITALS: BP 139/69
[2021-12-05 20:00] VITALS: BP 129/74
[2021-12-06] VITALS: BP 121/67
[2021-12-06 04:00] VITALS: BP 124/70
[2021-12-06] MEDS: LACTAID PO SCH ×3 (07:04→18:13)
[2021-12-06] MEDS: INSULIN LISPRO 100 UNITS/ML SUBCUT SCH ×3 (07:09→17:50)
[2021-12-06] MEDS: BLOOD SUGAR DIAGNOSTIC STRIP TEST SCH ×4 (07:11→21:00)
[2021-12-06 08:00] VITALS: BP 119/64
[2021-12-06] MEDS: LOPERAMIDE HCL 2MG CAPSULE PO PRN (08:36)
[2021-12-06] MEDS: LACTOBACILLUS GG CAPSULE PO SCH (08:36)
[2021-12-06] MEDS: PANTOPRAZOLE 40MG DR TABLET PO SCH (08:36)
[2021-12-06] MEDS: ACETAMINOPHEN 325MG TABLET PO PRN (08:42)
[2021-12-06 12:00] VITALS: BP 122/70
[2021-12-06 16:00] VITALS: BP 113/68
[2021-12-06 16:03] LABS: HEMATOCRIT. 26.5 % (42.0-52.0); HEMOGLOBIN. 8.5 g/dL (14.0-18.0); MEAN CORPUSCULAR HEMOGLOBIN 31.2 pg (28.0-32.0); MEAN CORPUSCULAR VOLUME 97.1 fL (80.0-94.0); MEAN PLATELET VOLUME 8.5 fl (7.4-10.4); PLATELET 243 x1000/uL (130-400); RED BLOOD CELL COUNT 2.73 mill/uL (4.7-6.1)
[2021-12-06] MEDS: HYDROCODONE/ACETAMINOPHEN 5/325MG TABLET PO PRN (18:14)
[2021-12-06 20:00] VITALS: BP 137/78
[2021-12-06 21:43] LABS: PLATELET ESTIMATE NORMAL
[2021-12-06] MEDS ORDERED: NALOXONE HCL 0.4MG/ML VIAL IV PRN (22:45)
[2021-12-07] VITALS: BP 135/73
[2021-12-07] MEDS: INSULIN LISPRO 100 UNITS/ML SUBCUT SCH ×5 (00:20→21:19)
[2021-12-07 04:00] VITALS: BP 144/81
[2021-12-07] MEDS: BLOOD SUGAR DIAGNOSTIC STRIP TEST SCH ×4 (07:12→20:29)
[2021-12-07] MEDS: LACTAID PO SCH ×3 (07:59→17:20)
[2021-12-07 08:00] VITALS: BP 143/73
[2021-12-07] MEDS: LACTOBACILLUS GG CAPSULE PO SCH (09:01)
[2021-12-07] MEDS: PANTOPRAZOLE 40MG DR TABLET PO SCH (09:01)
[2021-12-07] MEDS: HYDROCODONE/ACETAMINOPHEN 5/325MG TABLET PO PRN ×3 (09:10→20:30)
[2021-12-07 12:00] VITALS: BP 155/80
[2021-12-07] MEDS: LOPERAMIDE HCL 2MG CAPSULE PO PRN (12:40)
[2021-12-07 16:00] VITALS: BP 141/68
[2021-12-07 20:05] VITALS: BP 136/76
[2021-12-08] VITALS: BP 133/76
[2021-12-08 04:00] VITALS: BP 140/68
[2021-12-08] MEDS: HYDROCODONE/ACETAMINOPHEN 5/325MG TABLET PO PRN (06:10)
[2021-12-08] MEDS: BLOOD SUGAR DIAGNOSTIC STRIP TEST SCH ×4 (06:16→21:00)
[2021-12-08] MEDS: INSULIN LISPRO 100 UNITS/ML SUBCUT SCH ×4 (06:16→21:00)
[2021-12-08 08:00] VITALS: BP 141/78
[2021-12-08] MEDS: LOPERAMIDE HCL 2MG CAPSULE PO PRN (08:54)
[2021-12-08] MEDS: LACTAID PO SCH ×3 (08:54→18:22)
[2021-12-08] MEDS: LACTOBACILLUS GG CAPSULE PO SCH (08:54)
[2021-12-08] MEDS: PANTOPRAZOLE 40MG DR TABLET PO SCH (08:55)
[2021-12-08 10:30] LABS: HEMATOCRIT. 28.4 % (42.0-52.0); HEMOGLOBIN. 9.1 g/dL (14.0-18.0); MEAN CORPUSCULAR HEMOGLOBIN 30.9 pg (28.0-32.0); MEAN CORPUSCULAR VOLUME 96.1 fL (80.0-94.0); MEAN PLATELET VOLUME 8.8 fl (7.4-10.4); PLATELET 266 x1000/uL (130-400); RED BLOOD CELL COUNT 2.96 mill/uL (4.7-6.1); RED CELL DISTRIBUTION WIDTH 13.2 % (11.6-14.6)
[2021-12-08 12:00] VITALS: BP 132/91
[2021-12-08 16:00] VITALS: BP 143/74
[2021-12-08 18:53] LABS: PLATELET ESTIMATE NORMAL
[2021-12-08 20:00] VITALS: BP 146/77
[2021-12-09] VITALS: BP 146/74
[2021-12-09] MEDS: HYDROCODONE/ACETAMINOPHEN 5/325MG TABLET PO PRN ×2 (03:09→21:29)
[2021-12-09 04:00] VITALS: BP 144/80
[2021-12-09] MEDS: BLOOD SUGAR DIAGNOSTIC STRIP TEST SCH (06:22)
[2021-12-09] MEDS: LACTAID PO SCH ×3 (06:51→18:07)
[2021-12-09] MEDS: INSULIN LISPRO 100 UNITS/ML SUBCUT SCH (07:50)
[2021-12-09 08:00] VITALS: BP 144/74
[2021-12-09] MEDS: LACTOBACILLUS GG CAPSULE PO SCH (08:28)
[2021-12-09] MEDS: PANTOPRAZOLE 40MG DR TABLET PO SCH (08:28)
[2021-12-09] MEDS: LOPERAMIDE HCL 2MG CAPSULE PO PRN (08:29)
[2021-12-09 12:00] VITALS: BP 145/75
[2021-12-09] MEDS ORDERED: LOPERAMIDE HCL 2MG CAPSULE PO SCH (14:45)
[2021-12-09 16:00] VITALS: BP 156/71
[2021-12-09 20:35] VITALS: BP 158/88
[2021-12-10 01:03] VITALS: BP 131/71
[2021-12-10] MEDS ORDERED: DEXTROSE 50% WATER 50ML SYRINGE IV PRN (02:00)
[2021-12-10 04:52] VITALS: BP 149/79
[2021-12-10] MEDS: BLOOD SUGAR DIAGNOSTIC STRIP TEST SCH ×4 (06:27→21:00)
[2021-12-10] MEDS: HYDROCODONE/ACETAMINOPHEN 5/325MG TABLET PO PRN ×2 (06:28→21:03)
[2021-12-10] MEDS: LACTAID PO SCH ×3 (06:28→18:25)
[2021-12-10] MEDS: INSULIN LISPRO 100 UNITS/ML SUBCUT SCH ×4 (07:50→21:00)
[2021-12-10 08:00] VITALS: BP 132/71
[2021-12-10] MEDS: LACTOBACILLUS GG CAPSULE PO SCH (09:22)
[2021-12-10] MEDS: LOPERAMIDE HCL 2MG CAPSULE PO SCH (09:22)
[2021-12-10] MEDS: PANTOPRAZOLE 40MG DR TABLET PO SCH (09:22)
[2021-12-10 12:00] VITALS: BP 138/79
[2021-12-10 16:00] VITALS: BP 136/74
[2021-12-10 16:25] LABS: HEMOGLOBIN. 8.6 g/dL (14.0-18.0); MEAN CORPUSCULAR HEMOGLOBIN 29.9 pg (28.0-32.0); MEAN CORPUSCULAR VOLUME 93.7 fL (80.0-94.0); MEAN PLATELET VOLUME 9.2 fl (7.4-10.4); PLATELET 272 x1000/uL (130-400); RED BLOOD CELL COUNT 2.89 mill/uL (4.7-6.1); RED CELL DISTRIBUTION WIDTH 13.3 % (11.6-14.6)
[2021-12-10 20:00] VITALS: BP 150/72
[2021-12-10 23:36] LABS: PLATELET ESTIMATE NORMAL
[2021-12-11] VITALS: BP 141/78
[2021-12-11] MEDS: HYDROCODONE/ACETAMINOPHEN 5/325MG TABLET PO PRN ×2 (06:36→16:16)
[2021-12-11] MEDS: BLOOD SUGAR DIAGNOSTIC STRIP TEST SCH ×4 (06:44→21:00)
[2021-12-11] MEDS: INSULIN LISPRO 100 UNITS/ML SUBCUT SCH ×4 (06:45→21:52)
[2021-12-11 08:00] VITALS: BP 136/67
[2021-12-11 08:05] LABS: HEMATOCRIT. 25.3 % (42.0-52.0); HEMOGLOBIN. 8.2 g/dL (14.0-18.0); MEAN CORPUSCULAR HEMOGLOBIN 30.3 pg (28.0-32.0); MEAN CORPUSCULAR VOLUME 93.6 fL (80.0-94.0); MEAN PLATELET VOLUME 8.8 fl (7.4-10.4); PLATELET 262 x1000/uL (130-400); RED CELL DISTRIBUTION WIDTH 13.3 % (11.6-14.6)
[2021-12-11] MEDS: LACTAID PO SCH ×3 (08:54→17:49)
[2021-12-11 10:41] LABS: PLATELET ESTIMATE NORMAL
[2021-12-11 12:00] VITALS: BP 149/79
[2021-12-11] MEDS: PANTOPRAZOLE 40MG DR TABLET PO SCH (13:08)
[2021-12-11] MEDS: LOPERAMIDE HCL 2MG CAPSULE PO SCH (13:08)
[2021-12-11] MEDS: LACTOBACILLUS GG CAPSULE PO SCH (13:08)
[2021-12-11 16:00] VITALS: BP 137/80
[2021-12-11 20:00] VITALS: BP 148/80
[2021-12-11] MEDS: ACETAMINOPHEN 325MG TABLET PO PRN (21:51)
[2021-12-12] VITALS: BP 132/75
[2021-12-12 04:00] VITALS: BP 147/77
[2021-12-12] MEDS: ACETAMINOPHEN 325MG TABLET PO PRN ×2 (06:15→16:24)
[2021-12-12] MEDS: BLOOD SUGAR DIAGNOSTIC STRIP TEST SCH ×4 (06:23→20:30)
[2021-12-12 08:00] VITALS: BP 134/79
[2021-12-12] MEDS: PANTOPRAZOLE 40MG DR TABLET PO SCH (08:44)
[2021-12-12] MEDS: LOPERAMIDE HCL 2MG CAPSULE PO SCH (08:44)
[2021-12-12] MEDS: LACTOBACILLUS GG CAPSULE PO SCH (08:44)
[2021-12-12] MEDS: INSULIN LISPRO 100 UNITS/ML SUBCUT SCH ×4 (08:51→20:52)
[2021-12-12] MEDS: LACTAID PO SCH ×3 (08:57→17:20)
[2021-12-12 12:00] VITALS: BP 132/70
[2021-12-12 16:00] VITALS: BP 136/68
[2021-12-12] MEDS ORDERED: HYDROCODONE/ACETAMINOPHEN 5/325MG TABLET PO NR (20:15)
[2021-12-13 00:25] LABS: BASOPHILS % 0.4 % (0.0-2.0); EOSINOPHILS % 1.8 % (0.0-5.0); HEMATOCRIT. 26.3 % (42.0-52.0); HEMOGLOBIN. 8.3 g/dL (14.0-18.0); LYMPHOCYTES % 24.2 % (20.0-50.0); MEAN CORPUSCULAR HEMOGLOBIN 29.7 pg (28.0-32.0); MEAN CORPUSCULAR VOLUME 94.3 fL (80.0-94.0); MONOCYTES % 14.8 % (2.0-8.0); NEUTROPHILS % 58.8 % (40.0-76.0); PLATELET 279 x1000/uL (130-400); RED BLOOD CELL COUNT 2.79 mill/uL (4.7-6.1); RED CELL DISTRIBUTION WIDTH 13.5 % (11.6-14.6)
[2021-12-13] MEDS: HYDROCODONE/ACETAMINOPHEN 5/325MG TABLET PO PRN ×3 (01:46→17:35)
[2021-12-13] MEDS: INSULIN LISPRO 100 UNITS/ML SUBCUT SCH ×4 (07:50→21:00)
[2021-12-13 08:00] VITALS: BP 149/82
[2021-12-13] MEDS: BLOOD SUGAR DIAGNOSTIC STRIP TEST SCH ×4 (08:01→21:00)
[2021-12-13] MEDS: LACTOBACILLUS GG CAPSULE PO SCH (09:08)
[2021-12-13] MEDS: PANTOPRAZOLE 40MG DR TABLET PO SCH (09:08)
[2021-12-13] MEDS: LOPERAMIDE HCL 2MG CAPSULE PO SCH (09:08)
[2021-12-13] MEDS: LACTAID PO SCH ×3 (09:15→17:35)
[2021-12-13] MEDS ORDERED: INSULIN REGULAR (HUMULIN R) UD 100 UNITS/ML SYR IV SCH (10:00)
[2021-12-13 12:00] VITALS: BP 141/71
[2021-12-13] MEDS: DEXTROSE 50% WATER 50ML SYRINGE IV SCH ×2 (12:14→12:29)
[2021-12-13] MEDS: SODIUM BICARBONATE 8.4% 1 MEQ/ML 50ML SYR IV SCH ×2 (12:16→12:29)
[2021-12-13 16:00] VITALS: BP 149/83
[2021-12-13 20:43] LABS: BASOPHILS % 0.4 % (0.0-2.0); EOSINOPHILS % 2.2 % (0.0-5.0); HEMATOCRIT. 25.6 % (42.0-52.0); HEMOGLOBIN. 8.4 g/dL (14.0-18.0); MEAN CORPUSCULAR HEMOGLOBIN 30.2 pg (28.0-32.0); MEAN CORPUSCULAR VOLUME 92.3 fL (80.0-94.0); MEAN PLATELET VOLUME 9.1 fl (7.4-10.4); MONOCYTES % 13.4 % (2.0-8.0); PLATELET 297 x1000/uL (130-400); RED BLOOD CELL COUNT 2.77 mill/uL (4.7-6.1); RED CELL DISTRIBUTION WIDTH 13.4 % (11.6-14.6)
[2021-12-14] MEDS: HYDROCODONE/ACETAMINOPHEN 5/325MG TABLET PO PRN ×5 (00:16→23:59)
[2021-12-14] MEDS: ACETAMINOPHEN 325MG TABLET PO PRN (03:54)
[2021-12-14] MEDS: BLOOD SUGAR DIAGNOSTIC STRIP TEST SCH ×4 (07:19→21:00)
[2021-12-14] MEDS: LACTAID PO SCH ×3 (07:43→17:17)
[2021-12-14] MEDS: INSULIN LISPRO 100 UNITS/ML SUBCUT SCH ×4 (07:50→21:00)
[2021-12-14 08:00] VITALS: BP 141/81
[2021-12-14] MEDS: LACTOBACILLUS GG CAPSULE PO SCH (09:18)
[2021-12-14] MEDS: LOPERAMIDE HCL 2MG CAPSULE PO SCH (09:18)
[2021-12-14] MEDS: PANTOPRAZOLE 40MG DR TABLET PO SCH (09:18)
[2021-12-14 12:00] VITALS: BP 150/81
[2021-12-14 16:00] VITALS: BP 151/79
[2021-12-14 20:09] VITALS: BP 129/80
[2021-12-15] VITALS: BP 142/64
[2021-12-15 04:00] VITALS: BP 145/92
[2021-12-15] MEDS: HYDROCODONE/ACETAMINOPHEN 5/325MG TABLET PO PRN ×3 (06:44→21:27)
[2021-12-15] MEDS: BLOOD SUGAR DIAGNOSTIC STRIP TEST SCH ×4 (06:49→21:27)
[2021-12-15] MEDS: LACTAID PO SCH ×3 (06:59→18:27)
[2021-12-15] MEDS: INSULIN LISPRO 100 UNITS/ML SUBCUT SCH ×4 (07:50→21:00)
[2021-12-15 08:00] VITALS: BP 146/84
[2021-12-15] MEDS: LACTOBACILLUS GG CAPSULE PO SCH (10:30)
[2021-12-15] MEDS: PANTOPRAZOLE 40MG DR TABLET PO SCH (10:30)
[2021-12-15] MEDS: LOPERAMIDE HCL 2MG CAPSULE PO SCH (10:31)
[2021-12-15 20:00] VITALS: BP 147/78
[2021-12-16] VITALS: BP 144/71
[2021-12-16 04:00] VITALS: BP 145/93
[2021-12-16] MEDS: HYDROCODONE/ACETAMINOPHEN 5/325MG TABLET PO PRN ×2 (06:53→18:31)
[2021-12-16 08:00] VITALS: BP 148/75
[2021-12-16] MEDS: BLOOD SUGAR DIAGNOSTIC STRIP TEST SCH ×4 (08:03→21:00)
[2021-12-16] MEDS: LACTAID PO SCH ×3 (08:44→18:18)
[2021-12-16] MEDS: PANTOPRAZOLE 40MG DR TABLET PO SCH (08:45)
[2021-12-16] MEDS: LACTOBACILLUS GG CAPSULE PO SCH ×2 (08:45→13:26)
[2021-12-16] MEDS: LOPERAMIDE HCL 2MG CAPSULE PO SCH (08:45)
[2021-12-16] MEDS: INSULIN LISPRO 100 UNITS/ML SUBCUT SCH ×5 (08:50→21:00)
[2021-12-16 12:00] VITALS: BP 135/53
[2021-12-16 16:00] VITALS: BP 150/75
[2021-12-17] MEDS: HYDROCODONE/ACETAMINOPHEN 5/325MG TABLET PO PRN ×3 (01:16→15:31)
[2021-12-17] MEDS: BLOOD SUGAR DIAGNOSTIC STRIP TEST SCH ×4 (06:55→21:50)
[2021-12-17] MEDS: LACTAID PO SCH ×3 (07:04→17:45)
[2021-12-17] MEDS: INSULIN LISPRO 100 UNITS/ML SUBCUT SCH ×4 (07:50→21:00)
[2021-12-17 08:00] VITALS: BP 150/79
[2021-12-17] MEDS: LOPERAMIDE HCL 2MG CAPSULE PO SCH (09:45)
[2021-12-17] MEDS: PANTOPRAZOLE 40MG DR TABLET PO SCH (09:45)
[2021-12-17] MEDS: LACTOBACILLUS GG CAPSULE PO SCH (09:45)
[2021-12-17 20:00] VITALS: BP 124/65
[2021-12-17] MEDS ORDERED: EPOETIN ALFA-EPBX 4,000 UNIT/ML VIAL SUBCUT SCH (21:00)
[2021-12-18] VITALS: BP 142/53
[2021-12-18] MEDS: HYDROCODONE/ACETAMINOPHEN 5/325MG TABLET PO PRN ×3 (01:52→21:37)
[2021-12-18 02:27] LABS: HEMATOCRIT. 23.9 % (42.0-52.0); HEMOGLOBIN. 7.7 g/dL (14.0-18.0); MEAN CORPUSCULAR HEMOGLOBIN 29.2 pg (28.0-32.0); MEAN PLATELET VOLUME 8.8 fl (7.4-10.4); PLATELET 282 x1000/uL (130-400); RED BLOOD CELL COUNT 2.62 mill/uL (4.7-6.1); RED CELL DISTRIBUTION WIDTH 13.9 % (11.6-14.6)
[2021-12-18 03:55] LABS: PLATELET ESTIMATE NORMAL
[2021-12-18 04:00] VITALS: BP 135/66
[2021-12-18] MEDS: LACTAID PO SCH ×3 (07:02→17:13)
[2021-12-18] MEDS: BLOOD SUGAR DIAGNOSTIC STRIP TEST SCH ×4 (07:02→21:37)
[2021-12-18] MEDS: INSULIN LISPRO 100 UNITS/ML SUBCUT SCH ×4 (07:50→21:00)
[2021-12-18 08:00] VITALS: BP 149/78
[2021-12-18] MEDS: PANTOPRAZOLE 40MG DR TABLET PO SCH (08:31)
[2021-12-18] MEDS: LOPERAMIDE HCL 2MG CAPSULE PO SCH (08:31)
[2021-12-18] MEDS: LACTOBACILLUS GG CAPSULE PO SCH (08:33)
[2021-12-18 12:00] VITALS: BP 150/77
[2021-12-18 16:00] VITALS: BP 140/77
[2021-12-18 20:00] VITALS: BP 151/85
[2021-12-18 20:17] LABS: HEMATOCRIT. 23.6 % (42.0-52.0); HEMOGLOBIN. 7.5 g/dL (14.0-18.0); MEAN CORPUSCULAR HEMOGLOBIN 29.6 pg (28.0-32.0); MEAN CORPUSCULAR VOLUME 93.2 fL (80.0-94.0); MEAN PLATELET VOLUME 9.3 fl (7.4-10.4); PLATELET 289 x1000/uL (130-400); RED BLOOD CELL COUNT 2.53 mill/uL (4.7-6.1); RED CELL DISTRIBUTION WIDTH 13.9 % (11.6-14.6)
[2021-12-18 20:56] LABS: PLATELET ESTIMATE NORMAL
[2021-12-19 04:00] VITALS: BP 137/76
[2021-12-19] MEDS: BLOOD SUGAR DIAGNOSTIC STRIP TEST SCH ×4 (06:51→21:00)
[2021-12-19] MEDS: HYDROCODONE/ACETAMINOPHEN 5/325MG TABLET PO PRN ×3 (06:57→22:35)
[2021-12-19] MEDS: LACTAID PO SCH ×3 (07:01→17:45)
[2021-12-19] MEDS: INSULIN LISPRO 100 UNITS/ML SUBCUT SCH ×4 (07:50→21:00)
[2021-12-19] MEDS: PANTOPRAZOLE 40MG DR TABLET PO SCH (08:31)
[2021-12-19] MEDS: LACTOBACILLUS GG CAPSULE PO SCH (08:31)
[2021-12-19] MEDS: LOPERAMIDE HCL 2MG CAPSULE PO SCH (08:31)
[2021-12-19 20:00] VITALS: BP 160/83
[2021-12-20] MEDS: LACTAID PO SCH ×3 (07:12→17:20)
[2021-12-20] MEDS: BLOOD SUGAR DIAGNOSTIC STRIP TEST SCH ×4 (07:20→21:00)
[2021-12-20] MEDS: INSULIN LISPRO 100 UNITS/ML SUBCUT SCH ×4 (07:50→21:00)
[2021-12-20] MEDS: LACTOBACILLUS GG CAPSULE PO SCH (09:11)
[2021-12-20] MEDS: PANTOPRAZOLE 40MG DR TABLET PO SCH (09:13)
[2021-12-20] MEDS: HYDROCODONE/ACETAMINOPHEN 5/325MG TABLET PO PRN ×2 (09:13→22:05)
[2021-12-20] MEDS: LOPERAMIDE HCL 2MG CAPSULE PO SCH (09:13)
[2021-12-20 09:19] LABS: HEMATOCRIT 23.2 % (42.0-52.0); HEMOGLOBIN 7.4 g/dL (14.0-18.0); MEAN CORPUSCULAR HEMOGLOBIN 29.3 pg (28.0-32.0); MEAN CORPUSCULAR VOLUME 91.6 fL (80.0-94.0); PLATELET 261 x1000/uL (130-400); RED BLOOD CELL COUNT 2.53 mill/uL (4.7-6.1)
[2021-12-20 20:00] VITALS: BP 137/77
[2021-12-20] MEDS ORDERED: EPOETIN ALFA-EPBX 10,000 UNIT/ML VIAL SUBCUT SCH (21:00)
[2021-12-21] VITALS: BP 135/73
[2021-12-21 04:00] VITALS: BP 136/71
[2021-12-21] MEDS: HYDROCODONE/ACETAMINOPHEN 5/325MG TABLET PO PRN ×3 (07:22→22:14)
[2021-12-21] MEDS: BLOOD SUGAR DIAGNOSTIC STRIP TEST SCH ×4 (07:22→21:17)
[2021-12-21] MEDS: INSULIN LISPRO 100 UNITS/ML SUBCUT SCH ×4 (07:22→21:00)
[2021-12-21] MEDS: LACTAID PO SCH ×3 (07:23→18:24)
[2021-12-21 08:00] VITALS: BP 134/71
[2021-12-21] MEDS: LOPERAMIDE HCL 2MG CAPSULE PO SCH (08:09)
[2021-12-21] MEDS: PANTOPRAZOLE 40MG DR TABLET PO SCH (08:10)
[2021-12-21 12:00] VITALS: BP 144/78
[2021-12-21 16:00] VITALS: BP 141/77
[2021-12-21 20:00] VITALS: BP 133/77
[2021-12-21] MEDS: EPOETIN ALFA-EPBX 10,000 UNIT/ML VIAL SUBCUT SCH (21:00)
[2021-12-22] VITALS (7 sets, daily range): BP systolic 121–144; BP diastolic 62–80
[2021-12-22] MEDS: HYDROCODONE/ACETAMINOPHEN 5/325MG TABLET PO PRN ×2 (05:21→17:49)
[2021-12-22] MEDS: BLOOD SUGAR DIAGNOSTIC STRIP TEST SCH ×4 (07:20→21:00)
[2021-12-22] MEDS: LACTAID PO SCH ×3 (08:31→17:45)
[2021-12-22] MEDS: PANTOPRAZOLE 40MG DR TABLET PO SCH (08:31)
[2021-12-22] MEDS: LOPERAMIDE HCL 2MG CAPSULE PO SCH (08:31)
[2021-12-22] MEDS: INSULIN LISPRO 100 UNITS/ML SUBCUT SCH ×4 (08:59→21:00)
[2021-12-23] MEDS: HYDROCODONE/ACETAMINOPHEN 5/325MG TABLET PO PRN (00:18)
[2021-12-23] MEDS: BLOOD SUGAR DIAGNOSTIC STRIP TEST SCH ×4 (07:20→21:00)
[2021-12-23] MEDS: LACTAID PO SCH ×3 (07:20→18:14)
[2021-12-23] MEDS: INSULIN LISPRO 100 UNITS/ML SUBCUT SCH ×4 (07:50→21:00)
[2021-12-23 08:00] VITALS: BP 128/57
[2021-12-23] MEDS: LOPERAMIDE HCL 2MG CAPSULE PO SCH (09:00)
[2021-12-23] MEDS: PANTOPRAZOLE 40MG DR TABLET PO SCH (09:00)
[2021-12-23 12:00] VITALS: BP 135/65
[2021-12-23 16:00] VITALS: BP 118/73
[2021-12-23 18:58] LABS: HEMATOCRIT. 21.5 % (42.0-52.0); MEAN CORPUSCULAR HEMOGLOBIN 29.5 pg (28.0-32.0); MEAN PLATELET VOLUME 10.1 fl (7.4-10.4); PLATELET 257 x1000/uL (130-400); RED BLOOD CELL COUNT 2.31 mill/uL (4.7-6.1)
[2021-12-23 19:03] LABS: HEMOGLOBIN. 6.8 g/dL (14.0-18.0)
[2021-12-23 19:37] LABS: PLATELET ESTIMATE NORMAL
[2021-12-23 20:00] VITALS: BP 124/72
[2021-12-23] MEDS: EPOETIN ALFA-EPBX 10,000 UNIT/ML VIAL SUBCUT SCH (21:00)
[2021-12-23] MEDS ORDERED: CEFTRIAXONE 1,000 MG in DEXTROSE 5% WATER 50 ML IV NR (22:00)
[2021-12-23] MEDS ORDERED: GENTAMICIN 60MG PREMIX 50 ML IV NR (22:00)
[2021-12-23] MEDS ORDERED: HYDROCODONE/ACETAMINOPHEN 5/325MG TABLET PO NR (23:45)
[2021-12-24] VITALS (14 sets, daily range): BP systolic 130–154; BP diastolic 63–86
[2021-12-24] MEDS ORDERED: VANCOMYCIN 1GM PMX (XELLIA) 200 ML IV NR
[2021-12-24] MEDS: BLOOD SUGAR DIAGNOSTIC STRIP TEST SCH ×4 (07:00→21:28)
[2021-12-24] MEDS: LACTAID PO SCH ×3 (07:20→17:20)
[2021-12-24] MEDS: INSULIN LISPRO 100 UNITS/ML SUBCUT SCH ×4 (07:50→21:00)
[2021-12-24] MEDS: PANTOPRAZOLE 40MG DR TABLET PO SCH (09:44)
[2021-12-24] MEDS: LOPERAMIDE HCL 2MG CAPSULE PO SCH (09:45)
[2021-12-24] MEDS: HYDROCODONE/ACETAMINOPHEN 5/325MG TABLET PO PRN (21:45)
[2021-12-25] VITALS: BP 146/80
[2021-12-25 04:00] VITALS: BP 132/71
[2021-12-25] MEDS: BLOOD SUGAR DIAGNOSTIC STRIP TEST SCH ×4 (06:45→21:35)
[2021-12-25] MEDS: INSULIN LISPRO 100 UNITS/ML SUBCUT SCH ×4 (07:50→21:00)
[2021-12-25 08:00] VITALS: BP 131/68
[2021-12-25] MEDS: LACTAID PO SCH ×3 (08:30→17:25)
[2021-12-25] MEDS: LOPERAMIDE HCL 2MG CAPSULE PO SCH (08:30)
[2021-12-25] MEDS: PANTOPRAZOLE 40MG DR TABLET PO SCH (08:30)
[2021-12-25] MEDS: HYDROCODONE/ACETAMINOPHEN 5/325MG TABLET PO PRN ×2 (08:31→17:25)
[2021-12-25 12:00] VITALS: BP 157/83
[2021-12-25 12:06] LABS: HEMATOCRIT 25.6 % (42.0-52.0); HEMOGLOBIN 8.3 g/dL (14.0-18.0)
[2021-12-25 16:00] VITALS: BP 142/75
[2021-12-25 20:00] VITALS: BP 140/71
[2021-12-25] MEDS: EPOETIN ALFA-EPBX 10,000 UNIT/ML VIAL SUBCUT SCH (21:38)
[2021-12-26] VITALS: BP 147/64
[2021-12-26] MEDS ORDERED: ACETAMINOPHEN 325MG TABLET PO PRN (03:00)
[2021-12-26] MEDS: HYDROCODONE/ACETAMINOPHEN 5/325MG TABLET PO PRN ×3 (03:10→16:08)
[2021-12-26 04:00] VITALS: BP 135/61
[2021-12-26] MEDS: INSULIN LISPRO 100 UNITS/ML SUBCUT SCH ×4 (06:53→20:34)
[2021-12-26] MEDS: BLOOD SUGAR DIAGNOSTIC STRIP TEST SCH ×4 (06:53→20:34)
[2021-12-26 08:00] VITALS: BP 142/75
[2021-12-26] MEDS: LOPERAMIDE HCL 2MG CAPSULE PO SCH (08:12)
[2021-12-26] MEDS: PANTOPRAZOLE 40MG DR TABLET PO SCH (08:12)
[2021-12-26] MEDS: LACTAID PO SCH ×3 (08:12→17:31)
[2021-12-26 12:00] VITALS: BP 140/73
[2021-12-26 16:00] VITALS: BP 140/66
[2021-12-26 20:00] VITALS: BP 147/81
[2021-12-27] VITALS: BP 140/75
[2021-12-27] MEDS: HYDROCODONE/ACETAMINOPHEN 5/325MG TABLET PO PRN ×4 (00:15→22:12)
[2021-12-27 01:50] LABS: HEMATOCRIT. 30.4 % (42.0-52.0); MEAN CORPUSCULAR HEMOGLOBIN 29.3 pg (28.0-32.0); MEAN CORPUSCULAR VOLUME 89.2 fL (80.0-94.0); MEAN PLATELET VOLUME 9.2 fl (7.4-10.4); PLATELET 324 x1000/uL (130-400); RED CELL DISTRIBUTION WIDTH 15.3 % (11.6-14.6)
[2021-12-27 03:10] LABS: PLATELET ESTIMATE NORMAL
[2021-12-27 04:00] VITALS: BP 137/76
[2021-12-27] MEDS: LACTAID PO SCH ×3 (06:45→16:51)
[2021-12-27] MEDS: BLOOD SUGAR DIAGNOSTIC STRIP TEST SCH ×4 (06:46→21:00)
[2021-12-27] MEDS: INSULIN LISPRO 100 UNITS/ML SUBCUT SCH ×4 (07:50→21:00)
[2021-12-27 08:00] VITALS: BP 132/75
[2021-12-27] MEDS: PANTOPRAZOLE 40MG DR TABLET PO SCH (08:33)
[2021-12-27] MEDS: LOPERAMIDE HCL 2MG CAPSULE PO SCH (08:33)
[2021-12-27 12:00] VITALS: BP 146/79
[2021-12-27 16:00] VITALS: BP 151/78
[2021-12-27 20:00] VITALS: BP 141/75
[2021-12-28] VITALS: BP 130/66
[2021-12-28 04:00] VITALS: BP 140/77
[2021-12-28] MEDS: HYDROCODONE/ACETAMINOPHEN 5/325MG TABLET PO PRN ×3 (04:30→22:58)
[2021-12-28] MEDS: BLOOD SUGAR DIAGNOSTIC STRIP TEST SCH ×4 (06:34→21:00)
[2021-12-28] MEDS: LACTAID PO SCH ×3 (06:42→17:43)
[2021-12-28] MEDS: INSULIN LISPRO 100 UNITS/ML SUBCUT SCH ×4 (07:50→21:00)
[2021-12-28 08:00] VITALS: BP 138/76
[2021-12-28] MEDS: LOPERAMIDE HCL 2MG CAPSULE PO SCH (08:25)
[2021-12-28] MEDS: PANTOPRAZOLE 40MG DR TABLET PO SCH (08:25)
[2021-12-28 12:00] VITALS: BP 145/75
[2021-12-28 16:00] VITALS: BP 152/87
[2021-12-29 04:00] VITALS: BP 143/75
[2021-12-29] MEDS: LACTAID PO SCH (06:26)
[2021-12-29] MEDS: HYDROCODONE/ACETAMINOPHEN 5/325MG TABLET PO PRN (06:27)
[2021-12-29] MEDS: BLOOD SUGAR DIAGNOSTIC STRIP TEST SCH (07:33)
[2021-12-29 08:00] VITALS: BP 139/74
[2021-12-29 12:00] VITALS: BP 155/84
[2021-12-29 14:46] VITALS: BP 155/84
[2021-12-29 16:00] VITALS: BP 174/92
== END 2021-12-29 16:02 | disposition home or self-care (01) | DRG 853 ==
LOC: ER 19:07 → MICUSO 11-10 01:26 → 8WST 11-10 10:36 → 6EST 11-24 12:08
PROVIDERS: ADMIT Internal Medicine; ATTEND Internal Medicine
PROC: 5A1D70Z Performance of Urinary Filtration, Intermittent, Less than 6 Hours Per Day (ICD-10-PCS; 2021-11-10)
PROC: 5A1D70Z Performance of Urinary Filtration, Intermittent, Less than 6 Hours Per Day (ICD-10-PCS; 2021-11-12)
PROC: 5A1D70Z Performance of Urinary Filtration, Intermittent, Less than 6 Hours Per Day (ICD-10-PCS; 2021-11-15)
PROC: 03150JD Bypass Right Axillary Artery to Upper Arm Vein with Synthetic Substitute, Open Approach (ICD-10-PCS; 2021-11-16)
PROC: 5A1D70Z Performance of Urinary Filtration, Intermittent, Less than 6 Hours Per Day (ICD-10-PCS; 2021-11-17)
PROC: 5A1D70Z Performance of Urinary Filtration, Intermittent, Less than 6 Hours Per Day (ICD-10-PCS; principal; 2021-11-21)
PROC: 0DB78ZX Excision of Stomach, Pylorus, Via Natural or Artificial Opening Endoscopic, Diagnostic (ICD-10-PCS; 2021-11-22)
PROC: 5A1D70Z Performance of Urinary Filtration, Intermittent, Less than 6 Hours Per Day (ICD-10-PCS; 2021-11-23)
PROC: 5A1D70Z Performance of Urinary Filtration, Intermittent, Less than 6 Hours Per Day (ICD-10-PCS; 2021-11-25)
PROC: 5A1D70Z Performance of Urinary Filtration, Intermittent, Less than 6 Hours Per Day (ICD-10-PCS; 2021-11-27)
PROC: 5A1D70Z Performance of Urinary Filtration, Intermittent, Less than 6 Hours Per Day (ICD-10-PCS; 2021-11-30)
PROC: 5A1D70Z Performance of Urinary Filtration, Intermittent, Less than 6 Hours Per Day (ICD-10-PCS; 2021-12-02)
PROC: 5A1D70Z Performance of Urinary Filtration, Intermittent, Less than 6 Hours Per Day (ICD-10-PCS; 2021-12-05)
PROC: 5A1D70Z Performance of Urinary Filtration, Intermittent, Less than 6 Hours Per Day (ICD-10-PCS; 2021-12-07)
PROC: 5A1D70Z Performance of Urinary Filtration, Intermittent, Less than 6 Hours Per Day (ICD-10-PCS; 2021-12-09)
PROC: 5A1D70Z Performance of Urinary Filtration, Intermittent, Less than 6 Hours Per Day (ICD-10-PCS; 2021-12-11)
PROC: 5A1D70Z Performance of Urinary Filtration, Intermittent, Less than 6 Hours Per Day (ICD-10-PCS; 2021-12-13)
PROC: 5A1D70Z Performance of Urinary Filtration, Intermittent, Less than 6 Hours Per Day (ICD-10-PCS; 2021-12-15)
PROC: 5A1D70Z Performance of Urinary Filtration, Intermittent, Less than 6 Hours Per Day (ICD-10-PCS; 2021-12-17)
PROC: 5A1D70Z Performance of Urinary Filtration, Intermittent, Less than 6 Hours Per Day (ICD-10-PCS; 2021-12-21)
PROC: 5A1D70Z Performance of Urinary Filtration, Intermittent, Less than 6 Hours Per Day (ICD-10-PCS; 2021-12-23)
PROC: 30233N1 Transfusion of Nonautologous Red Blood Cells into Peripheral Vein, Percutaneous Approach (ICD-10-PCS; 2021-12-24)
PROC: 5A1D70Z Performance of Urinary Filtration, Intermittent, Less than 6 Hours Per Day (ICD-10-PCS; 2021-12-25)
PROC: 5A1D70Z Performance of Urinary Filtration, Intermittent, Less than 6 Hours Per Day (ICD-10-PCS; 2021-12-28)
DX: A41.9 Sepsis, unspecified organism (principal); E43 Unspecified severe protein-calorie malnutrition; N18.6 End stage renal disease; I12.0 Hypertensive chronic kidney disease with stage 5 chronic kidney disease or end stage renal disease; E10.52 Type 1 diabetes mellitus with diabetic peripheral angiopathy with gangrene; T82.898A Other specified complication of vascular prosthetic devices, implants and grafts, initial encounter; D62 Acute posthemorrhagic anemia; M79.662 Pain in left lower leg; Z99.2 Dependence on renal dialysis; K52.9 Noninfective gastroenteritis and colitis, unspecified; D53.9 Nutritional anemia, unspecified; E87.5 Hyperkalemia; R36.9 Urethral discharge, unspecified; K29.60 Other gastritis without bleeding; D63.1 Anemia in chronic kidney disease; E10.65 Type 1 diabetes mellitus with hyperglycemia; K29.70 Gastritis, unspecified, without bleeding; E10.22 Type 1 diabetes mellitus with diabetic chronic kidney disease; Y83.2 Surgical operation with anastomosis, bypass or graft as the cause of abnormal reaction of the patient, or of later complication, without mention of misadventure at the time of the procedure; Z20.822 Contact with and (suspected) exposure to COVID-19; E73.9 Lactose intolerance, unspecified; Z89.512 Acquired absence of left leg below knee; Z91.81 History of falling; Z89.612 Acquired absence of left leg above knee; Z79.4 Long term (current) use of insulin; Y92.89 Other specified places as the place of occurrence of the external cause; Z91.19 Patient's noncompliance with other medical treatment and regimen; Z79.82 Long term (current) use of aspirin; Z87.891 Personal history of nicotine dependence; Z68.24 Body mass index [BMI] 24.0-24.9, adult
CPT/HCPCS: 36415; 73030; 73502; 73552; 74176; 80048; 80053; 80202; 82270; 82607; 82728; 82746; 82962; 83036; 83540; 83550; 84132; 84145; 85014; 85018; 85025; 85027; 85044; 86705; 86709; 86803; 86850; 86900; 86920; 87015; 87045; 87077; 87186; 87340; 87426; 87427; 87449; 87493; 88305; 88312; 88313; 93922; 97110; 97112; 97116; 97162; 97164; 97166; 97168; 97530; 97535; 99285; C1768; C9113; J0610; J0692; J0696; J0885; J1580; J1644; J1815; J1885; J2250; J2270; J2370; J2543; J2597; J2704; J2720; J3010; J3370; J3490; J7030; J7060; P9016; Q9963

== ENCOUNTER → 2022-01-24 | Outpatient (CLI) | payer MEDICARE, MEDICAID | END | disposition home or self-care (01) | LOC: RAD 14:29 | PROVIDERS: ATTEND Internal Medicine Nephrology | DX: M89.541 Osteolysis, right hand (principal); M25.841 Other specified joint disorders, right hand; I96 Gangrene, not elsewhere classified | CPT/HCPCS: 73120 ==

== ENCOUNTER 2022-03-03 20:02 | Inpatient (IN) | payer MEDICARE, MEDICAID ==
[~2022-03-03] VITALS: Ht 172.7 cm; Wt 64.4 kg
[2022-03-03] MEDS ORDERED: MORPHINE SULFATE 4 MG/ML CPJ (NOT FOR IM USE) IV STA (21:20)
[2022-03-03] MEDS ORDERED: ONDANSETRON HCL 4MG/2ML INJ IV STA (21:20)
[2022-03-03] MEDS ORDERED: VANCOMYCIN 1G PREMIX 200 ML IV ONE (21:30)
[2022-03-03] MEDS ORDERED: CLINDAMYCIN 600MG PREMIX 50 ML IV NR (21:30)
[2022-03-03] MEDS ORDERED: CLINDAMYCIN 600 MG in DEXTROSE 5% WATER 50 ML IV ONE (21:30)
[2022-03-03] MEDS ORDERED: SODIUM CHLORIDE 0.9% 500 ML IV ONE (21:30)
[2022-03-03] MEDS ORDERED: PIPERACILLIN/TAZ 3.375G PREMIX 50 ML IV ONE (21:30)
[2022-03-03] MEDS ORDERED: MORPHINE SULFATE 4 MG/ML CPJ (NOT FOR IM USE) IV NR (21:45)
[2022-03-03] MEDS ORDERED: ONDANSETRON HCL 4MG/2ML INJ IV NR (21:45)
[2022-03-03] MEDS ORDERED: VANCOMYCIN 1G PREMIX 200 ML IV NR (21:45)
[2022-03-03] MEDS ORDERED: PIPERACILLIN/TAZ 3.375G PREMIX 50 ML IV NR (21:45)
[2022-03-04] VITALS (72 sets, daily range): BP systolic 61–143; BP diastolic 20–100
[2022-03-04 00:11] LABS: HEMATOCRIT. 25.2 % (42.0-52.0); MEAN CORPUSCULAR HEMOGLOBIN 28.3 pg (28.0-32.0); MEAN CORPUSCULAR VOLUME 89.1 fL (80.0-94.0); MEAN PLATELET VOLUME 9.3 fl (7.4-10.4); PLATELET 292 x1000/uL (130-400); RED BLOOD CELL COUNT 2.83 mill/uL (4.7-6.1); RED CELL DISTRIBUTION WIDTH 17.5 % (11.6-14.6)
[2022-03-04 00:18] LABS: CHLORIDE 95 mEq/L (98-107)
[2022-03-04] MEDS ORDERED: SODIUM CHLORIDE 0.9% 500 ML IV ONE (01:00)
[2022-03-04] MEDS ORDERED: NOREPINEPHRINE 8MG/250ML PMX 250 ML IV STA (01:42)
[2022-03-04 04:17] LABS: PLATELET ESTIMATE NORMAL
[2022-03-04] MEDS: BLOOD SUGAR DIAGNOSTIC STRIP TEST SCH ×4 (06:30→21:09)
[2022-03-04] MEDS ORDERED: DEXTROSE 50% WATER 50ML SYRINGE IV PRN (06:30)
[2022-03-04] MEDS: INSULIN LISPRO 100 UNITS/ML SUBCUT SCH ×4 (07:41→21:08)
[2022-03-04] MEDS ORDERED: LIDOCAINE HCL/PF 1% 10 MG/ML 5ML VIAL ONE (08:10)
[2022-03-04] MEDS: PANTOPRAZOLE SODIUM 40 MG/VIAL IV SCH (09:42)
[2022-03-04] MEDS: PIPERACILLIN/TAZOBACTAM 3.375 G in DEXTROSE 5% WATER 50 ML IV SCH ×2 (09:42→21:09)
[2022-03-04] MEDS: HEPARIN 5000 UNITS/ML VIAL SUBCUT SCH ×2 (09:43→21:07)
[2022-03-04 11:33] LABS: HEMATOCRIT. 26.3 % (42.0-52.0); HEMOGLOBIN. 8.4 g/dL (14.0-18.0); MEAN CORPUSCULAR HEMOGLOBIN 28.2 pg (28.0-32.0); MEAN CORPUSCULAR VOLUME 88.4 fL (80.0-94.0); MEAN PLATELET VOLUME 9.6 fl (7.4-10.4); PLATELET 307 x1000/uL (130-400); RED BLOOD CELL COUNT 2.97 mill/uL (4.7-6.1); RED CELL DISTRIBUTION WIDTH 18.1 % (11.6-14.6)
[2022-03-04 11:44] LABS: PHOSPHORUS 5.1 mg/dL (2.5-4.9)
[2022-03-04] MEDS: NOREPINEPHRINE 8 MG in DEXT 5% WATER 242 ML IV PRN ×2 (11:44→19:56)
[2022-03-04] MEDS ORDERED: PIPERACILLIN/TAZOBACTAM 3.375 G in DEXTROSE 5% WATER 50 ML IV SCH (12:00)
[2022-03-04 12:38] LABS: PLATELET ESTIMATE NORMAL
[2022-03-04 15:32] LABS: HEPATITIS B SURFACE ANTIGEN NEGATIVE
[2022-03-04] MEDS ORDERED: PHENYLEPHRINE 50 MG in DEXT 5% WATER 245 ML IV PRN (18:45)
[2022-03-04] MEDS: EPOETIN ALFA-EPBX 4,000 UNIT/ML VIAL SUBCUT SCH (21:07)
[2022-03-05] VITALS (83 sets, daily range): BP systolic 37–167; BP diastolic 13–93
[2022-03-05] MEDS: BLOOD SUGAR DIAGNOSTIC STRIP TEST SCH ×4 (05:06→20:54)
[2022-03-05] MEDS: SODIUM HYPOCHLORITE 0.125% 473ML SOLUTION TOP SCH ×3 (06:29→21:08)
[2022-03-05] MEDS: INSULIN LISPRO 100 UNITS/ML SUBCUT SCH ×4 (06:30→21:08)
[2022-03-05] MEDS: PIPERACILLIN/TAZOBACTAM 3.375 G in DEXTROSE 5% WATER 50 ML IV SCH ×2 (09:24→21:07)
[2022-03-05] MEDS: PANTOPRAZOLE SODIUM 40 MG/VIAL IV SCH (09:24)
[2022-03-05] MEDS: HEPARIN 5000 UNITS/ML VIAL SUBCUT SCH ×2 (09:24→21:06)
[2022-03-05] MEDS ORDERED: VANCOMYCIN 750MG PREMIX 150 ML IV SCH (10:00)
[2022-03-05 16:13] LABS: INR 1.5; PROTHROMBIN TIME 15.6 sec (9.6-11.0)
[2022-03-05] MEDS: NOREPINEPHRINE 32 MG in DEXT 5% WATER 218 ML IV PRN (19:25)
[2022-03-06] VITALS (73 sets, daily range): BP systolic 45–149; BP diastolic 12–129
[2022-03-06 04:48] LABS: HEMATOCRIT 27.9 % (42.0-52.0); HEMOGLOBIN 8.8 g/dL (14.0-18.0); MEAN CORPUSCULAR HEMOGLOBIN 28.6 pg (28.0-32.0); MEAN CORPUSCULAR VOLUME 90.6 fL (80.0-94.0); PLATELET 344 x1000/uL (130-400); RED BLOOD CELL COUNT 3.08 mill/uL (4.7-6.1); RED CELL DISTRIBUTION WIDTH 17.4 % (11.6-14.6)
[2022-03-06] MEDS: BLOOD SUGAR DIAGNOSTIC STRIP TEST SCH ×4 (05:45→20:54)
[2022-03-06] MEDS: INSULIN LISPRO 100 UNITS/ML SUBCUT SCH ×4 (06:23→20:55)
[2022-03-06] MEDS: PANTOPRAZOLE SODIUM 40 MG/VIAL IV SCH (08:45)
[2022-03-06] MEDS: PIPERACILLIN/TAZOBACTAM 3.375 G in DEXTROSE 5% WATER 50 ML IV SCH ×2 (08:46→20:55)
[2022-03-06] MEDS: HEPARIN 5000 UNITS/ML VIAL SUBCUT SCH ×2 (08:48→20:54)
[2022-03-06] MEDS: SODIUM HYPOCHLORITE 0.125% 473ML SOLUTION TOP SCH ×2 (09:30→20:54)
[2022-03-06] MEDS ORDERED: ALBUMIN HUMAN 12.5GM/50ML (25%) IV ONE (11:35)
[2022-03-06] MEDS ORDERED: BUPIVACAINE HCL/PF 0.5% (5MG/ML) 10ML ONE (11:37)
[2022-03-06] MEDS ORDERED: VANCOMYCIN HCL 1 GM/VIAL ONE ×2 (11:37)
[2022-03-06] MEDS ORDERED: ONDANSETRON HCL 4MG/2ML INJ ONE (11:41)
[2022-03-06] MEDS ORDERED: ROCURONIUM BROMIDE 10MG/ML VIAL 5ML IV ONE (11:57)
[2022-03-06] MEDS ORDERED: MIDAZOLAM HCL 2 MG/2 ML VIAL ONE (11:59)
[2022-03-06] MEDS ORDERED: FENTANYL CITRATE/PF 50MCG/ML 2ML VIAL ONE (12:16)
[2022-03-06] MEDS ORDERED: DEXAMETHASONE 4MG/ML 1ML VIAL ONE (12:16)
[2022-03-06] MEDS ORDERED: ETOMIDATE 2MG/ML 10ML VIAL IV ONE (12:29)
[2022-03-06] MEDS ORDERED: FENTANYL CITRATE/PF 50MCG/ML 2ML VIAL IV PRN (13:15)
[2022-03-06] MEDS ORDERED: ATROPINE SULFATE 0.4MG/ML VIAL IV PRN (13:15)
[2022-03-06] MEDS ORDERED: HYDROMORPHONE HCL/PF 2MG/ML CPJ IV PRN (13:15)
[2022-03-06] MEDS ORDERED: [UNRECOGNIZED DRUG - REMARK] XX SCH (14:15)
[2022-03-07] VITALS (76 sets, daily range): BP systolic 44–225; BP diastolic 15–167
[2022-03-07] MEDS: MORPHINE SULFATE 2 MG/ML CPJ (NOT FOR IM USE) IV PRN ×2 (04:27→20:20)
[2022-03-07] MEDS: NOREPINEPHRINE 32 MG in DEXT 5% WATER 218 ML IV PRN (05:13)
[2022-03-07 05:39] LABS: HEMATOCRIT. 25.4 % (42.0-52.0); HEMOGLOBIN. 7.6 g/dL (14.0-18.0); MEAN CORPUSCULAR HEMOGLOBIN 28.8 pg (28.0-32.0); MEAN CORPUSCULAR VOLUME 95.4 fL (80.0-94.0); MEAN PLATELET VOLUME 9.3 fl (7.4-10.4); PLATELET 320 x1000/uL (130-400); RED BLOOD CELL COUNT 2.66 mill/uL (4.7-6.1); RED CELL DISTRIBUTION WIDTH 17.5 % (11.6-14.6)
[2022-03-07] MEDS: BLOOD SUGAR DIAGNOSTIC STRIP TEST SCH ×4 (06:27→20:53)
[2022-03-07] MEDS: INSULIN LISPRO 100 UNITS/ML SUBCUT SCH ×5 (06:37→21:24)
[2022-03-07 08:34] LABS: PLATELET ESTIMATE NORMAL
[2022-03-07] MEDS ORDERED: NALOXONE HCL 0.4MG/ML VIAL IV PRN (08:45)
[2022-03-07] MEDS: PANTOPRAZOLE SODIUM 40 MG/VIAL IV SCH (09:14)
[2022-03-07] MEDS: HEPARIN 5000 UNITS/ML VIAL SUBCUT SCH ×2 (09:14→21:26)
[2022-03-07] MEDS: PIPERACILLIN/TAZOBACTAM 3.375 G in DEXTROSE 5% WATER 50 ML IV SCH ×2 (09:15→21:22)
[2022-03-07] MEDS: INSULIN GLARGINE 100 UNITS/ML SUBCUT SCH (09:34)
[2022-03-07] MEDS ORDERED: INSULIN GLARGINE 100 UNITS/ML SUBCUT SCH (10:00)
[2022-03-07] MEDS ORDERED: VANCOMYCIN 500MG PREMIX 100 ML IV NR (21:00)
[2022-03-07] MEDS: EPOETIN ALFA-EPBX 4,000 UNIT/ML VIAL SUBCUT SCH (21:27)
[2022-03-08] VITALS (91 sets, daily range): BP systolic 45–198; BP diastolic 25–108
[2022-03-08] MEDS: BLOOD SUGAR DIAGNOSTIC STRIP TEST SCH ×4 (06:53→20:39)
[2022-03-08 07:03] LABS: BASOPHILS % 0.3 % (0.0-2.0); EOSINOPHILS % 0.2 % (0.0-5.0); HEMATOCRIT. 23.3 % (42.0-52.0); HEMOGLOBIN. 7.3 g/dL (14.0-18.0); LYMPHOCYTES % 7.9 % (20.0-50.0); MEAN CORPUSCULAR HEMOGLOBIN 28.3 pg (28.0-32.0); MEAN CORPUSCULAR VOLUME 90.5 fL (80.0-94.0); MEAN PLATELET VOLUME 9.8 fl (7.4-10.4); MONOCYTES % 7.9 % (2.0-8.0); NEUTROPHILS % 83.7 % (40.0-76.0); PLATELET 339 x1000/uL (130-400); RED BLOOD CELL COUNT 2.58 mill/uL (4.7-6.1); RED CELL DISTRIBUTION WIDTH 17.1 % (11.6-14.6)
[2022-03-08] MEDS: INSULIN LISPRO 100 UNITS/ML SUBCUT SCH ×4 (07:18→20:37)
[2022-03-08] MEDS: PANTOPRAZOLE SODIUM 40 MG/VIAL IV SCH (09:03)
[2022-03-08] MEDS: HEPARIN 5000 UNITS/ML VIAL SUBCUT SCH ×2 (09:04→20:20)
[2022-03-08] MEDS: PIPERACILLIN/TAZOBACTAM 3.375 G in DEXTROSE 5% WATER 50 ML IV SCH ×2 (09:04→20:20)
[2022-03-08] MEDS: INSULIN GLARGINE 100 UNITS/ML SUBCUT SCH (09:06)
[2022-03-08] MEDS: MIDODRINE HCL 5MG TABLET PO SCH ×3 (09:44→18:00)
[2022-03-09] VITALS (89 sets, daily range): BP systolic 40–212; BP diastolic 17–123
[2022-03-09 05:18] LABS: HEMATOCRIT. 29.2 % (42.0-52.0); HEMOGLOBIN. 9.1 g/dL (14.0-18.0); MEAN CORPUSCULAR HEMOGLOBIN 28.8 pg (28.0-32.0); MEAN CORPUSCULAR VOLUME 92.3 fL (80.0-94.0); MEAN PLATELET VOLUME 9.6 fl (7.4-10.4); PLATELET 350 x1000/uL (130-400); RED BLOOD CELL COUNT 3.16 mill/uL (4.7-6.1); RED CELL DISTRIBUTION WIDTH 17.4 % (11.6-14.6)
[2022-03-09] MEDS: INSULIN LISPRO 100 UNITS/ML SUBCUT SCH ×4 (06:24→21:17)
[2022-03-09] MEDS: BLOOD SUGAR DIAGNOSTIC STRIP TEST SCH ×4 (06:24→21:00)
[2022-03-09] MEDS: HEPARIN 5000 UNITS/ML VIAL SUBCUT SCH ×2 (09:00→21:14)
[2022-03-09] MEDS: PANTOPRAZOLE SODIUM 40 MG/VIAL IV SCH (10:18)
[2022-03-09] MEDS: INSULIN GLARGINE 100 UNITS/ML SUBCUT SCH (10:19)
[2022-03-09] MEDS: PIPERACILLIN/TAZOBACTAM 3.375 G in DEXTROSE 5% WATER 50 ML IV SCH ×2 (10:19→21:15)
[2022-03-09 10:44] LABS: PLATELET ESTIMATE NORMAL
[2022-03-09] MEDS: PHENYLEPHRINE 100 MG in DEXT 5% WATER 240 ML IV PRN ×2 (12:27→22:25)
[2022-03-09] MEDS: MIDODRINE HCL 5MG TABLET PO SCH ×2 (15:13→16:47)
[2022-03-09] MEDS: MORPHINE SULFATE 2 MG/ML CPJ (NOT FOR IM USE) IV PRN (16:47)
[2022-03-09] MEDS: EPOETIN ALFA-EPBX 4,000 UNIT/ML VIAL SUBCUT SCH (21:37)
[2022-03-10] VITALS (86 sets, daily range): BP systolic 51–198; BP diastolic 33–139
[2022-03-10] MEDS: BLOOD SUGAR DIAGNOSTIC STRIP TEST SCH ×4 (06:30→21:11)
[2022-03-10] MEDS: INSULIN LISPRO 100 UNITS/ML SUBCUT SCH ×4 (06:36→21:19)
[2022-03-10] MEDS: PIPERACILLIN/TAZOBACTAM 3.375 G in DEXTROSE 5% WATER 50 ML IV SCH ×2 (09:10→21:18)
[2022-03-10] MEDS: PANTOPRAZOLE SODIUM 40 MG/VIAL IV SCH (09:11)
[2022-03-10] MEDS: MIDODRINE HCL 5MG TABLET PO SCH ×3 (09:12→18:47)
[2022-03-10] MEDS: HEPARIN 5000 UNITS/ML VIAL SUBCUT SCH ×2 (09:12→21:18)
[2022-03-10] MEDS: INSULIN GLARGINE 100 UNITS/ML SUBCUT SCH (09:13)
[2022-03-10] MEDS ORDERED: ALBUMIN HUMAN 12.5GM/50ML (25%) IV NR (15:00)
[2022-03-10 17:57] LABS: HEMATOCRIT. 22.2 % (42.0-52.0); MEAN CORPUSCULAR HEMOGLOBIN 28.8 pg (28.0-32.0); MEAN CORPUSCULAR VOLUME 92.4 fL (80.0-94.0); MEAN PLATELET VOLUME 9.4 fl (7.4-10.4); PLATELET 354 x1000/uL (130-400); RED CELL DISTRIBUTION WIDTH 17.3 % (11.6-14.6)
[2022-03-10 18:05] LABS: HEMOGLOBIN. 6.9 g/dL (14.0-18.0)
[2022-03-10 18:30] LABS: PLATELET ESTIMATE NORMAL
[2022-03-11] VITALS (92 sets, daily range): BP systolic 69–167; BP diastolic 23–112
[2022-03-11 05:46] LABS: HEMATOCRIT. 21.2 % (42.0-52.0); MEAN CORPUSCULAR VOLUME 91.8 fL (80.0-94.0); MEAN PLATELET VOLUME 9.6 fl (7.4-10.4); PLATELET 348 x1000/uL (130-400); RED BLOOD CELL COUNT 2.31 mill/uL (4.7-6.1); RED CELL DISTRIBUTION WIDTH 17.1 % (11.6-14.6)
[2022-03-11] MEDS: BLOOD SUGAR DIAGNOSTIC STRIP TEST SCH ×4 (05:57→21:27)
[2022-03-11 06:00] LABS: HEMOGLOBIN. 6.7 g/dL (14.0-18.0)
[2022-03-11] MEDS: INSULIN LISPRO 100 UNITS/ML SUBCUT SCH ×4 (07:00→21:00)
[2022-03-11] MEDS: PANTOPRAZOLE SODIUM 40 MG/VIAL IV SCH (08:44)
[2022-03-11] MEDS: PIPERACILLIN/TAZOBACTAM 3.375 G in DEXTROSE 5% WATER 50 ML IV SCH ×2 (08:44→21:27)
[2022-03-11] MEDS: HEPARIN 5000 UNITS/ML VIAL SUBCUT SCH ×3 (09:00→21:32)
[2022-03-11] MEDS: MIDODRINE HCL 5MG TABLET PO SCH ×4 (09:00→17:17)
[2022-03-11 09:13] LABS: PLATELET ESTIMATE NORMAL
[2022-03-11] MEDS: INSULIN GLARGINE 100 UNITS/ML SUBCUT SCH ×2 (10:00→10:44)
[2022-03-11] MEDS: PHENYLEPHRINE 100 MG in DEXT 5% WATER 240 ML IV PRN (10:33)
[2022-03-11] MEDS ORDERED: EPOETIN ALFA-EPBX 4,000 UNIT/ML VIAL SUBCUT SCH (21:00)
[2022-03-11] MEDS: MORPHINE SULFATE 2 MG/ML CPJ (NOT FOR IM USE) IV PRN (21:28)
[2022-03-12] VITALS (44 sets, daily range): BP systolic 42–157; BP diastolic 21–101
[2022-03-12] MEDS: BLOOD SUGAR DIAGNOSTIC STRIP TEST SCH ×4 (06:03→20:25)
[2022-03-12] MEDS: INSULIN LISPRO 100 UNITS/ML SUBCUT SCH ×4 (07:40→20:33)
[2022-03-12] MEDS: PANTOPRAZOLE SODIUM 40 MG/VIAL IV SCH (08:28)
[2022-03-12] MEDS: MIDODRINE HCL 5MG TABLET PO SCH ×3 (08:29→17:19)
[2022-03-12] MEDS: HEPARIN 5000 UNITS/ML VIAL SUBCUT SCH ×2 (08:29→20:32)
[2022-03-12] MEDS: PIPERACILLIN/TAZOBACTAM 3.375 G in DEXTROSE 5% WATER 50 ML IV SCH ×2 (08:30→20:31)
[2022-03-12] MEDS: INSULIN GLARGINE 100 UNITS/ML SUBCUT SCH (10:26)
[2022-03-12 11:09] LABS: HEMATOCRIT 23.4 % (42.0-52.0); HEMOGLOBIN 7.4 g/dL (14.0-18.0); MEAN CORPUSCULAR HEMOGLOBIN 28.9 pg (28.0-32.0); MEAN CORPUSCULAR VOLUME 91.5 fL (80.0-94.0); PLATELET 406 x1000/uL (130-400); RED BLOOD CELL COUNT 2.56 mill/uL (4.7-6.1); RED CELL DISTRIBUTION WIDTH 17.4 % (11.6-14.6)
[2022-03-13] VITALS (11 sets, daily range): BP systolic 90–146; BP diastolic 36–77
[2022-03-13] MEDS ORDERED: NALOXONE HCL 0.4MG/ML VIAL IV PRN (01:45)
[2022-03-13] MEDS: BLOOD SUGAR DIAGNOSTIC STRIP TEST SCH ×5 (07:30→21:05)
[2022-03-13] MEDS: INSULIN LISPRO 100 UNITS/ML SUBCUT SCH ×4 (08:00→21:03)
[2022-03-13] MEDS: PANTOPRAZOLE SODIUM 40 MG/VIAL IV SCH (08:31)
[2022-03-13] MEDS: MIDODRINE HCL 5MG TABLET PO SCH ×3 (08:31→17:10)
[2022-03-13] MEDS: GABAPENTIN 300MG CAPSULE PO SCH ×3 (08:32→17:09)
[2022-03-13] MEDS: HEPARIN 5000 UNITS/ML VIAL SUBCUT SCH ×2 (08:32→21:07)
[2022-03-13] MEDS: PIPERACILLIN/TAZOBACTAM 3.375 G in DEXTROSE 5% WATER 50 ML IV SCH (11:01)
[2022-03-13] MEDS: INSULIN GLARGINE 100 UNITS/ML SUBCUT SCH (13:41)
[2022-03-14] VITALS (17 sets, daily range): BP systolic 64–130; BP diastolic 32–85
[2022-03-14 06:24] LABS: BASOPHILS % 0.9 % (0.0-2.0); EOSINOPHILS % 0.4 % (0.0-5.0); HEMATOCRIT. 25.8 % (42.0-52.0); HEMOGLOBIN. 8.1 g/dL (14.0-18.0); MEAN CORPUSCULAR HEMOGLOBIN 29.9 pg (28.0-32.0); MEAN CORPUSCULAR VOLUME 94.6 fL (80.0-94.0); MEAN PLATELET VOLUME 9.4 fl (7.4-10.4); NEUTROPHILS % 70.7 % (40.0-76.0); PLATELET 474 x1000/uL (130-400); RED BLOOD CELL COUNT 2.72 mill/uL (4.7-6.1); RED CELL DISTRIBUTION WIDTH 18.4 % (11.6-14.6)
[2022-03-14] MEDS: INSULIN LISPRO 100 UNITS/ML SUBCUT SCH ×4 (07:51→21:23)
[2022-03-14] MEDS: BLOOD SUGAR DIAGNOSTIC STRIP TEST SCH ×4 (07:51→21:00)
[2022-03-14] MEDS: PANTOPRAZOLE SODIUM 40 MG/VIAL IV SCH (09:20)
[2022-03-14] MEDS: GABAPENTIN 300MG CAPSULE PO SCH ×3 (09:20→17:15)
[2022-03-14] MEDS: MIDODRINE HCL 5MG TABLET PO SCH ×3 (09:20→17:16)
[2022-03-14] MEDS: HEPARIN 5000 UNITS/ML VIAL SUBCUT SCH ×2 (09:21→21:22)
[2022-03-14] MEDS: INSULIN GLARGINE 100 UNITS/ML SUBCUT SCH (10:00)
[2022-03-14] MEDS: EPOETIN ALFA-EPBX 4,000 UNIT/ML VIAL SUBCUT SCH (21:22)
[2022-03-15] VITALS (12 sets, daily range): BP systolic 83–158; BP diastolic 22–105
[2022-03-15] MEDS: PANTOPRAZOLE SODIUM 40 MG/VIAL IV SCH (08:49)
[2022-03-15] MEDS: GABAPENTIN 300MG CAPSULE PO SCH ×3 (08:52→17:27)
[2022-03-15] MEDS: MIDODRINE HCL 5MG TABLET PO SCH ×3 (08:52→17:27)
[2022-03-15] MEDS: HEPARIN 5000 UNITS/ML VIAL SUBCUT SCH ×2 (08:52→21:38)
[2022-03-15] MEDS: INSULIN LISPRO 100 UNITS/ML SUBCUT SCH ×4 (08:56→21:39)
[2022-03-15] MEDS: INSULIN GLARGINE 100 UNITS/ML SUBCUT SCH (10:18)
[2022-03-15] MEDS: BLOOD SUGAR DIAGNOSTIC STRIP TEST SCH (21:00)
[2022-03-15] MEDS: AMOXICILLIN/POTASSIUM CLAVULANATE 500/125MG TAB PO SCH (21:38)
[2022-03-16] VITALS (16 sets, daily range): BP systolic 97–166; BP diastolic 26–107
[2022-03-16 05:53] LABS: BASOPHILS % 0.9 % (0.0-2.0); EOSINOPHILS % 0.1 % (0.0-5.0); HEMATOCRIT. 27.5 % (42.0-52.0); HEMOGLOBIN. 8.7 g/dL (14.0-18.0); MEAN CORPUSCULAR HEMOGLOBIN 30.6 pg (28.0-32.0); MEAN CORPUSCULAR VOLUME 96.5 fL (80.0-94.0); MEAN PLATELET VOLUME 9.2 fl (7.4-10.4); PLATELET 424 x1000/uL (130-400); RED BLOOD CELL COUNT 2.85 mill/uL (4.7-6.1); RED CELL DISTRIBUTION WIDTH 19.4 % (11.6-14.6)
[2022-03-16] MEDS: MIDODRINE HCL 5MG TABLET PO SCH (08:47)
[2022-03-16] MEDS: GABAPENTIN 300MG CAPSULE PO SCH ×3 (08:47→17:47)
[2022-03-16] MEDS: AMOXICILLIN/POTASSIUM CLAVULANATE 500/125MG TAB PO SCH (08:47)
[2022-03-16] MEDS: HEPARIN 5000 UNITS/ML VIAL SUBCUT SCH ×2 (08:48→21:21)
[2022-03-16] MEDS: INSULIN LISPRO 100 UNITS/ML SUBCUT SCH ×4 (08:49→21:00)
[2022-03-16] MEDS: PANTOPRAZOLE SODIUM 40 MG/VIAL IV SCH (09:00)
[2022-03-16] MEDS: MORPHINE SULFATE 2 MG/ML CPJ (NOT FOR IM USE) IV PRN (10:11)
[2022-03-16] MEDS: INSULIN GLARGINE 100 UNITS/ML SUBCUT SCH (10:12)
[2022-03-16] MEDS: BLOOD SUGAR DIAGNOSTIC STRIP TEST SCH (21:00)
[2022-03-16] MEDS: EPOETIN ALFA-EPBX 4,000 UNIT/ML VIAL SUBCUT SCH (21:21)
[2022-03-17] VITALS (17 sets, daily range): BP systolic 83–172; BP diastolic 39–157
[2022-03-17] MEDS: MORPHINE SULFATE 2 MG/ML CPJ (NOT FOR IM USE) IV PRN (02:08)
[2022-03-17] MEDS: BLOOD SUGAR DIAGNOSTIC STRIP TEST SCH ×4 (07:51→21:49)
[2022-03-17] MEDS: GABAPENTIN 300MG CAPSULE PO SCH ×3 (08:51→17:44)
[2022-03-17] MEDS: HEPARIN 5000 UNITS/ML VIAL SUBCUT SCH ×2 (08:52→21:50)
[2022-03-17] MEDS: PANTOPRAZOLE SODIUM 40 MG/VIAL IV SCH (08:53)
[2022-03-17] MEDS: INSULIN LISPRO 100 UNITS/ML SUBCUT SCH ×4 (08:58→21:51)
[2022-03-17] MEDS: INSULIN GLARGINE 100 UNITS/ML SUBCUT SCH (10:03)
[2022-03-17 18:23] LABS: HEMATOCRIT. 24.8 % (42.0-52.0); HEMOGLOBIN. 7.8 g/dL (14.0-18.0); MEAN CORPUSCULAR VOLUME 95.2 fL (80.0-94.0); MEAN PLATELET VOLUME 9.2 fl (7.4-10.4); PLATELET 366 x1000/uL (130-400); RED BLOOD CELL COUNT 2.61 mill/uL (4.7-6.1); RED CELL DISTRIBUTION WIDTH 19.5 % (11.6-14.6)
[2022-03-17 22:18] LABS: PLATELET ESTIMATE NORMAL
[2022-03-18] VITALS (15 sets, daily range): BP systolic 90–128; BP diastolic 29–79
[2022-03-18] MEDS: ACETAMINOPHEN 325MG TABLET PO PRN ×3 (04:26→23:17)
[2022-03-18] MEDS: BLOOD SUGAR DIAGNOSTIC STRIP TEST SCH ×5 (07:30→21:35)
[2022-03-18] MEDS: INSULIN LISPRO 100 UNITS/ML SUBCUT SCH ×4 (07:39→21:36)
[2022-03-18 08:06] LABS: BASOPHILS % 0.7 % (0.0-2.0); EOSINOPHILS % 0.4 % (0.0-5.0); HEMATOCRIT. 26.1 % (42.0-52.0); HEMOGLOBIN. 8.3 g/dL (14.0-18.0); LYMPHOCYTES % 21.7 % (20.0-50.0); MEAN CORPUSCULAR HEMOGLOBIN 30.1 pg (28.0-32.0); MEAN CORPUSCULAR VOLUME 94.6 fL (80.0-94.0); MEAN PLATELET VOLUME 9.4 fl (7.4-10.4); MONOCYTES % 14.2 % (2.0-8.0); PLATELET 349 x1000/uL (130-400); RED BLOOD CELL COUNT 2.76 mill/uL (4.7-6.1)
[2022-03-18] MEDS: GABAPENTIN 300MG CAPSULE PO SCH ×3 (09:47→17:00)
[2022-03-18] MEDS: PANTOPRAZOLE SODIUM 40 MG/VIAL IV SCH (09:48)
[2022-03-18] MEDS: HEPARIN 5000 UNITS/ML VIAL SUBCUT SCH ×2 (09:49→21:34)
[2022-03-18] MEDS: INSULIN GLARGINE 100 UNITS/ML SUBCUT SCH (10:18)
[2022-03-18] MEDS ORDERED: EPOETIN ALFA-EPBX 4,000 UNIT/ML VIAL SUBCUT SCH (21:00)
[2022-03-19] VITALS: BP 136/38
[2022-03-19] MEDS: LOPERAMIDE HCL 2MG CAPSULE PO PRN ×2 (00:34→06:08)
[2022-03-19 04:00] VITALS: BP 124/32
[2022-03-19] MEDS: ACETAMINOPHEN 325MG TABLET PO PRN (05:22)
[2022-03-19] MEDS: INSULIN LISPRO 100 UNITS/ML SUBCUT SCH ×4 (06:48→21:00)
[2022-03-19 07:58] VITALS: BP 128/42
[2022-03-19 08:13] LABS: BASOPHILS % 0.9 % (0.0-2.0); EOSINOPHILS % 1.1 % (0.0-5.0); HEMOGLOBIN. 7.5 g/dL (14.0-18.0); MEAN CORPUSCULAR VOLUME 95.7 fL (80.0-94.0); MEAN PLATELET VOLUME 9.3 fl (7.4-10.4); MONOCYTES % 11.5 % (2.0-8.0); NEUTROPHILS % 65.5 % (40.0-76.0); PLATELET 289 x1000/uL (130-400); RED CELL DISTRIBUTION WIDTH 18.2 % (11.6-14.6)
[2022-03-19] MEDS: PANTOPRAZOLE SODIUM 40 MG/VIAL IV SCH (08:42)
[2022-03-19] MEDS: HEPARIN 5000 UNITS/ML VIAL SUBCUT SCH ×2 (08:42→22:24)
[2022-03-19] MEDS: GABAPENTIN 300MG CAPSULE PO SCH ×3 (08:42→17:42)
[2022-03-19] MEDS: BLOOD SUGAR DIAGNOSTIC STRIP TEST SCH ×3 (11:46→21:00)
[2022-03-19] MEDS ORDERED: INSLIS SUBCUT (11:57)
[2022-03-19] MEDS ORDERED: HEPA500015 SUBCUT (11:57)
[2022-03-19] MEDS ORDERED: PANT40SU PO (11:57)
[2022-03-19] MEDS ORDERED: IMOD PO (11:57)
[2022-03-19] MEDS ORDERED: TOPUD PO (11:57)
[2022-03-19] MEDS ORDERED: GABA-532 PO (11:57)
[2022-03-19] MEDS ORDERED: EPOE40009 SUBCUT (11:57)
[2022-03-19 12:00] VITALS: BP 107/44
[2022-03-19 16:00] VITALS: BP 137/42
[2022-03-19 20:00] VITALS: BP 117/72
[2022-03-20] VITALS (14 sets, daily range): BP systolic 101–152; BP diastolic 35–112
[2022-03-20] MEDS: INSULIN LISPRO 100 UNITS/ML SUBCUT SCH ×4 (07:19→22:05)
[2022-03-20] MEDS: BLOOD SUGAR DIAGNOSTIC STRIP TEST SCH ×4 (07:35→21:58)
[2022-03-20 07:48] LABS: BASOPHILS % 1.1 % (0.0-2.0); EOSINOPHILS % 1.6 % (0.0-5.0); HEMATOCRIT. 24.6 % (42.0-52.0); HEMOGLOBIN. 7.8 g/dL (14.0-18.0); LYMPHOCYTES % 21.7 % (20.0-50.0); MEAN CORPUSCULAR HEMOGLOBIN 30.2 pg (28.0-32.0); MEAN CORPUSCULAR VOLUME 95.6 fL (80.0-94.0); MONOCYTES % 12.9 % (2.0-8.0); NEUTROPHILS % 62.7 % (40.0-76.0); PLATELET 272 x1000/uL (130-400); RED BLOOD CELL COUNT 2.57 mill/uL (4.7-6.1); RED CELL DISTRIBUTION WIDTH 17.6 % (11.6-14.6)
[2022-03-20] MEDS: PANTOPRAZOLE SODIUM 40 MG/VIAL IV SCH (08:42)
[2022-03-20] MEDS: GABAPENTIN 300MG CAPSULE PO SCH ×3 (08:42→18:17)
[2022-03-20] MEDS: HEPARIN 5000 UNITS/ML VIAL SUBCUT SCH ×2 (08:43→22:06)
[2022-03-20] MEDS: ACETAMINOPHEN 325MG TABLET PO PRN ×2 (08:44→18:18)
[2022-03-21] VITALS: BP 115/66
[2022-03-21] MEDS: ACETAMINOPHEN 325MG TABLET PO PRN ×2 (02:48→10:08)
[2022-03-21 04:00] VITALS: BP 140/42
[2022-03-21] MEDS: BLOOD SUGAR DIAGNOSTIC STRIP TEST SCH ×3 (06:46→17:10)
[2022-03-21] MEDS: INSULIN LISPRO 100 UNITS/ML SUBCUT SCH ×3 (06:47→17:40)
[2022-03-21] MEDS: LOPERAMIDE HCL 2MG CAPSULE PO PRN (06:47)
[2022-03-21 08:00] VITALS: BP 113/69
[2022-03-21] MEDS: PANTOPRAZOLE SODIUM 40 MG/VIAL IV SCH (10:07)
[2022-03-21] MEDS: HEPARIN 5000 UNITS/ML VIAL SUBCUT SCH (10:08)
[2022-03-21] MEDS: GABAPENTIN 300MG CAPSULE PO SCH ×3 (10:08→18:15)
[2022-03-21 12:00] VITALS: BP 101/44
[2022-03-21 16:00] VITALS: BP 106/38
[2022-03-24 04:07] LABS: OVA & PARASITE EXAM Final report (.)
== END 2022-03-21 21:30 | DRG 853 ==
LOC: ER 20:02 → MICUSO 03-04 00:54 → EDBEDREQSVC 03-04 00:58 → EDBEDREQTM 03-04 00:58 → EDBEDREQ 03-04 00:58 → EDBEDREQDT 03-04 00:58 → MICUSO 03-04 04:46 → 5EST 03-13 00:42 → 8WST 03-18 10:37
PROVIDERS: ADMIT Internal Medicine; ATTEND Internal Medicine
PROC: 05HY33Z Insertion of Infusion Device into Upper Vein, Percutaneous Approach (ICD-10-PCS; 2022-03-04)
PROC: 5A1D70Z Performance of Urinary Filtration, Intermittent, Less than 6 Hours Per Day (ICD-10-PCS; 2022-03-04)
PROC: 0Y6H0Z1 Detachment at Right Lower Leg, High, Open Approach (ICD-10-PCS; principal; 2022-03-06)
PROC: 5A1D70Z Performance of Urinary Filtration, Intermittent, Less than 6 Hours Per Day (ICD-10-PCS; 2022-03-07)
PROC: 5A1D70Z Performance of Urinary Filtration, Intermittent, Less than 6 Hours Per Day (ICD-10-PCS; 2022-03-09)
PROC: 30233N1 Transfusion of Nonautologous Red Blood Cells into Peripheral Vein, Percutaneous Approach (ICD-10-PCS; 2022-03-11)
PROC: 5A1D70Z Performance of Urinary Filtration, Intermittent, Less than 6 Hours Per Day (ICD-10-PCS; 2022-03-11)
PROC: 5A1D70Z Performance of Urinary Filtration, Intermittent, Less than 6 Hours Per Day (ICD-10-PCS; 2022-03-14)
PROC: 5A1D70Z Performance of Urinary Filtration, Intermittent, Less than 6 Hours Per Day (ICD-10-PCS; 2022-03-16)
PROC: 5A1D70Z Performance of Urinary Filtration, Intermittent, Less than 6 Hours Per Day (ICD-10-PCS; 2022-03-18)
PROC: 5A1D70Z Performance of Urinary Filtration, Intermittent, Less than 6 Hours Per Day (ICD-10-PCS; 2022-03-20)
DX: A41.9 Sepsis, unspecified organism (principal); N18.6 End stage renal disease; R65.21 Severe sepsis with septic shock; I96 Gangrene, not elsewhere classified; I12.0 Hypertensive chronic kidney disease with stage 5 chronic kidney disease or end stage renal disease; E11.52 Type 2 diabetes mellitus with diabetic peripheral angiopathy with gangrene; E87.1 Hypo-osmolality and hyponatremia; Z20.822 Contact with and (suspected) exposure to COVID-19; E11.22 Type 2 diabetes mellitus with diabetic chronic kidney disease; D63.1 Anemia in chronic kidney disease; K52.9 Noninfective gastroenteritis and colitis, unspecified; E83.39 Other disorders of phosphorus metabolism; E87.5 Hyperkalemia; B19.20 Unspecified viral hepatitis C without hepatic coma; D63.8 Anemia in other chronic diseases classified elsewhere; E78.5 Hyperlipidemia, unspecified; G89.29 Other chronic pain; Z91.15 Patient's noncompliance with renal dialysis; Z99.2 Dependence on renal dialysis; Z79.82 Long term (current) use of aspirin; Z87.891 Personal history of nicotine dependence; Z89.512 Acquired absence of left leg below knee; Z89.611 Acquired absence of right leg above knee; Z90.49 Acquired absence of other specified parts of digestive tract
CPT/HCPCS: 36415; 36573; 71045; 73130; 73620; 80048; 80053; 80202; 82962; 83036; 83605; 83735; 84100; 84132; 84145; 84484; 85025; 85027; 86705; 86709; 86803; 86850; 86900; 86920; 87015; 87045; 87177; 87209; 87340; 87426; 87427; 87449; 88307; 88311; 89055; 90935; 93005; 93306; 99291; A6261; C1725; C1892; C9113; J0885; J1100; J1170; J1644; J1815; J2250; J2270; J2370; J2405; J2543; J3010; J3370; J3490; J7040; J7060; L8514; P9016; P9047

== ENCOUNTER 2022-04-01 12:32 | Inpatient (IN) | payer MEDICARE, MEDICAID ==
[~2022-04-01] VITALS: Ht 172.7 cm; Wt 55.3 kg
[~2022-04-01 12:32] MED LIST changes: -ACET-2178 PO; -AMLO10TA80 PO; -ASPI-1159 PO; -ATOR10TA69 MT; -CALC667T5 PO; -CICL90CR11 TP; -CINA30 MT; -DOCU-150 PO; +EPOE40009 SUBCUT; -FAMO20TA8 PO; -GABA-529 PO; +GABA-532 PO; +HEPA500015 SUBCUT; -HYDR-4001 PO; +IMOD PO; +INSLIS SUBCUT; -INSU100I24 SQ; -INSU3INS8 SUBCUT; -LOPE2TAB26 PO; -NEOM28.38 TP; -NEPVIT PO; +PANT40SU PO; -SEVE800T8 PO; -SYSOS EACHEYE; +TOPUD PO
[2022-04-02] VITALS (13 sets, daily range): BP systolic 128–182; BP diastolic 60–93
[2022-04-02 04:43] LABS: HEMATOCRIT. 24.4 % (42.0-52.0); HEMOGLOBIN. 7.8 g/dL (14.0-18.0); MEAN CORPUSCULAR HEMOGLOBIN 30.2 pg (28.0-32.0); MEAN CORPUSCULAR VOLUME 93.9 fL (80.0-94.0); MEAN PLATELET VOLUME 8.2 fl (7.4-10.4); PLATELET 552 x1000/uL (130-400); RED CELL DISTRIBUTION WIDTH 16.3 % (11.6-14.6)
[2022-04-02] MEDS ORDERED: PIPERACILLIN/TAZ 3.375G PREMIX 50 ML IV ONE (06:15)
[2022-04-02 07:58] LABS: PLATELET ESTIMATE INCREASED
[2022-04-02] MEDS ORDERED: ACETAMINOPHEN 325MG TABLET PO PRN (11:45)
[2022-04-02] MEDS ORDERED: DIPHENHYDRAMINE 50MG/ML VIAL IV PRN (11:45)
[2022-04-02] MEDS ORDERED: ONDANSETRON HCL 4MG/2ML INJ IV PRN (11:45)
[2022-04-02] MEDS ORDERED: PIPERACILLIN/TAZOBACTAM 3.375 G in DEXTROSE 5% WATER 50 ML IV SCH ×2 (11:45→21:00)
[2022-04-02] MEDS ORDERED: IPRATROPIUM/ALBUTEROL 0.5-3(2.5)MG/3ML NEB HHN PRN (11:45)
[2022-04-02] MEDS ORDERED: CLONIDINE 0.1MG TABLET PO PRN (11:45)
[2022-04-02] MEDS: INSULIN LISPRO 100 UNITS/ML SUBCUT SCH ×2 (16:56→21:00)
[2022-04-02] MEDS: BLOOD SUGAR DIAGNOSTIC STRIP TEST SCH ×2 (16:56→21:00)
[2022-04-02 17:30] LABS: HEPATITIS B SURFACE ANTIGEN NEGATIVE
[2022-04-02] MEDS: DEXTROSE 50% WATER 50ML SYRINGE IV PRN (19:06)
[2022-04-02] MEDS: PIPERACILLIN/TAZOBACTAM 3.375 G in DEXTROSE 5% WATER 50 ML IV SCH (21:00)
[2022-04-02] MEDS ORDERED: EPOETIN ALFA-EPBX 4,000 UNIT/ML VIAL SUBCUT SCH (21:00)
[2022-04-03] VITALS: BP 149/73
[2022-04-03 04:00] VITALS: BP 156/83
[2022-04-03] MEDS: DEXTROSE 50% WATER 50ML SYRINGE IV PRN (05:26)
[2022-04-03] MEDS: INSULIN LISPRO 100 UNITS/ML SUBCUT SCH ×4 (05:43→20:22)
[2022-04-03] MEDS: BLOOD SUGAR DIAGNOSTIC STRIP TEST SCH ×4 (05:43→20:21)
[2022-04-03 07:31] LABS: HEMATOCRIT. 24.9 % (42.0-52.0); HEMOGLOBIN. 8.1 g/dL (14.0-18.0); MEAN CORPUSCULAR HEMOGLOBIN 30.5 pg (28.0-32.0); MEAN CORPUSCULAR VOLUME 93.6 fL (80.0-94.0); PLATELET 496 x1000/uL (130-400); RED BLOOD CELL COUNT 2.66 mill/uL (4.7-6.1); RED CELL DISTRIBUTION WIDTH 16.2 % (11.6-14.6)
[2022-04-03] MEDS: PIPERACILLIN/TAZOBACTAM 3.375 G in DEXTROSE 5% WATER 50 ML IV SCH ×2 (08:24→20:22)
[2022-04-03 08:43] VITALS: BP 109/84
[2022-04-03 10:55] LABS: PLATELET ESTIMATE INCREASED
[2022-04-03 12:00] VITALS: BP 150/76
[2022-04-03 16:00] VITALS: BP 139/76
[2022-04-03 20:00] VITALS: BP 113/67
[2022-04-04] VITALS (10 sets, daily range): BP systolic 105–135; BP diastolic 60–78
[2022-04-04] MEDS: INSULIN LISPRO 100 UNITS/ML SUBCUT SCH ×4 (05:36→21:00)
[2022-04-04] MEDS: BLOOD SUGAR DIAGNOSTIC STRIP TEST SCH ×4 (05:36→21:00)
[2022-04-04 06:12] LABS: HEMATOCRIT. 26.1 % (42.0-52.0); HEMOGLOBIN. 8.4 g/dL (14.0-18.0); MEAN CORPUSCULAR VOLUME 93.7 fL (80.0-94.0); PLATELET 497 x1000/uL (130-400); RED BLOOD CELL COUNT 2.78 mill/uL (4.7-6.1); RED CELL DISTRIBUTION WIDTH 16.5 % (11.6-14.6)
[2022-04-04] MEDS: PIPERACILLIN/TAZOBACTAM 3.375 G in DEXTROSE 5% WATER 50 ML IV SCH (09:00)
[2022-04-04 11:00] LABS: PLATELET ESTIMATE INCREASED
[2022-04-05] VITALS: BP 110/67
[2022-04-05] MEDS: PIPERACILLIN/TAZOBACTAM 3.375 G in DEXTROSE 5% WATER 50 ML IV SCH ×2 (00:17→08:25)
[2022-04-05 04:00] VITALS: BP 133/70
[2022-04-05] MEDS: INSULIN LISPRO 100 UNITS/ML SUBCUT SCH ×2 (07:29→12:40)
[2022-04-05] MEDS: BLOOD SUGAR DIAGNOSTIC STRIP TEST SCH ×2 (07:29→12:52)
[2022-04-05 08:00] VITALS: BP 127/68
== END 2022-04-05 14:40 | disposition home or self-care (01) | DRG 500 ==
LOC: ER 12:32 → 8WST 04-02 10:15 → EDBEDREQ 04-02 10:18 → 8WST 04-03 12:39
PROVIDERS: ADMIT Internal Medicine; ATTEND Internal Medicine
PROC: 5A1D70Z Performance of Urinary Filtration, Intermittent, Less than 6 Hours Per Day (ICD-10-PCS; 2022-04-02)
PROC: 0LBQ0ZZ Excision of Right Knee Tendon, Open Approach (ICD-10-PCS; principal; 2022-04-04)
PROC: 5A1D70Z Performance of Urinary Filtration, Intermittent, Less than 6 Hours Per Day (ICD-10-PCS; 2022-04-04)
DX: T87.43 Infection of amputation stump, right lower extremity (principal); N18.6 End stage renal disease; I12.0 Hypertensive chronic kidney disease with stage 5 chronic kidney disease or end stage renal disease; L03.90 Cellulitis, unspecified; E11.22 Type 2 diabetes mellitus with diabetic chronic kidney disease; E11.51 Type 2 diabetes mellitus with diabetic peripheral angiopathy without gangrene; E83.51 Hypocalcemia; E87.6 Hypokalemia; D63.1 Anemia in chronic kidney disease; Z89.511 Acquired absence of right leg below knee; Z99.2 Dependence on renal dialysis; Z89.512 Acquired absence of left leg below knee; Y83.8 Other surgical procedures as the cause of abnormal reaction of the patient, or of later complication, without mention of misadventure at the time of the procedure
CPT/HCPCS: 36415; 71045; 73700; 80048; 82962; 83036; 85025; 86705; 86709; 86803; 87070; 87075; 87340; 87426; 87493; 90935; 93005; 93923; 93970; 99285; A6261; J0885; J2543; J7060